=== PATIENT | female | born 1930 | race Caucasian/White ===

== ENCOUNTER 2017-10-21 16:16 | Inpatient (IN) ==
[2017-10-21 18:01] LABS: Basophils # 0.1 K/mcL (0.0-0.2); Basophils % 0.6 %; Eosinophils # 0.5 K/mcL (0.0-0.6); Eosinophils % 4.9 %; Hemoglobin 13.4 g/dL (11.5-15.4); Immature Granulocytes % 0.2 % (0-4); Lymphocytes # 2.2 K/mcL (0.6-4.6); Lymphocytes % 20.8 %; Mean Corpuscular HGB Conc 34.4 g/dL (31.6-35.5); Mean Corpuscular Hemoglobin 28.8 pg (28.0-33.3); Mean Corpuscular Volume 83.7 fL (83.0-100.0); Mean Platelet Volume 9.7 fL (9.4-12.4); Monocytes # 0.8 K/mcL (0.0-1.3); Monocytes % 7.5 %; Neutrophils # 6.8 K/mcL (1.6-8.9); Platelet Count 321 K/mcL (140-400); Red Blood Count 4.66 M/mcL (3.82-4.97); Red Cell Distribution Width 14.6 % (11.5-14.5)
[2017-10-21 18:22] LABS: Alanine Aminotransferase 15 Units/L (7-52); Albumin 4.4 g/dL (3.5-5.7); Albumin/Globulin Ratio 1.5 (1.1-2.2); Alkaline Phosphatase 35 Units/L (34-104); Aspartate Amino Transferase 17 Units/L (13-39); BUN/Creatinine Ratio 16 (6-26); Bilirubin,Total 0.4 mg/dL (0.3-1.0); Blood Urea Nitrogen 15 mg/dL (8-23); Carbon Dioxide 23 mEq/L (23-29); Chloride 102 mEq/L (98-107); Globulin 2.9 g/dL (2.4-3.5); Glucose 115 mg/dL (70-105); Osmolality,Calculated 282 (280-300); Potassium 3.2 mEq/L (3.5-5.1); Sodium 135 mEq/L (136-145); Total Protein 7.3 g/dL (6.4-8.9); Troponin I < 0.03 ng/mL (< 0.04); eGFR For African Americans > 60 (> 60); eGFR For Non-African Americans 58 (> 60)
--- NOTE | 2017-10-21 19:03 | Emergency Department Note ---
Disposition Clinical Impression: New onset a-fib Disposition: Admitted As Inpatient Condition: Fair Referrals: Danette Real CNP [Primary Care Provider] - Forms: ED Satisfaction Letter Weakness HPI - General Chief complaint: ED Weakness Stated complaint: Afib Time Seen by Provider: 10/21/17 17:36 Source: patient Limitations: no limitations Nursing Notes Reviewed: Yes Vital Signs Reviewed: Yes - History of Present Illness HPI Narrative: 87-year-old female presents emergency department with increased weakness and fatigue over the past few days. Patient states she visited her primary care provider who obtained an EKG which showed she had new onset atrial fibrillation. Patient takes Cardizem 120 mg daily. She has not syncopized. She denies chest pain and she denies fever, chills, nausea, vomiting, diarrhea. No history of atrial fibrillation in the past. No recent chest pain. No recent changes in her medications. Pain Scale: 0 - Related Data Home Medications Medication Instructions Recorded Confirmed Calcium Carbonate/Vitamin D3 1 each PO DAILY 01/30/15 07/20/15 [Calcium 600 + D Tablet] Diltiazem CD (24hr) [Cardizem CD] 120 mg PO DAILY 01/30/15 07/20/15 Gabapentin [Neurontin] 600 mg PO HS 01/30/15 07/20/15 Omeprazole [PriLOSEC] 20 mg PO DAILY 01/30/15 07/20/15 Chlorthalidone 25 mg PO DAILY 07/20/15 07/20/15 Cholecalciferol (Vitamin D3) 1,000 unit PO DAILY 07/20/15 07/20/15 [Vitamin D3] Evening [place] Oil [Evening 1 cap PO DAILY 07/20/15 07/20/15 [place]] Levothyroxine [Synthroid] 0 mcg PO DAILY 07/20/15 07/20/15 Losartan [Cozaar] 0 mg PO DAILY 07/20/15 07/20/15 Magnesium Oxide [Magnesium] 300 mg PO DAILY 07/20/15 07/20/15 Multivit-Min/FA/Lycopen/Lutein 1 each PO DAILY 07/20/15 07/20/15 [Centrum Silver Tablet] [place]-3/Dha/Epa/Fish Oil [Fish Oil 1 each PO TID 07/20/15 07/20/15 [place]-3 Softgel] Potassium Chloride [K-Tab ER] 20 meq PO BID 07/20/15 07/20/15 Trihexyphenidyl [Artane] 1 mg PO TID 07/20/15 07/20/15 Allergies Allergy/AdvReac Type Severity Reaction Status Date / Time codeine Allergy unsure Verified 03/14/17 13:17 Sulfa (Sulfonamide Allergy Vomiting Verified 03/14/17 13:17 Antibiotics) All systems ED: reviewed and negative except as stated. Review of Systems: As Per HPI Past Medical History - Past Medical History Attestation: Yes The following information was validated with the patient. Source: patient Medical history: Reports: arthritis, hypertension, thyroid disease, other Surgical history: Reports: cataract (Bilateral), cholecystectomy, hysterectomy ( Total, performed for bleeding associated with .) Psychiatric history: Reports: anxiety - Social History Smoking Status: Never smoker Smokeless Tobacco Status: No Alcohol use: Reports: none Drug use: Reports: none Physical Exam General: Alert and in no acute distress Skin: Warm, dry, intact Head: Normocephalic and atraumatic Neck: Supple, trachea midline and no tenderness Cardiovascular: Irregularly irregular, no murmur, normal perfusion Respiratory: CTAB, no wheezing, cough, or respiratory distress Musculoskeletal: Normal strength, no tenderness, swelling or deformity GI: Soft, nontender, nondistended. Bowel sounds present Neuro: A&O to person, place, time and situation. No focal deficits noted on exam Psychiatric: cooperative and appropriate mood and affect. - General Limitations: no limitations General appearance: alert, in no apparent distress Course Vital Signs Temperature 97.8 F 10/21/17 16:29 Pulse Rate 80 10/21/17 16:29 Respiratory Rate 18 10/21/17 16:29 Blood Pressure 195/90 10/21/17 16:29 O2 Sat by Pulse Oximetry 98 10/21/17 16:29 Temperature 97.8 F 10/21/17 16:29 Pulse Rate 80 10/21/17 18:35 Respiratory Rate 95 10/21/17 18:35 Blood Pressure 164/99 10/21/17 18:35 O2 Sat by Pulse Oximetry 94 10/21/17 18:35 Oxygen Delivery Oxygen Delivery Room Air Weakness - MDM Narrative Medical decision making narrative: Patient is in atrial fibrillation on evaluation in the emergency department. She will be started on heparin for anticoagulation. No history of recent diarrhea or hematochezia or melena. Patient will require admission to the hospital for likely echocardiography of the heart to rule out thrombus as well as cardiology consultation. Vital signs are stable in the emergency Department , she has no chest pain and she is in no distress at this time. Initial troponin negative. - Medical Records Medical records reviewed: Yes I reviewed the patient's medical records. - Lab Data Lab results reviewed: Yes I reviewed the patient's lab results. Result diagrams: 10/21/17 16:34 10/21/17 16:34 Lab Results 10/21/17 10/21/17 Range/Units 16:34 16:34 WBC 10.3 (4.3-11.1) K/mcL RBC 4.66 (3.82-4.97) M/mcL Hgb 13.4 (11.5-15.4) g/dL Hct 39.0 (35.3-44.9) % MCV 83.7 (83.0-100.0) fL MCH 28.8 (28.0-33.3) pg MCHC 34.4 (31.6-35.5) g/dL RDW 14.6 H (11.5-14.5) % Plt Count 321 (140-400) K/mcL MPV 9.7 (9.4-12.4) fL Immature Gran % 0.2 (0-4) % Seg Neutrophils % 66.0 % Lymphocytes % 20.8 % Monocytes % 7.5 % Eosinophils % 4.9 % Basophils % 0.6 % Neutrophils # 6.8 (1.6-8.9) K/mcL Lymphocytes # 2.2 (0.6-4.6) K/mcL Monocytes # 0.8 (0.0-1.3) K/mcL Eosinophils # 0.5 (0.0-0.6) K/mcL Basophils # 0.1 (0.0-0.2) K/mcL Sodium 135 L (136-145) mEq/L Potassium 3.2 L (3.5-5.1) mEq/L Chloride 102 (98-107) mEq/L Carbon Dioxide 23 (23-29) mEq/L BUN 15 (8-23) mg/dL Creatinine 0.91 (0.60-1.20) mg/dL Est GFR ( Amer) > 60 (> 60) Est GFR (Non-Af Amer) 58 L (> 60) BUN/Creatinine Ratio 16 (6-26) Glucose 115 H (70-105) mg/dL Calculated Osmolality 282 (280-300) Calcium 10.0 (8.6-10.3) mg/dL Total Bilirubin 0.4 (0.3-1.0) mg/dL AST 17 (13-39) Units/L ALT 15 (7-52) Units/L Alkaline Phosphatase 35 (34-104) Units/L Troponin I < 0.03 (< 0.04) ng/mL Serum Total Protein 7.3 (6.4-8.9) g/dL Albumin 4.4 (3.5-5.7) g/dL Globulin 2.9 (2.4-3.5) g/dL Albumin/Globulin Ratio 1.5 (1.1-2.2) - Radiology Data Radiology results reviewed: Yes I reviewed the patient's radiology results. - EKG Data EKG attestation: Yes I reviewed and interpreted this EKG. EKG results narrative: Atrial fibrillation with a rate of 75 without evidence of ischemia.
[2017-10-21] MEDS ORDERED: *HR* Heparin 5,000 UNIT/ML VIAL IVP ONE (19:10)
[2017-10-21] MEDS ORDERED: *HR* Heparin 5,000 UNIT/ML VIAL IVP PRN ×2 (19:10)
[2017-10-21 19:49] LABS: INR 1.1
[2017-10-21 19:51] LABS: Bilirubin,Urine Negative (Negative); Blood,Urine Negative (Negative); Clarity,Urine Clear (Clear); Color,Urine Yellow (Yellow); Glucose,Urine (UA) Normal (Normal); Ketones,Urine Negative (Negative); Leukocyte Esterase,Urine Moderate (Negative); Nitrite,Urine Negative (Negative); PH,Urine 6.5 pH Units (5.0-8.0); Protein,Urine Trace mg/dL (Neg-Trace); Specific Gravity,Urine 1.011 (1.010-1.025); Urobilinogen,Urine Normal (Normal)
[2017-10-21 19:52] LABS: Activated Partial Thrombo Time 28.3 Seconds (26.0-36.0)
[2017-10-21 19:57] LABS: Bacteria,Urine None Seen per hpf (None-Few); Hyaline Casts,Urine None Seen per lpf (None-Few); RBC,Urine 0-3 per hpf (0-3); Squamous Epithelial Cell,Urine Moderate per lpf (None-Few)
[2017-10-21 20:18] LABS: Magnesium 1.8 mg/dL (1.6-2.6)
[2017-10-21 20:31] LABS: Thyroid Stimulating Hormone 0.449 mcIU/mL (0.340-5.600)
[2017-10-21] MEDS ORDERED: hydroCHLOROthiazide 25 MG TABLET PO PRN (21:37)
[2017-10-21] MEDS ORDERED: Naloxone 0.4 MG/ML INJ IVP PRN (21:46)
[2017-10-21] MEDS: Heparin 25,000 UNIT/500 ML D5W 25,000 UNIT/500 ML BAG IVC SCH (21:52)
[2017-10-21] MEDS: Gabapentin 300 MG CAPSULE PO SCH (22:16)
[2017-10-21] MEDS: Perphenazine 2 MG TABLET PO SCH (22:17)
[2017-10-21] MEDS: Ibuprofen 800 MG TABLET PO SCH (22:41)
--- NOTE | 2017-10-22 00:18 | Internal Med History&Physical ---
Date of Encounter: 10/21/17 Time of Encounter: 20:00 Internal Medicine - H&P: HPI Chief complaint: Weakness Admitted From: Home Plans for Post Hospital Care: Home History of present illness: Ms. Robbins is a 87 year old female present to ER for weakness and shaking for about 10 days. Past medical history is significant for hypertension, Parkinson disease. Patient said she started to have generalized weakness, hand shaking, feel tired , and exertional short of breath since about 10 days ago. Patient denies chest pain or palpitation. Patient has a mild nausea but no vomiting. Patient went to see her PCP and was found A. fib with normal heart rate. Patient has no history of A. fib previously. Patient came to ER and was admitted for new onset A. fib. I have discussed the CODE STATUS with this patient. Patient clearly told me she does not want CPR but accept intubation. DNR CCA placed. Past Med Surg Social Fam HX - Past Medical History Medical history: arthritis, hypertension, thyroid disease, other Psychiatric history: anxiety - Past Surgical History Surgical History: cataract, cholecystectomy, hysterectomy - Social History Smoking Status: Never smoker Smokeless Tobacco Status: No Alcohol use: none Drug use: none - Family History Mother Hx Family Endocrine Disorder: Yes (DIABETES MELLITUS.) Internal Medicine - H&P: Meds Calcium Carbonate/Vitamin D3 [Calcium 600 + D Tablet] 1 each PO DAILY 01/30/15 [ History] Diltiazem CD (24hr) [Cardizem CD] 240 mg PO QAM 01/30/15 [History] Gabapentin [Neurontin] 600 mg PO HS 01/30/15 [History] Omeprazole [PriLOSEC] 20 mg PO DAILY 01/30/15 [History] Cholecalciferol (Vitamin D3) [Vitamin D3] 1,000 unit PO DAILY 07/20/15 [History] Multivit-Min/FA/Lycopen/Lutein [Centrum Silver Tablet] 1 each PO DAILY 07/20/15 [History] Trihexyphenidyl [Artane] 1 mg PO TID 07/20/15 [History] Amitriptyline [Elavil] 25 mg PO BID 10/21/17 [History] Aspirin [Lo-Dose Aspirin EC] 81 mg PO DAILY 10/21/17 [History] Ibuprofen [Motrin] 800 mg PO DAILY 10/21/17 [History] Lactobacillus Acidophilus [Acidophilus Probiotic] 1 mg PO DAILY 10/21/17 [ History] Levothyroxine Sodium [Levoxyl] 75 mcg PO DAILY 10/21/17 [History] Losartan [Cozaar] 50 mg PO QPM 10/21/17 [History] Perphenazine 4 mg PO BID 10/21/17 [History] Wheat Dextrin [Benefiber] 1 each PO DAILY 10/21/17 [History] hydroCHLOROthiazide [Hydrochlorothiazide] 25 mg PO DAILY PRN 10/21/17 [History] 3 Allergy/AdvReac Type Severity Reaction Status Date / Time codeine Allergy unsure Verified 03/14/17 13:17 Sulfa (Sulfonamide Allergy Vomiting Verified 03/14/17 13:17 Antibiotics) All Systems PM: A 10-system review of systems was performed and is negative for pertinent findings except as documented above in the HPI. - Constitutional Vitals: Temp Pulse Resp BP Pulse Ox 98.7 F 83 16 151/65 95 10/21/17 23:06 10/21/17 23:06 10/21/17 23:06 10/21/17 23:06 10/21/17 23:06 General appearance: Present: A&O X 3, pleasant, no acute distress, answers questions appropriately - Head Head exam: Present: atraumatic, normocephalic - Eye Eye exam: Present: PERRL, conjuntiva pink, sclera anicteric Pupils: Present: PERRL - Neck Neck exam general surgery: Present: supple, trachea midline. Absent: lymphadenopathy - Respiratory Respiratory exam: Present: CTAB. Absent: accessory muscle use, rales, rhonchi, wheezes - Cardiovascular Cardiovascular exam: Present: irregular rhythm, +S1, +S2. Absent: diastolic murmur, gallop, rubs, systolic murmur - GI/Abdominal GI/Abdominal exam: Present: normal bowel sounds, soft, no peritoneal signs. Absent: distended, tenderness - Extremities Exam Extremities exam: Present: warm, radial pulses palpable and symmetrical. Absent : calf tenderness, cyanotic, pedal edema - Neurological Exam Neurological exam: Present: CN II-XII intact, oriented X3, no focal deficits. Absent: pronater drift, facial droop, speech deficit - Skin Skin exam: Present: dry, intact Internal Med - H&P Results - Labs CBC & Chem 7: 10/21/17 16:34 10/21/17 16:34 - EKG Data -: EKG Interpreted by Myself (A. fib) Rate: normal - Assessment and plan (1) Hypertension Current Visit: Yes Status: Acute Assessment and plan: Continue home medications Qualifiers: Hypertension type: essential hypertension Qualified Code(s): I10 - Essential (primary) hypertension (2) New onset a-fib Current Visit: Yes Status: Acute Assessment and plan: Patient has exertional shortness of breath and feel tired. Heart rate is well controlled now. CHADS-VASC score 4. - Continuous cardiac monitoring - Heparin drip was started by ER - Echo, TSH, magnesium. Correct hypokalemia. - Consul cardiology for further management (3) DVT prophylaxis Current Visit: No Status: Acute Assessment and plan: Patient is on heparin drip (4) Parkinsonian features Current Visit: No Status: Acute Assessment and plan: Continue home medications (5) Hypokalemia Current Visit: No Status: Chronic Assessment and plan: Give potassium supplement. Follow-up potassium level (6) UTI (urinary tract infection) Current Visit: Yes Status: Acute Assessment and plan: Urinalysis shows UTI. Place patient on Rocephin. Follow-up urine culture. Qualifiers: Urinary tract infection type: acute cystitis Hematuria presence: without hematuria Qualified Code(s): N30.00 - Acute cystitis without hematuria - Time Spent With Patient Total time spent is greater than 50% in coordination of care (as documented) at patient's floor/unit and/or counseling patient: 40 minutes Greater than 35 minutes
[2017-10-22] MEDS ORDERED: cefTRIAXone 1,000 MG in 0.9 % Sodium Chloride Mini Bag 100 ML IVPB SCH (01:00)
[2017-10-22] MEDS: cefTRIAXone 1,000 MG in Water for inj. (sterile) 20 ML 10 ML IVPB SCH (02:20)
[2017-10-22 05:23] LABS: Basophils # 0.1 K/mcL (0.0-0.2); Basophils % 0.9 %; Eosinophils # 0.7 K/mcL (0.0-0.6); Eosinophils % 9.2 %; Hematocrit 33.4 % (35.3-44.9); Immature Granulocytes % 0.2 % (0-4); Lymphocytes # 2.8 K/mcL (0.6-4.6); Lymphocytes % 35.3 %; Mean Corpuscular HGB Conc 33.2 g/dL (31.6-35.5); Mean Corpuscular Hemoglobin 27.8 pg (28.0-33.3); Mean Corpuscular Volume 83.7 fL (83.0-100.0); Mean Platelet Volume 9.7 fL (9.4-12.4); Monocytes # 0.8 K/mcL (0.0-1.3); Monocytes % 9.5 %; Neutrophils # 3.6 K/mcL (1.6-8.9); Platelet Count 298 K/mcL (140-400); Red Blood Count 3.99 M/mcL (3.82-4.97); Red Cell Distribution Width 14.6 % (11.5-14.5); Segmented Neutrophils % 44.9 %
[2017-10-22 05:31] LABS: Hemoglobin 11.1 g/dL (11.5-15.4)
[2017-10-22 05:42] LABS: BUN/Creatinine Ratio 19 (6-26); Blood Urea Nitrogen 13 mg/dL (8-23); Calcium 9.1 mg/dL (8.6-10.3); Carbon Dioxide 25 mEq/L (23-29); Chloride 108 mEq/L (98-107); Glucose 113 mg/dL (70-105); Osmolality,Calculated 289 (280-300); Potassium 3.2 mEq/L (3.5-5.1); Sodium 139 mEq/L (136-145); eGFR For African Americans > 60 (> 60); eGFR For Non-African Americans > 60 (> 60)
[2017-10-22 05:59] LABS: Triiodothyronine (T3) Free 3.06 pg/mL (2.50-3.90)
[2017-10-22 06:04] LABS: Triiodothyronine (T3) Total 0.63 ng/mL (0.87-1.78)
--- NOTE | 2017-10-22 07:09 | Electrocardiograph Report ---
[place] [id number] Test Date: 2017-10-21 Pat Name: Peyton Robbins Department: 104 Room: 3B32 Gender: F Singing Messenger: : [id number] Requested By: Irene Dobbins Order Number: [id number] Reading MD: Red Paige Measurements Intervals [place] Rate: 75 P: MA: 0 QRS: -13 QRSD: 82 T: 3 QT: 359 QTc: 388 Interpretive Statements ATRIAL FIBRILLATION VOLTAGE CRITERIA FOR [facility] Electronically Signed On 10-22-2017 7:07:43 EDT by Red Paige
[2017-10-22] MEDS: Aspirin Enteric Coated 81 MG Tablet PO SCH (08:10)
[2017-10-22] MEDS: Ibuprofen 800 MG TABLET PO SCH ×2 (08:10→10:15)
[2017-10-22] MEDS: Diltiazem CD (24hr) 120 MG CAPSULE PO SCH (08:10)
[2017-10-22] MEDS: Perphenazine 2 MG TABLET PO SCH ×2 (08:11→20:59)
--- NOTE | 2017-10-22 10:03 | Cardiology Consult Note ---
<Lissy Mendoza - Last Filed: 10/22/17 09:58> Date of Encounter: 10/22/17 Time of Encounter: 09:00 Assessment and Plan (1) A-fib Current Visit: Yes Status: Acute Per cardiology: -Admitted with apparent new onset a.fib. however suspect may be chronci with moderately dilated left atrium per TTE 08/2015. -On cardizem, HR controlled. Average HR previous 12 hours noted to be 75. -TTE pending. -[id number] score 6 (age, gender, HTN, previous DVT). Currently on heparin drip. -Denies bleeding or blood loss. Denies falls. States steady on feet and does not use a cane or walker. -Of note, Hemoglobin on admission 13.4, today 11.1. Management per primary service. -Agree with cardizem. -Pending TTE if no significant valvular dysfunction, will alvarado check eliquis as patient prefers DOAC to coumadin. -With high [id number] score, would recommend oil heaterman anticoagulation, pending hemoglobin stabilizes. Qualifiers: Atrial fibrillation type: unspecified Qualified Code(s): I48.91 - Unspecified atrial fibrillation Discussion w patient/family: The assessment and plan as outlined above was discussed with the patient and/or family members who expressed understanding and agreement. All questions were answered. Thank you for involving us in the care of your patient. Please call with any questions. Discussed and reviewed with . History of Present Illness Consult date: 10/21/17 Requesting physician: Cyndy Em Consult reason: a.fib Chief complaint: weakness, shakiness History of present illness: Ms. Robbins is a 87 year old female with a relevant past medical history of HTN, parkinsons disease, history of DVT, restless leg syndrome, anxiety, GERD, hypothyroidism who presented to [facility] as recommended by PCP for new onset a.fib. Patient reports was feeling weak and shaky at PCPs office. Patient reports has had intermittent palpitations for years. Denies chest pain or increased shortness of breath. Denies current shakiness or weakness. Denies current palpitations. Past Med Surg Social Fam HX - Past Medical History Attestation: Yes The following information was validated with the patient. Source: patient, old records reviewed Medical history: arthritis, DVT, hypertension, thyroid disease, other Psychiatric history: anxiety - Past Surgical History Surgical History: cataract, cholecystectomy, hysterectomy - Social History Smoking Status: Never smoker Smokeless Tobacco Status: No Alcohol use: none Drug use: none - Family History Mother Hx Family Endocrine Disorder: Yes (DIABETES MELLITUS.) Medications and Allergies Calcium Carbonate/Vitamin D3 [Calcium 600 + D Tablet] 1 each PO DAILY 01/30/15 [ History] Diltiazem CD (24hr) [Cardizem CD] 240 mg PO QAM 01/30/15 [History] Gabapentin [Neurontin] 600 mg PO HS 01/30/15 [History] Omeprazole [PriLOSEC] 20 mg PO DAILY 01/30/15 [History] Cholecalciferol (Vitamin D3) [Vitamin D3] 1,000 unit PO DAILY 07/20/15 [History] Multivit-Min/FA/Lycopen/Lutein [Centrum Silver Tablet] 1 each PO DAILY 07/20/15 [History] Trihexyphenidyl [Artane] 1 mg PO TID 07/20/15 [History] Amitriptyline [Elavil] 25 mg PO BID 10/21/17 [History] Aspirin [Lo-Dose Aspirin EC] 81 mg PO DAILY 10/21/17 [History] Ibuprofen [Motrin] 800 mg PO DAILY 10/21/17 [History] Lactobacillus Acidophilus [Acidophilus Probiotic] 1 mg PO DAILY 10/21/17 [ History] Levothyroxine Sodium [Levoxyl] 75 mcg PO DAILY 10/21/17 [History] Losartan [Cozaar] 50 mg PO QPM 10/21/17 [History] Perphenazine 4 mg PO BID 10/21/17 [History] Wheat Dextrin [Benefiber] 1 each PO DAILY 10/21/17 [History] hydroCHLOROthiazide [Hydrochlorothiazide] 25 mg PO DAILY PRN 10/21/17 [History] 3 Allergy/AdvReac Type Severity Reaction Status Date / Time codeine Allergy unsure Verified 03/14/17 13:17 Sulfa (Sulfonamide Allergy Vomiting Verified 03/14/17 13:17 Antibiotics) All Systems Review: The remainder of the systems were reviewed and are negative - Constitutional Constitutional: weakness - Cardiovascular Cardiovascular: as per HPI, palpitations Physical Examination Vital Signs, Last 4 Hours Temp Pulse Resp BP Pulse Ox 10/22/17 06:42 98.6 F 77 14 151/56 95 General: Conversant, No Apparent Distress HEENT: Atraumatic, Normocephaly, Mucus Membranes Moist Neck: No JVD, Normal carotid pulses Cardiac: Normal S1 and S2, No Murmur, Other (Irregularly irregular) Lungs: Normal Breath Sounds, No Wheeze, Rales, Rhonchi Neuro: Alert and responsive, No focal deficits noted Abdomen: Soft, Non-Tender Skin: No rashes noted on visualized skin Musculoskeletal: No Chest Wall Tenderness Extremities: No Clubbing, No Cyanosis, No Edema, Normal Pulses Results 10/22/17 05:09 10/22/17 05:09 Lab Results Impressions Chest X-Ray 10/21/17 16:34 IMPRESSION: Mild interstitial edema with small right and possible tiny left effusions. D/ / Xavi Mesa / Xavi Mesa Interpreting Provider: Xavi Mesa Active Medications Acetaminophen (Tylenol) 650 mg PO Q6HR PRN PRN Reason: Mild Pain/Fever Stop: 04/22/18 21:47 Amitriptyline HCl (Elavil) 25 mg PO BID KIARA Stop: 04/22/18 21:46 Last Admin: 10/22/17 08:10 Dose: 25 mg Aspirin (Aspirin Ec) 81 mg PO DAILY KIARA Stop: 04/23/18 09:01 Last Admin: 10/22/17 08:10 Dose: 81 mg Calcium Carbonate (Tums) 500 mg PO DAILY KIARA Stop: 04/23/18 09:01 Last Admin: 10/22/17 08:09 Dose: 500 mg Diltiazem HCl (Cardizem Cd) 240 mg PO QAM KIARA Stop: 04/23/18 09:01 Last Admin: 10/22/17 08:10 Dose: 240 mg Gabapentin (Neurontin) 600 mg PO HS [facility] Stop: 04/22/18 21:46 Last Admin: 10/21/17 22:16 Dose: 600 mg Heparin Sodium (Porcine) (Heparin) 4,300 unit 70 unit/kg (4300 unit) IVP Q6HR PRN PRN Reason: SEE COMMENTS Stop: 04/22/18 19:11 Heparin Sodium (Porcine) (Heparin) 2,200 unit 35 unit/kg (2200 unit) IVP Q6H PRN PRN Reason: SEE COMMENTS Stop: 04/22/18 19:11 Hydrochlorothiazide (Hydrochlorothiazide) 25 mg PO DAILY PRN; Protocol PRN Reason: SWELLING Stop: 04/22/18 21:38 Heparin Sodium/Dextrose (Heparin 25,000 Unit/500 Ml D5w) 25,000 unit in 500 mls @ 17.273 mls/hr IVC .Q24H KIARA; 14 UNIT/KG/HR PRN Reason: Protocol Stop: 04/22/18 19:16 Last Titration: 10/22/17 06:05 Dose: 14 unit/kg/hr, 17.273 mls/hr Ceftriaxone Sodium 1,000 mg/ (Sterile Water) 10 mls @ 600 mls/hr IVPB Q24H KIARA Stop: 04/23/18 03:01 Last Admin: 10/22/17 02:20 Dose: 600 mls/hr Ibuprofen (Motrin) 800 mg PO DAILY KIARA PRN Reason: Protocol Stop: 04/22/18 22:31 Last Admin: 10/22/17 08:10 Dose: Not Given Losartan Potassium (Cozaar) 50 mg PO QPM KIARA PRN Reason: Protocol Stop: 04/22/18 21:46 Last Admin: 10/21/17 22:16 Dose: 50 mg Naloxone HCl (Narcan) 0.4 mg IVP Q2MIN PRN PRN Reason: SEE COMMENTS Stop: 04/22/18 21:47 Perphenazine (Trilafon) 4 mg PO BID KIARA Stop: 04/22/18 21:46 Last Admin: 10/22/17 08:11 Dose: 4 mg Trihexyphenidyl HCl (Artane) 1 mg PO TID KIARA Stop: 04/22/18 21:46 Last Admin: 10/22/17 08:09 Dose: 1 mg Laboratory Tests 10/21/17 10/21/17 10/22/17 16:34 16:34 05:09 Hgb 13.4 11.1 L D Potassium Creatinine Troponin I < 0.03 TSH 0.449 10/22/17 05:09 Hgb Potassium 3.2 L Creatinine 0.67 Troponin I TSH - Imaging and Cardiology Chest Xray: report reviewed Echo: pending, report reviewed - EKG Interpretation EKG results cardiology: personally reviewed (ECG with a.fib HR 75.), other ( Telemetry reviewed with average HR previous 12 hours noted to be 75, a.fib. 2.1 second puase noted. PVCs noted.) Consult Discharge Plan - Plan Referrals: Danette Real, [facility] [Primary Care Provider] - <CyrusRudolph - Last Filed: 10/22/17 13:23> Date of Encounter: 10/22/17 - Attending Attestation I have personally performed a face to face evaluation on this patient. I have reviewed and agree with the care plan. History and Exam by me shows: 87 YOF with previous preserved EF now with PAF on heparin drip agreed to start Eliquis knowing R/B/A of AC Vs ASA. ECHO also obtained to evaluate for SHD Assessment and Plan Discussion w patient/family: The assessment and plan as outlined above was discussed with the patient and/or family members who expressed understanding and agreement. All questions were answered. Thank you for involving us in the care of your patient. Please call with any questions. History of Present Illness History of present illness: Ms. Robbins is a 87 year old female All Systems Review: The remainder of the systems were reviewed and are negative Physical Examination Vital Signs, Last 4 Hours Temp Pulse Resp BP Pulse Ox 10/22/17 11:46 97.8 F 77 14 147/72 97 Results 10/22/17 05:09 10/22/17 05:09 Lab Results 10/22/17 10/22/17 10/22/17 05:09 05:09 05:09 WBC 8.0 Hgb 11.1 L D Hct 33.4 L Plt Count 298 APTT 93.6 H D Sodium 139 Potassium 3.2 L Chloride 108 H Carbon Dioxide 25 BUN 13 Creatinine 0.67 Glucose 113 H Calcium 9.1 10/22/17 11:37 WBC Hgb Hct Plt Count APTT 74.0 H Sodium Potassium Chloride Carbon Dioxide BUN Creatinine Glucose Calcium
[2017-10-22] MEDS: Acetaminophen 325 MG TABLET PO PRN (13:12)
--- NOTE | 2017-10-22 13:46 | Internal Med Progress Note ---
Date of Encounter: 10/22/17 Time of Encounter: 13:46 - Assessment and plan (1) New onset a-fib Current Visit: Yes Status: Acute Assessment and plan: 2 week history of shortness of breath, palpitations and weakness/fatigue. Found to be in A. fib, no prior official diagnosis of A. fib. Cardiology following-per cardiology'ssuspect that A. fib may be chronic due to moderately dilated left atrium per TTE 08/2015. Chads risk score arrival of 4. TSH obtained and found to be normal, no joint abnormalities with the exception of hypokalemia. Patient has exertional shortness of breath and feel tired. Heart rate is well controlled now. CHADS-VASC score 4. - Continuous cardiac monitoring - Continue heparin drip - Patient needs long-term anticoagulation and is requesting eliquis. Continue to monitor hemoglobin and hematocrit and start eliquis at recommendations of cardiology. - Today's TTE with LVEF 55-60%, indeterminate diastolic function, normal right ventricular structure and function, severely dilated left atrium, moderate mitral regurgitation, mild tricuspid regurgitation, mild pulmonary hypertension. (2) UTI (urinary tract infection) Current Visit: Yes Status: Acute Assessment and plan: History of recent UTI. UA on admission shows moderate leukocyte Estrace suspicious for UTI. Follow-up on urine cultures, continue Rocephin Qualifiers: Urinary tract infection type: acute cystitis Hematuria presence: without hematuria Qualified Code(s): N30.00 - Acute cystitis without hematuria (3) Hypokalemia Current Visit: Yes Status: Chronic Assessment and plan: Give potassium supplement. Follow-up potassium level in the morning, remain on telemetry. (4) Parkinsonian features Current Visit: Yes Status: Acute Assessment and plan: Continue Artane and Trilafon for Parkinsonian symptoms (5) Hypertension Current Visit: Yes Status: Acute Assessment and plan: History of hypertension, initially presented with HTN with SBP in 180s-190s. Blood pressure is stable over the last 24 hours, continue home anti-HTN medications and monitor him and anemic status closely Qualifiers: Hypertension type: essential hypertension Qualified Code(s): I10 - Essential (primary) hypertension (6) DVT prophylaxis Current Visit: Yes Status: Acute Assessment and plan: Continue heparin drip. - Time Spent With Patient Total time spent is greater than 50% in coordination of care (as documented) at patient's floor/unit and/or counseling patient: 25 - 35 minutes - Subjective Interval history: Patient seen and examined at bedside today, does not appear short of breath at rest, reporting continued shortness of breath with exertion. She was admitted with a two-week history of increasing shortness of breath, dizziness and palpitations and found to have a new diagnosis of A. fib. Today, continues to admit palpitations, worsening with exertion. No additional complaints at this time. - Constitutional Vitals: Temp Pulse Resp BP Pulse Ox 97.8 F 77 14 147/72 97 10/22/17 11:46 10/22/17 11:46 10/22/17 11:46 10/22/17 11:46 10/22/17 11:46 General appearance: Present: A&O X 3, pleasant, no acute distress, answers questions appropriately - Head Head exam: Present: atraumatic, normocephalic - Eye Eye exam: Present: PERRL, conjuntiva pink, sclera anicteric Pupils: Present: PERRL - Neck Neck exam general surgery: Present: supple, trachea midline. Absent: lymphadenopathy - Respiratory Respiratory exam: Present: CTAB. Absent: accessory muscle use, rales, rhonchi, wheezes - Cardiovascular Cardiovascular exam: Present: irregular rhythm. Absent: diastolic murmur, gallop, rubs, systolic murmur - GI/Abdominal GI/Abdominal exam: Present: normal bowel sounds, soft, no peritoneal signs. Absent: distended, tenderness - Extremities Exam Extremities exam: Present: warm, radial pulses palpable and symmetrical. Absent : calf tenderness, cyanotic, pedal edema - Neurological Exam Neurological exam: Present: CN II-XII intact, oriented X3, no focal deficits. Absent: pronater drift, facial droop, speech deficit - Skin Skin exam: Present: dry, intact Internal Medicine: Result - Labs CBC & Chem 7: 10/22/17 05:09 10/22/17 05:09 Labs: Short CBC 10/22/17 Range/Units 05:09 WBC 8.0 (4.3-11.1) K/mcL Hgb 11.1 L D (11.5-15.4) g/dL Hct 33.4 L (35.3-44.9) % Plt Count 298 (140-400) K/mcL Neutrophils # 3.6 (1.6-8.9) K/mcL BMP 10/22/17 05:09 Sodium 139 Potassium 3.2 L Chloride 108 H Carbon Dioxide 25 BUN 13 Creatinine 0.67 Glucose 113 H Calcium 9.1 - ABG Interpretation ABG results: PT/INR, D-dimer PT 12.0 Seconds (9.4-12.1) 10/21/17 18:06 - Impressions Impressions Echocardiogram 10/22/17 21:47 Impressions: LVEF 55-60%. Indeterminate diastolic function. Normal right ventricular structure and function. Severely dilated left atrium. Moderate mitral regurgitation. Mild tricuspid regurgitation. Mild pulmonary hypertension. Left Ventricular Wall Motion: Rest Echo Findings All wall segments showed normal motion. Findings: Study Quality * Technically adequate exam. ECG Findings * Atrial fibrillation. Left Ventricle * LVEF 55-60%. * Normal LV chamber size, wall thickness and function. * Indeterminate diastolic function. Right Ventricle * Normal right ventricular structure and function. Left Atrium * Severely dilated left atrium. Right Atrium * Normal right atrial size. Aortic Valve * Trace aortic regurgitation. * Aortic valve not well visualized. * No aortic stenosis. Mitral Valve * Moderate mitral regurgitation. * Normal mitral valve structure. * No mitral stenosis. Tricuspid Valve * Mild tricuspid regurgitation. * Normal tricuspid valve structure. * Estimated RA pressure is 3 mmHg. * Estimated RVSP is 38 mmHg. * Mild pulmonary hypertension. Pulmonic Valve * Pulmonic valve is not well visualized. * No pulmonic stenosis. * No pulmonic regurgitation. Pulmonary Artery * Pulmonary artery not well visualized. Aorta * Normally sized aortic root. Pericardium * There is no pericardial effusion present. Interatrial Septum * No evidence of PFO by color Doppler. IVC * Normal IVC dimensions and inspiratory collapse. Consult Discharge Plan - Plan Referrals: Danette Real, [facility] [Primary Care Provider] -
[2017-10-22] MEDS: Gabapentin 300 MG CAPSULE PO SCH (20:59)
[2017-10-23] MEDS: Heparin 25,000 UNIT/500 ML D5W 25,000 UNIT/500 ML BAG IVC SCH (01:34)
[2017-10-23] MEDS: cefTRIAXone 1,000 MG in Water for inj. (sterile) 20 ML 10 ML IVPB SCH (02:41)
[2017-10-23] MEDS: Diltiazem CD (24hr) 120 MG CAPSULE PO SCH (08:36)
[2017-10-23] MEDS: Perphenazine 2 MG TABLET PO SCH ×2 (08:37→20:21)
[2017-10-23] MEDS: Aspirin Enteric Coated 81 MG Tablet PO SCH (08:38)
[2017-10-23] MEDS: Ibuprofen 800 MG TABLET PO SCH ×2 (08:40→18:37)
[2017-10-23 09:11] LABS: Hematocrit 37.3 % (35.3-44.9); Hemoglobin 12.7 g/dL (11.5-15.4); Mean Corpuscular Hemoglobin 28.7 pg (28.0-33.3); Mean Corpuscular Volume 84.4 fL (83.0-100.0); Mean Platelet Volume 10.2 fL (9.4-12.4); Platelet Count 317 K/mcL (140-400); Red Blood Count 4.42 M/mcL (3.82-4.97); Red Cell Distribution Width 14.7 % (11.5-14.5)
--- NOTE | 2017-10-23 10:03 | Cardiology Progress Note ---
Date of Encounter: 10/23/17 Time of Encounter: 09:30 Assessment and Plan (1) A-fib Current Visit: Yes Status: Acute Per cardiology: -Admitted with apparent new onset a.fib. however suspect may be chronic with moderately dilated left atrium per TTE 08/2015. -On cardizem, HR controlled. Average HR previous 12 hours noted to be 75. -TTE with LVEF 55-60%, severely dilated LA, moderate MR, mild TR, mild PH, no segmental wall motion abnormalities. -[id number] score 6 (age, gender, HTN, previous DVT). Currently on heparin drip. -Denies bleeding or blood loss. Denies falls. States steady on feet and does not use a cane or walker. -Hemoglobin stable today. -Agree with cardizem. -Discussed TTE findings, moderate MR with , states ok for eliquis for patient. Will start eliquis 5mg BID. Will stop heparin drip. -Cardiology will sign off and will follow in outpatient setting. Follow up set. Qualifiers: Atrial fibrillation type: unspecified Qualified Code(s): I48.91 - Unspecified atrial fibrillation Discussion w patient/family: The assessment and plan as outlined above was discussed with the patient who expressed understanding and agreement. All questions were answered. Thank you for involving us in the care of your patient. Please call with any questions. Discussed and reviewed with . Subjective Principal diagnosis: a.fib Interval history: Patient reports is feeling good today. Denies complaints. Objective Vital Signs, Last 4 Hours Temp Pulse Resp BP Pulse Ox 10/23/17 07:38 97.9 F 81 17 138/75 95 General: Conversant, No Apparent Distress HEENT: Atraumatic, Normocephaly, Mucus Membranes Moist Neck: No JVD, Normal carotid pulses Cardiac: Normal S1 and S2, No Murmur, Other (Irregularly irregular) Lungs: Normal Breath Sounds, No Wheeze, Rales, Rhonchi Neuro: Alert and responsive, No focal deficits noted Abdomen: Soft, Non-Tender Skin: No rashes noted on visualized skin Musculoskeletal: No Chest Wall Tenderness Extremities: No Clubbing, No Cyanosis, No Edema, Normal Pulses Results 10/23/17 08:13 10/22/17 05:09 Lab Results Impressions Echocardiogram 10/22/17 21:47 Impressions: LVEF 55-60%. Indeterminate diastolic function. Normal right ventricular structure and function. Severely dilated left atrium. Moderate mitral regurgitation. Mild tricuspid regurgitation. Mild pulmonary hypertension. Left Ventricular Wall Motion: Rest Echo Findings All wall segments showed normal motion. Findings: Study Quality * Technically adequate exam. ECG Findings * Atrial fibrillation. Left Ventricle * LVEF 55-60%. * Normal LV chamber size, wall thickness and function. * Indeterminate diastolic function. Right Ventricle * Normal right ventricular structure and function. Left Atrium * Severely dilated left atrium. Right Atrium * Normal right atrial size. Aortic Valve * Trace aortic regurgitation. * Aortic valve not well visualized. * No aortic stenosis. Mitral Valve * Moderate mitral regurgitation. * Normal mitral valve structure. * No mitral stenosis. Tricuspid Valve * Mild tricuspid regurgitation. * Normal tricuspid valve structure. * Estimated RA pressure is 3 mmHg. * Estimated RVSP is 38 mmHg. * Mild pulmonary hypertension. Pulmonic Valve * Pulmonic valve is not well visualized. * No pulmonic stenosis. * No pulmonic regurgitation. Pulmonary Artery * Pulmonary artery not well visualized. Aorta * Normally sized aortic root. Pericardium * There is no pericardial effusion present. Interatrial Septum * No evidence of PFO by color Doppler. IVC * Normal IVC dimensions and inspiratory collapse. Active Medications Acetaminophen (Tylenol) 650 mg PO Q6HR PRN PRN Reason: Mild Pain/Fever Stop: 04/22/18 21:47 Last Admin: 10/22/17 13:12 Dose: 650 mg Amitriptyline HCl (Elavil) 25 mg PO BID [facility] Stop: 04/22/18 21:46 Last Admin: 10/23/17 08:36 Dose: 25 mg Apixaban (Eliquis) 5 mg PO BID [facility] Stop: 04/24/18 10:01 Aspirin (Aspirin Ec) 81 mg PO DAILY [facility] Stop: 04/23/18 09:01 Last Admin: 10/23/17 08:38 Dose: 81 mg Calcium Carbonate (Tums) 500 mg PO DAILY [facility] Stop: 04/23/18 09:01 Last Admin: 10/23/17 08:37 Dose: 500 mg Diltiazem HCl (Cardizem Cd) 240 mg PO QAM [facility] Stop: 04/23/18 09:01 Last Admin: 10/23/17 08:36 Dose: 240 mg Gabapentin (Neurontin) 600 mg PO HS [facility] Stop: 04/22/18 21:46 Last Admin: 10/22/17 20:59 Dose: 600 mg Hydrochlorothiazide (Hydrochlorothiazide) 25 mg PO DAILY PRN; Protocol PRN Reason: SWELLING Stop: 04/22/18 21:38 Ceftriaxone Sodium 1,000 mg/ (Sterile Water) 10 mls @ 600 mls/hr IVPB Q24H [facility] Stop: 04/23/18 03:01 Last Admin: 10/23/17 02:41 Dose: 600 mls/hr Ibuprofen (Motrin) 800 mg PO DAILY [facility] PRN Reason: Protocol Stop: 04/22/18 22:31 Last Admin: 10/23/17 08:40 Dose: Not Given Losartan Potassium (Cozaar) 50 mg PO QPM [facility] PRN Reason: Protocol Stop: 04/22/18 21:46 Last Admin: 10/22/17 17:23 Dose: 50 mg Naloxone HCl (Narcan) 0.4 mg IVP Q2MIN PRN PRN Reason: SEE COMMENTS Stop: 04/22/18 21:47 Perphenazine (Trilafon) 4 mg PO BID [facility] Stop: 04/22/18 21:46 Last Admin: 10/23/17 08:37 Dose: 4 mg Trihexyphenidyl HCl (Artane) 1 mg PO TID [facility] Stop: 04/22/18 21:46 Last Admin: 10/23/17 08:37 Dose: 1 mg Laboratory Tests 10/23/17 08:13 Hgb 12.7 D - Imaging and Cardiology Chest Xray: report reviewed Echo: report reviewed - EKG Interpretation EKG results cardiology: other (Telemetry reviewed with average HR previous 12 hours noted to be 75, a.fib. PVCS noted. 2.1 second pause noted.) Consult Discharge Plan - Plan Referrals: Danette Real, [facility] [Primary Care Provider] -
[2017-10-23] MEDS: Apixaban 5 MG TABLET PO SCH ×2 (10:59→20:21)
--- NOTE | 2017-10-23 14:42 | Internal Med Progress Note ---
Date of Encounter: 10/23/17 Time of Encounter: 13:30 - Assessment and plan (1) New onset a-fib Current Visit: Yes Status: Acute Assessment and plan: 2-week history of shortness of breath, palpitations and weakness/fatigue Secondary to New Onset of A. fib. However, TTE revealed moderately dilated left atrium, A. fib likely chronic and undiagnosed. No acute events noted overnight, telemetry shows an average heart rate of 70, rhythm continues to be irregular, irregular 3 irregular rhythm per auscultation. Patient has exertional shortness of breath and feels tired most likely secondary to A. fib.. Heart rate is well controlled now. CHADS-VASC score 4. - Continuous cardiac monitoring - Heparin drip discontinued, patient started on eliquis. - 10/22/17 TTE with LVEF 55-60%, indeterminate diastolic function, normal right ventricular structure and function, severely dilated left atrium, moderate mitral regurgitation, mild tricuspid regurgitation, mild pulmonary hypertension. (2) UTI (urinary tract infection) Current Visit: Yes Status: Acute Assessment and plan: History of recent UTI. UA on admission shows moderate leukocyte Estrace suspicious for UTI Follow-up of urine cultures reveals preliminary no growth Patient has been taking ceftriaxone, discontinue this medication now, continue to monitor. Qualifiers: Urinary tract infection type: acute cystitis Hematuria presence: without hematuria Qualified Code(s): N30.00 - Acute cystitis without hematuria (3) Hypokalemia Current Visit: Yes Status: Chronic Assessment and plan: Resolved with today's labs, potassium 3.5 Follow-up potassium level in the morning, remain on telemetry. (4) Parkinsonian features Current Visit: Yes Status: Acute Assessment and plan: Continue Artane and Trilafon and monitor for worsening of Parkinsonian symptoms (5) Hypertension Current Visit: Yes Status: Acute Assessment and plan: History of hypertension, Blood pressure is stable over the last 24 hours. Currently on Cozaar and HCTZ, continue Qualifiers: Hypertension type: essential hypertension Qualified Code(s): I10 - Essential (primary) hypertension (6) DVT prophylaxis Current Visit: Yes Status: Acute Assessment and plan: Heparin drip discontinued, patient started on eliquis, increase activity - Time Spent With Patient Total time spent is greater than 50% in coordination of care (as documented) at patient's floor/unit and/or counseling patient: - Subjective Interval history: Patient seen and examined at bedside today, does not appear short of breath at rest, continuing to report shortness of breath with exertion, reporting that she is having difficulty with ambulation to the bathroom and back to bed without feeling short of breath. His been ongoing over the last 2 weeks with associated symptoms of dizziness and palpitations. She was found to have a new diagnosis of A. fib admission. Today she is continue to have palpitations which worsen with exertion. Has UTI, denies dysuria, urinary urgency/frequency , flank pain. - Constitutional Vitals: Temp Pulse Resp BP Pulse Ox 97.5 F L 76 16 156/84 94 10/23/17 10:45 10/23/17 10:45 10/23/17 10:45 10/23/17 10:45 10/23/17 10:45 General appearance: Present: A&O X 3, pleasant, no acute distress, answers questions appropriately - Head Head exam: Present: atraumatic, normocephalic - Eye Eye exam: Present: PERRL, conjuntiva pink, sclera anicteric Pupils: Present: PERRL - Neck Neck exam general surgery: Present: supple, trachea midline. Absent: lymphadenopathy - Respiratory Respiratory exam: Present: CTAB. Absent: accessory muscle use, rales, rhonchi, wheezes - Cardiovascular Cardiovascular exam: Present: irregular rhythm, +S1, +S2. Absent: diastolic murmur, gallop, rubs, systolic murmur - GI/Abdominal GI/Abdominal exam: Present: normal bowel sounds, soft, no peritoneal signs. Absent: distended, tenderness - Extremities Exam Extremities exam: Present: warm, radial pulses palpable and symmetrical. Absent : calf tenderness, cyanotic, pedal edema - Neurological Exam Neurological exam: Present: CN II-XII intact, oriented X3, no focal deficits. Absent: pronater drift, facial droop, speech deficit - Skin Skin exam: Present: dry, intact Internal Medicine: Result - Labs CBC & Chem 7: 10/23/17 08:13 10/23/17 13:58 Labs: Short CBC 10/23/17 Range/Units 08:13 WBC 8.5 (4.3-11.1) K/mcL Hgb 12.7 D (11.5-15.4) g/dL Hct 37.3 (35.3-44.9) % Plt Count 317 (140-400) K/mcL - ABG Interpretation ABG results: PT/INR, D-dimer PT 12.0 Seconds (9.4-12.1) 10/21/17 18:06 Consult Discharge Plan - Plan Referrals: Danette Real, [facility]IDENT[facility] ASSISTANT [Primary Care Provider] -
[2017-10-23] MEDS: Gabapentin 300 MG CAPSULE PO SCH (20:21)
[2017-10-23] MEDS ORDERED: Ibuprofen 800 MG TABLET PO ONE (20:52)
[2017-10-24] MEDS: Diltiazem CD (24hr) 120 MG CAPSULE PO SCH (07:56)
[2017-10-24] MEDS: Perphenazine 2 MG TABLET PO SCH ×2 (07:57→20:51)
[2017-10-24] MEDS: Aspirin Enteric Coated 81 MG Tablet PO SCH (07:57)
[2017-10-24] MEDS: Ibuprofen 800 MG TABLET PO SCH (07:57)
[2017-10-24] MEDS: Apixaban 5 MG TABLET PO SCH ×2 (07:57→20:51)
[2017-10-24] MEDS: Nitrofurantoin (BID) 100 MG CAPSULE PO SCH ×2 (13:42→17:13)
[2017-10-24] MEDS ORDERED: Ondansetron ODT 4 MG TAB.RAPDIS SL PRN (16:03)
--- NOTE | 2017-10-24 17:01 | Internal Med Progress Note ---
Date of Encounter: 10/24/17 Time of Encounter: 16:31 - Assessment and plan (1) New onset a-fib Current Visit: Yes Status: Acute Assessment and plan: 2-week history of shortness of breath, palpitations and weakness/fatigue Secondary to New Onset of A. fib. However, TTE revealed moderately dilated left atrium, A. fib likely chronic and undiagnosed. Continue to have no acute events overnight. Average pulse rate in the 70s Included a TTE with results as follows - 10/22/17 TTE with LVEF 55-60%, indeterminate diastolic function, normal right ventricular structure and function, severely dilated left atrium, moderate mitral regurgitation, mild tricuspid regurgitation, mild pulmonary hypertension. Continuing to have C/o exertional shortness of breath and feels tired most likely secondary to A. fib. Patient is now on eliquis and Cardizem as well as Cozaar Remain on telemetry, continue to closely monitor hemodynamic status. The patient is medically stable was offered to discharge home today however, she refused stating that she does not feel like she is back to her baseline. Continue to monitor for one more night and consider discharge in the morning (2) UTI (urinary tract infection) Current Visit: Yes Status: Resolved Assessment and plan: History of recent UTI. UA on admission shows moderate leukocyte Estrace suspicious for UTI, however she has no leukocytosis and has remained afebrile. Likely asymptomatic bacteriuria Follow-up of urine cultures reveals preliminary no growth Qualifiers: Urinary tract infection type: acute cystitis Hematuria presence: without hematuria Qualified Code(s): N30.00 - Acute cystitis without hematuria (3) Hypokalemia Current Visit: Yes Status: Chronic Assessment and plan: Resolved. (4) Parkinsonian features Current Visit: Yes Status: Acute Assessment and plan: Continue Parkinson medication (5) Hypertension Current Visit: Yes Status: Acute Assessment and plan: History of HTN, BP has remained stable, Currently on Cozaar and HCTZ, continue Qualifiers: Hypertension type: essential hypertension Qualified Code(s): I10 - Essential (primary) hypertension (6) DVT prophylaxis Current Visit: Yes Status: Acute Assessment and plan: Patient on eliquis, encouraged to increase activity - Time Spent With Patient Total time spent is greater than 50% in coordination of care (as documented) at patient's floor/unit and/or counseling patient: 25 - 35 minutes - Subjective Interval history: Patient seen and examined at bedside today, presented with palpitations, exertional dyspnea and weakness. Patient reports she is continuing to feel weak but denies any palpitations today. Additionally, she is reporting that she is mildly short of breath with activity. She does not appear to be short of breath during my assessment this morning. Also of note her dizziness has subsided. She is positive for UTI but denies any urinary symptoms and/or flank pain. - Constitutional Vitals: Temp Pulse Resp BP Pulse Ox 98.1 F 87 18 155/91 96 10/24/17 14:42 10/24/17 14:42 10/24/17 14:42 10/24/17 15:16 10/24/17 14:42 General appearance: Present: A&O X 3, pleasant, no acute distress, answers questions appropriately - Head Head exam: Present: atraumatic, normocephalic - Eye Eye exam: Present: PERRL, conjuntiva pink, sclera anicteric Pupils: Present: PERRL - Neck Neck exam general surgery: Present: supple, trachea midline. Absent: lymphadenopathy - Respiratory Respiratory exam: Present: CTAB. Absent: accessory muscle use, rales, rhonchi, wheezes - Cardiovascular Cardiovascular exam: Present: RRR, +S1, +S2. Absent: diastolic murmur, gallop, rubs, systolic murmur - GI/Abdominal GI/Abdominal exam: Present: normal bowel sounds, soft, no peritoneal signs. Absent: distended, tenderness - Extremities Exam Extremities exam: Present: warm, radial pulses palpable and symmetrical. Absent : calf tenderness, cyanotic, pedal edema - Back Exam Back exam: Absent: CVA tenderness (L), CVA tenderness (R) - Neurological Exam Neurological exam: Present: CN II-XII intact, oriented X3, no focal deficits. Absent: pronater drift, facial droop, speech deficit - Skin Skin exam: Present: dry, intact Internal Medicine: Result - Labs CBC & Chem 7: 10/23/17 08:13 10/24/17 04:54 Labs: BMP 10/24/17 04:54 Potassium 3.6 - ABG Interpretation ABG results: PT/INR, D-dimer PT 12.0 Seconds (9.4-12.1) 10/21/17 18:06 Consult Discharge Plan - Plan Referrals: Danette Real, VALERIANO [Primary Care Provider] -
[2017-10-24] MEDS: Gabapentin 300 MG CAPSULE PO SCH (20:51)
[2017-10-24] MEDS ORDERED: Ondansetron 4 MG/2 ML VIAL IVP PRN (21:28)
[2017-10-24] MEDS: Acetaminophen 325 MG TABLET PO PRN (22:29)
[2017-10-25 06:34] LABS: Hematocrit 38.9 % (35.3-44.9); Hemoglobin 13.1 g/dL (11.5-15.4); Mean Corpuscular HGB Conc 33.7 g/dL (31.6-35.5); Mean Corpuscular Hemoglobin 28.6 pg (28.0-33.3); Mean Corpuscular Volume 84.9 fL (83.0-100.0); Mean Platelet Volume 9.7 fL (9.4-12.4); Platelet Count 302 K/mcL (140-400); Red Blood Count 4.58 M/mcL (3.82-4.97); Red Cell Distribution Width 14.6 % (11.5-14.5)
[2017-10-25 06:52] LABS: Calcium 9.7 mg/dL (8.6-10.3); Potassium 4.1 mEq/L (3.5-5.1)
[2017-10-25] MEDS ORDERED: *HR* Metoprolol 5 MG/5 ML VIAL IVP ONE (07:13)
--- NOTE | 2017-10-25 07:34 | Event Note ---
Date of Encounter: 10/25/17 Time of Encounter: 06:58 Upon arrival to the unit today I was notified that the patient was having respiratory distress with hypoxia as well as tachycardia. Per my assessment the patient's heart rate was irregularly irregular and tachycardic with heart rate of 160. The patient appeared to be in respiratory distress and was tachypneic and having accessory muscle usage. Per auscultation her lungs revealed clear/diminished breath sounds, no wheezing or stridor noted. The patient was placed on oxygen mask at 6 L and vital signs were obtained and she was found to be hemodynamically stable, hypoxia improved with 6 L oxygen mask. EKG was ordered, EKG reveals atrial flutter with tachycardic rate of 160. Vitals were again checked, patient remained stable hemodynamically and was given 5 mg IV push Lopressor. After 2 minute Lopressor IV push patient's heart rate improved to rate of 90s, respiratory distress improved however she does continue continue to have some accessory muscle usage but appears to be improving from initial presentation. Continue to monitor closely, every 15 minute vitals, consider transfer to higher acuity floor if no short-term improvement. CXR ordered for further evaluation. Xopenex breathing treatments ordered every 6 hours. Throughout this time the patient has had no neurological deficits. It should be noted that the patient is here for new onset atrial fibrillation. She is currently on Coreg twice a day, Cardizem and eliquis.
[2017-10-25] MEDS ORDERED: cefTRIAXone 2,000 MG in 0.9 % Sodium Chloride Mini Bag 100 ML IVPB ONE (07:41)
[2017-10-25] MEDS ORDERED: 0.9 % Sodium Chloride 1,000 ML IVC SCH ×2 (07:45→13:15)
--- NOTE | 2017-10-25 07:46 | Internal Med Progress Note ---
<Rafael Lane - Last Filed: 10/25/17 17:22> Date of Encounter: 10/25/17 Time of Encounter: 07:46 - Assessment and plan (1) Sepsis Current Visit: Yes Status: Acute Assessment and plan: Patient originally admitted for UTI and new diagnosis of A. fib. Has been stable throughout the stay until this morning. Patient began to have respiratory distress, hypoxia, tachycardia. Chest x-ray shows pulmonary congestion concerning for ARDS and PNA. Meeting sepsis criteria with tachycardia, leukocytosis, hypoxia, elevated lactate. 1 L fluid bolus was given , broad-spectrum antibiotics given, lactate drawn, repeat lactate order in. Patient was on room air overnight but is now requiring high flow oxygen for respiratory support. Continues to have dyspnea and accessory muscle usage, placing patient on the BiPAP for noninvasive ventilation. Chest x-ray on admission did not show pneumonia and she was not being treated for this. Repeat lactate Continuous telemetry Continuous O2 support with BiPAP, goal to titrate to nasal cannula as tolerated 18 SPO2 greater than 92% Xopenex every 6 hours scheduled Patient has received 1 dose of vancomycin, continue Levaquin and Zosyn Obtain sputum cultures, strep pneumococcal antigen and Legionella antigen- follow results Tylenol for fevers Continue DVT prophylaxis therapy Patient is being transferred to stepdown unit for closer monitoring Family notified and on their way 40 mg IVP Lasix 1 and 20 mg IV push twice a day Continue to monitor hemodynamic status closely Continue treating sepsis 1.Acute hypoxic resp failure 3. b/l HCAP - mostly bacterial 4. Septic shock patient in ICU, critial care time 45 minutes Qualifiers: Qualified Code(s): A41.9 - Sepsis, unspecified organism (2) ARDS (adult respiratory distress syndrome) Current Visit: Yes Status: Acute Assessment and plan: See plan above (3) New onset a-fib Current Visit: Yes Status: Acute Assessment and plan: 2-week history of shortness of breath, palpitations and weakness/fatigue Secondary to New Onset of A. fib. However, A. fib likely chronic with TTE revealing moderately dilated left atrium Continue to have no acute events overnight. Average pulse rate in the 70s - 10/22/17 TTE with LVEF 55-60%, indeterminate diastolic function, normal right ventricular structure and function, severely dilated left atrium, moderate mitral regurgitation, mild tricuspid regurgitation, mild pulmonary hypertension. Patient dyspneic this morning, now on oxygen mask. Found to be in A. fib/ flutter this morning her ECG with respiratory distress. Was given IV metoprolol 5 mg heart rate improved, Restoril status improving continues to be on oxygen mask. Patient is on eliquis and Cardizem as well as Cozaar; cardiology consult for possible medication dosage adjustment. Remain on telemetry, continue to closely monitor hemodynamic status. I expected the patient discharged yesterday however, she refused stating that she does not feel like she is back to her baseline. at that time she was not having any tachycardia, fevers or urinary symptoms. She was also reporting mild shortness of breath with ambulation. Continuous telemetry (4) UTI (urinary tract infection) Current Visit: Yes Status: Resolved Assessment and plan: History of recent UTI. UA on admission shows moderate leukocyte Estrace suspicious for UTI. The patient is expected discharge yesterday with no leukocytosis and the fact that she remained afebrile. It appears that UTI had resolved. However, this morning the patient's white count is now 23.9, and she is tachycardic. This could be because the UTI did not resolve with the patient has developed pneumonia since admission. Unclear at this time. Continue to monitor. Levaquin IVpb 750 mg now then daily lactic acid now IVF Tylenol for fevers antiemetics PRN for nausea Closely monitor for s/sx of sepsis resend urine for culture UA now consider transfer to level of higher acuity Qualifiers: Urinary tract infection type: acute cystitis Hematuria presence: without hematuria Qualified Code(s): N30.00 - Acute cystitis without hematuria (5) Hypokalemia Current Visit: Yes Status: Chronic Assessment and plan: Hypokalemia has resolved, continue to monitor (6) Parkinsonian features Current Visit: Yes Status: Acute Assessment and plan: Continue Parkinson medication, adjust medications as necessary (7) Hypertension Current Visit: Yes Status: Acute Assessment and plan: History of HTN, BP continues to remain stable, Currently on Cozaar and HCTZ, continue these medications and adjust as necessary Qualifiers: Hypertension type: essential hypertension Qualified Code(s): I10 - Essential (primary) hypertension (8) Septic shock Current Visit: Yes Status: Acute (9) Acute hypoxemic respiratory failure Current Visit: Yes Status: Acute (10) DVT prophylaxis Current Visit: Yes Status: Acute Assessment and plan: Continue eliquis, encouraged to increase activity (11) HCAP (healthcare-associated pneumonia) Current Visit: Yes Status: Acute - Time Spent With Patient Total time spent is greater than 50% in coordination of care (as documented) at patient's floor/unit and/or counseling patient: 25 - 35 minutes - Subjective Interval history: Patient initially presented for palpitations, exertional dyspnea and weakness. Found to have new atrial fibrillation and UTI. Received IV antibiotics and appeared to be improving. ABX were stopped with improvement and no leukocytosis. Seen and examined at bedside today. Nurses were concerned d/t respiratory distress, and tachycardia. Patient reporting that she feels short of breath, weak and fatigued. Accessory muscle usage upon assessment, as well as hypoxia. ECG obtained and found her to be in afib/flutter with RVR. Patient improved with O2 support and IV metoprolol. Continues to have dysnea but improving with o2 mask. HR now in the 90's a-fib, No dizziness, reported just dyspnea and weakness. This is a change in condition as the patient appeared to be clinically stable and I was expecting discharge. - Constitutional Vitals: Temp Pulse Resp BP Pulse Ox 98.2 F 128 18 119/83 94 10/25/17 07:16 10/25/17 07:16 10/25/17 07:16 10/25/17 07:16 10/25/17 07:16 General appearance: Present: A&O X 3, pleasant, no acute distress, answers questions appropriately - Head Head exam: Present: atraumatic, normocephalic - Eye Eye exam: Present: PERRL, conjuntiva pink, sclera anicteric Pupils: Present: PERRL - Neck Neck exam general surgery: Present: supple, trachea midline. Absent: lymphadenopathy - Respiratory Respiratory exam: Present: accessory muscle use, CTAB, respiratory distress, tachypnea. Absent: chest wall tenderness, decreased breath sounds, prolonged expiratory phase, rales, rhonchi, stridor, wheezes - Cardiovascular Cardiovascular exam: Present: irregular rhythm, tachycardia (on initial assessment). Absent: diastolic murmur, gallop, rubs, systolic murmur - GI/Abdominal GI/Abdominal exam: Present: normal bowel sounds, soft, no peritoneal signs. Absent: distended, tenderness - Extremities Exam Extremities exam: Present: warm, radial pulses palpable and symmetrical. Absent : calf tenderness, cyanotic, pedal edema - Neurological Exam Neurological exam: Present: CN II-XII intact, oriented X3, no focal deficits. Absent: pronater drift, facial droop, speech deficit - Skin Skin exam: Present: dry, intact Internal Medicine: Result - Labs CBC & Chem 7: 10/25/17 06:20 10/25/17 06:20 Labs: Short CBC 10/25/17 Range/Units 06:20 WBC 23.9 H D (4.3-11.1) K/mcL Hgb 13.1 (11.5-15.4) g/dL Hct 38.9 (35.3-44.9) % Plt Count 302 (140-400) K/mcL BMP 10/25/17 10/25/17 06:20 06:20 Sodium 138 Potassium 4.1 4.1 Chloride 103 Carbon Dioxide 25 BUN 21 Creatinine 1.17 Glucose 120 H Calcium 9.7 Cardiac Enzymes 10/24/17 Range/Units 21:50 Troponin I < 0.03 (< 0.04) ng/mL - ABG Interpretation ABG results: PT/INR, D-dimer PT 12.0 Seconds (9.4-12.1) 10/21/17 18:06 Consult Discharge Plan - Plan Referrals: Elbert Cody INSTRUCTIONAL DESIGN TECHNOLOGIST [Advanced Practice Nurse] - (office will call patient with follow up appointment at home) Danette Real CNP [Primary Care Provider] - (Patient will have to call and make their own appointment per [facility] office) <Roshni Jackson - Last Filed: 10/27/17 07:50> Date of Encounter: 10/25/17 - Assessment and plan (1) Hypokalemia Current Visit: Yes Status: Chronic (2) DVT prophylaxis Current Visit: Yes Status: Acute (3) Parkinsonian features Current Visit: Yes Status: Acute (4) New onset a-fib Current Visit: Yes Status: Acute (5) Hypertension Current Visit: Yes Status: Acute Qualifiers: Hypertension type: essential hypertension Qualified Code(s): I10 - Essential (primary) hypertension (6) UTI (urinary tract infection) Current Visit: Yes Status: Resolved Qualifiers: Urinary tract infection type: acute cystitis Hematuria presence: without hematuria Qualified Code(s): N30.00 - Acute cystitis without hematuria (7) ARDS (adult respiratory distress syndrome) Current Visit: Yes Status: Acute (8) Sepsis Current Visit: Yes Status: Acute Qualifiers: Qualified Code(s): A41.9 - Sepsis, unspecified organism (9) Acute hypoxemic respiratory failure Current Visit: Yes Status: Acute (10) Septic shock Current Visit: Yes Status: Acute (11) HCAP (healthcare-associated pneumonia) Current Visit: Yes Status: Acute - Time Spent With Patient Total time spent is greater than 50% in coordination of care (as documented) at patient's floor/unit and/or counseling patient: - Constitutional Vitals: Temp Pulse Resp BP Pulse Ox 98.0 F 101 18 113/60 95 10/27/17 07:08 10/27/17 07:08 10/27/17 07:08 10/27/17 07:08 10/27/17 07:08 Internal Medicine: Result - Labs CBC & Chem 7: 10/27/17 04:00 10/27/17 04:00 Labs: Short CBC 10/27/17 Range/Units 04:00 WBC 11.5 H (4.3-11.1) K/mcL Hgb 9.7 L (11.5-15.4) g/dL Hct 28.4 L (35.3-44.9) % Plt Count 247 (140-400) K/mcL BMP 10/27/17 04:00 Sodium 136 Potassium 3.2 L Chloride 105 Carbon Dioxide 26 BUN 23 Creatinine 0.85 Glucose 112 H Calcium 9.0 - ABG Interpretation ABG results: ABG ABG pH 7.39 pH Units (7.32-7.45) 10/25/17 12:42 ABG pCO2 39 mmHg (35-45) 10/25/17 12:42 ABG pO2 65 mmHg (85-104) L 10/25/17 12:42 ABG O2 Saturation 92 % (95-98) L 10/25/17 12:42 PT/INR, D-dimer PT 12.0 Seconds (9.4-12.1) 10/21/17 18:06 - Attending Attestation I have personally performed a face to face evaluation on this patient. I have reviewed and agree with the care plan provided by SKYLAR Lane. History and Exam by me shows:
[2017-10-25] MEDS ORDERED: 0.9 % Sodium Chloride 1,000 ML IVC ONE (08:09)
[2017-10-25] MEDS ORDERED: Levofloxacin 750 MG/150 ML 750 MG/150 ML BAG IVPB SCH (09:00)
[2017-10-25] MEDS ORDERED: Furosemide 40 MG/4 ML VIAL IVP ONE (09:10)
[2017-10-25] MEDS: Diltiazem CD (24hr) 120 MG CAPSULE PO SCH (09:52)
[2017-10-25] MEDS: Aspirin Enteric Coated 81 MG Tablet PO SCH (09:53)
[2017-10-25] MEDS: Perphenazine 2 MG TABLET PO SCH ×2 (09:53→22:04)
[2017-10-25] MEDS: Apixaban 5 MG TABLET PO SCH ×2 (09:53→22:04)
[2017-10-25] MEDS: Ibuprofen 800 MG TABLET PO SCH (09:56)
[2017-10-25] MEDS ORDERED: 0.9 % Sodium Chloride 500 ML IVC ONE (11:19)
[2017-10-25] MEDS: Levalbuterol Neb 1.25 MG/3 ML IH SCH ×4 (11:36→21:29)
[2017-10-25] MEDS: Piperacillin/Tazobactam 3.375 GM in 0.9 % Sodium Chloride Mini Bag 100 ML IVPB SCH ×3 (11:43→23:23)
[2017-10-25 12:48] LABS: ABG Base Excess -2 mEq/L (-2 to 3); ABG HCO3 23 mEq/L (21-27); ABG Oxygen Saturation 92 % (95-98); ABG PCO2 39 mmHg (35-45); ABG PH 7.39 pH Units (7.32-7.45); ABG PO2 65 mmHg (85-104); ABG TCO2 25 mEq/L (20-26); Blood Gas Modality BiLevel; Blood Gas PEEP 6 cm H2O; Blood Gas Pressure Support 12 cm H2O
--- NOTE | 2017-10-25 13:09 | Event Note ---
Date of Encounter: 10/25/17 Time of Encounter: 12:58 Ms. Robbins is a 87 year old female present to ER for weakness and shaking for about 10 days. Past medical history is significant for hypertension, Parkinson disease. Pt was admitted here for UTI and new onset Afib. Pt was treated with empirical abx. Since y/d pt has been c/o SOB and this morning she became more dyspneic and went into acute hypoxic resp failure. Her CXR showed b/l infiltrates and inc vascular congestion. She did develop fever with T max - 101.5. Pt was under my BREAKER HAND Rafael Glez's care till now. Pt was placed on BiPAP. and transferred to for further close monitoring and critical care. Gen:A,A, O xto self.. slightly confused Chest: Diminished BS b/l, rales + ronchi +, mild wheezing + Heart: S1S2+ Irregular rate and rythm Abd: Soft, NT, BS+ Ext: No edema..Pulses + a/p 1. Severe sepsis 2. Acute hypoxic resp failure 3. b/l HCAP - mostly bacterial 4. Septic shock Gave her IV NS bolus 500cc x 2 so far BP is now in 80's with MAP @ 55 Pt is resting comfortably on BiPAP will get blood cx, and repeat LA now will obtain ABG sarted on broad spec abx Zosyn, Levaquin and Vancomycin Due to her heart condition unable to give her excessive fluids, so spoke to snowblower mechanic for possible ICU transfer to initiate vasopressors. Talked to pt's family at bed side and explained to them about current care Pt and family requested for DNR/DNI, however they would like to try vasopressors if she needs So will transfer the pt to ICU for further critical care I spent 45 minutes critical care time on this pt.
[2017-10-25] MEDS: Phenylephrine 10 MG in D5% in Water 250 ML IVC SCH ×2 (14:10→18:30)
--- NOTE | 2017-10-25 14:15 | Pulmonology Consult Note ---
<Lito Gray W - Last Filed: 10/25/17 14:15> Date of Encounter: 10/25/17 Medications and Allergies Calcium Carbonate/Vitamin D3 [Calcium 600 + D Tablet] 1 each PO DAILY 01/30/15 [ History] Diltiazem CD (24hr) [Cardizem CD] 240 mg PO QAM 01/30/15 [History] Gabapentin [Neurontin] 600 mg PO HS 01/30/15 [History] Omeprazole [PriLOSEC] 20 mg PO DAILY 01/30/15 [History] Cholecalciferol (Vitamin D3) [Vitamin D3] 1,000 unit PO DAILY 07/20/15 [History] Multivit-Min/FA/Lycopen/Lutein [Centrum Silver Tablet] 1 each PO DAILY 07/20/15 [History] Trihexyphenidyl [Artane] 1 mg PO TID 07/20/15 [History] Amitriptyline [Elavil] 25 mg PO BID 10/21/17 [History] Aspirin [Lo-Dose Aspirin EC] 81 mg PO DAILY 10/21/17 [History] Ibuprofen [Motrin] 800 mg PO DAILY 10/21/17 [History] Lactobacillus Acidophilus [Acidophilus Probiotic] 1 mg PO DAILY 10/21/17 [ History] Levothyroxine Sodium [Levoxyl] 75 mcg PO DAILY 10/21/17 [History] Losartan [Cozaar] 50 mg PO QPM 10/21/17 [History] Perphenazine 4 mg PO BID 10/21/17 [History] Wheat Dextrin [Benefiber] 1 each PO DAILY 10/21/17 [History] hydroCHLOROthiazide [Hydrochlorothiazide] 25 mg PO DAILY PRN 10/21/17 [History] 3 Allergy/AdvReac Type Severity Reaction Status Date / Time codeine Allergy unsure Verified 03/14/17 13:17 Sulfa (Sulfonamide Allergy Vomiting Verified 03/14/17 13:17 Antibiotics) All Systems: The remainder of the systems were reviewed and are negative Physical Examination Vital Signs: Vital Signs, Last 4 Hours Temp Pulse Resp BP Pulse Ox 10/25/17 13:06 83 88/51 10/25/17 12:45 97 80/52 10/25/17 12:43 83 77/46 10/25/17 12:30 87 72/45 10/25/17 12:27 86 76/42 10/25/17 12:15 86 62/42 10/25/17 12:05 101.5 F H 89 30 71/43 90 10/25/17 12:04 91 71/43 10/25/17 12:00 97 65/52 10/25/17 11:58 97 67/43 10/25/17 11:48 105 68/45 10/25/17 11:45 100 72/43 10/25/17 11:41 107 74/44 10/25/17 11:36 28 94 10/25/17 11:15 141 18 72/38 93 Results - Laboratory Findings CBC and BMP: 10/25/17 06:20 10/25/17 06:20 ABG ABG pH 7.39 pH Units (7.32-7.45) 10/25/17 12:42 ABG pCO2 39 mmHg (35-45) 10/25/17 12:42 ABG pO2 65 mmHg (85-104) L 10/25/17 12:42 ABG O2 Saturation 92 % (95-98) L 10/25/17 12:42 PT/INR, D-dimer PT 12.0 Seconds (9.4-12.1) 10/21/17 18:06 Abnormal lab findings: Abnormal lab results WBC 23.9 K/mcL (4.3-11.1) H D 10/25/17 06:20 RDW 14.6 % (11.5-14.5) H 10/25/17 06:20 Eosinophils # 0.7 K/mcL (0.0-0.6) H 10/22/17 05:09 APTT 64.5 Seconds (26.0-36.0) H 10/23/17 10:49 ABG pO2 65 mmHg (85-104) L 10/25/17 12:42 ABG O2 Saturation 92 % (95-98) L 10/25/17 12:42 Est GFR ( Amer) 53 (> 60) L 10/25/17 06:20 Est GFR (Non-Af Amer) 44 (> 60) L 10/25/17 06:20 Glucose 120 mg/dL (70-105) H 10/25/17 06:20 Lactic Acid 2.4 mmol/L (0.5-2.2) H 10/25/17 13:27 Total T3 0.63 ng/mL (0.87-1.78) L 10/22/17 05:09 Ur Leukocyte Esterase Moderate (Negative) H 10/21/17 15:17 Urine Microscopic WBC 5-15 per hpf (0-3) H 10/21/17 15:17 Ur Squamous Epith Cells Moderate per lpf (None-Few) H 10/21/17 15:17 Ur Culture Indicated? YES (NO) A 10/21/17 15:17 - Microbiology Findings Microbiology Findings: Microbiology, Last 48 Hours 10/25/17 10:50 Legionella Antigen - Final Urine,Catheterized Streptococcus pneumoniae Antigen (M - Final - Clinical Findings Intake & Output: Intake & Output 10/24/17 10/25/17 10/25/17 23:59 07:59 15:59 Intake Total 400 / 400 750 / 750 Output Total 350 / 350 Balance 400 / 400 400 / 400 Weight 64.3 kg 65.6 kg Consult Discharge Plan - Plan Referrals: Elbert Cody CNP [Advanced Practice Nurse] - (office will call patient with follow up appointment at home) Danette Real CNP [Primary Care Provider] - (Patient will have to call and make their own appointment per [facility] Medical office) - Attending Attestation I examined this patient and my medical decision-making was reviewed with the Resident Physician. I agree with the documented findings, disposition and treatment plan as described except to the extent set forth below. We independently had [id number] contact with the patient I spent 32min of Critical Care time with this patient. It involved decision making of high complexity to assess, manipulate, and support vital organ system failure and/or to prevent further life threatening deterioration of the patient' s condition. The time involved in the performance of separately reportable procedures was not counted toward critical care time. Patient seen and examined at bedside Labs, radiology, chart personally reviewed. SENIOR SALES OPERATIONS ANALYST: The patient is awake and alert there is no focal neurological deficits. She is lethargic at times however easily arousable. High risk for delirium we will continue to monitor closely and avoid SENIOR SALES OPERATIONS ANALYST depressant medications and sensory deprivation Pulm: Acute hypoxic respiratory failure secondary to hydrostatic pulmonary edema possible component of pneumonia on noninvasive ventilation clinically tenuous high risk for decompensation further to endotracheal intubation. In the acutely septic picture would hold off on aggressive diuresis but I suspect that as were able to diurese that would benefit her respiratory status greatly. Check x-ray is notable for CHF Cards: Patient presenting with cardiogenic shock complicated by acute sepsis with atrial fibrillation with rapid ventricular response will need to transfer to ICU for vasopressor administration. I reviewed her echocardiogram which is notable for heart failure preserved ejection fraction with moderate mitral regurgitation and severely dilated left atrium. There is clear evidence of volume overload on examination. We will use phenylephrine to support mean arterial blood pressure to around map of 60-65 and will begin diuresing was hemodynamically more stable. Lactate elevated at 2.8 and we will trend this FEN-GI: Nothing by mouth for now Renal: Urine output monitored her urine output has been sluggish and has been a slight increase in her creatinine although does not make criteria for acute kidney injury we will have to monitor this closely along with monitoring of her electrolytes daily ID: Severe sepsis likely secondary to pneumonia possible UTI with resistant organism patient was admitted with concern for a urinary tract infection and been treated with a cephalosporin now with new white counts and in clinical context she is at high risk for hospital-acquired pneumonia we will cover for both MRSA and pseudomonal infections blood cultures have been obtained along with urine cultures sputum culture as were able to collect Heme/Onc: The patient is on Eliquis for stroke prevention with atrial fibrillation. This will be held acutely for critical illness and we will start DVT prophylaxis with heparin tomorrow. No overt evidence of hemorrhage Endo: Glucose Monitored Integ/MSK: Skin Care per routine ICU Nursing Protocol to prevent ulcers. Lines: All lines examined without evidence of infection : Dispo: Remain in ICU for critical illness CODE: DNAR I had a obdulia conversation with the patient and her family at bedside in the stepdown unit and explained that she has become critically ill and has a high risk of progression to eating endotracheal intubation. Patient is agreeable for intubation on a short-term basis but does not want CPR in the event of cardiac arrest. <Shantell Lara - Last Filed: 10/25/17 16:20> Date of Encounter: 10/25/17 Time of Encounter: 14:15 Assessment and Plan (1) Sepsis Current Visit: Yes Status: Acute Severe Sepsis likely secondary to pneumonia SIRS 3: tachycardia 105, temperature 101.5, WBC 23.9 lactic acid 2.4 (2.8) BP 62/42 10/25/2017 CXR personally examined and demonstrates bilateral pleural effusions and possible pneumonia -the patient has hypoxic respiratory failure with bilateral pleural effusions so the standard 30ml/kg IVF is not going to be administered since it will worsen the patient's respiratory failure -right femoral central line placed 10/25/2017 Plan -continue Zosyn -continue vancomycin -stop Levaquin -blood culture pending -urine culture pending -requiring pressor support with phenylephrine -albumin ordered Qualifiers: Qualified Code(s): A41.9 - Sepsis, unspecified organism (2) Acute hypoxemic respiratory failure Current Visit: Yes Status: Acute The patient developed Acute hypoxemic respiratory failure likely secondary to pneumonia and pulmonary edema chest x-ray demonstrated CHF Currently on BiPAP saturating well -Continue BiPAP but, may later require intubation should she desaturate again -repeat chest x-ray and a.m. -will be conservative with IV fluids (3) New onset a-fib Current Visit: Yes Status: Acute New onset atrial fibrillation, seen and examined by cardiology who have started Eliquis and Cardizem. -Continue eliquis -hold Cardizem due to hypotension (4) Pneumonia Current Visit: Yes Status: Acute Concerned for hospital acquired pneumonia due to new onset acute hypoxic respiratory failure and severe sepsis chest x-ray demonstrating CHF -management as above Qualifiers: Pneumonia type: due to unspecified organism Laterality: unspecified laterality Lung location: unspecified part of lung Qualified Code(s): J18.9 - Pneumonia, unspecified organism (5) UTI (urinary tract infection) Current Visit: Yes Status: Resolved Patient being treated for a UTI. U/A suspicious with leukoctyes esterase. -repeat urine culture sent -abx as above Qualifiers: Urinary tract infection type: acute cystitis Hematuria presence: without hematuria Qualified Code(s): N30.00 - Acute cystitis without hematuria (6) Parkinsonian features Current Visit: Yes Status: Acute Family reports history of Parkinson's (7) DVT prophylaxis Current Visit: Yes Status: Acute on eliquis History of Present Illness Consult date: 10/25/17 Requesting physician: Roshni Jackson Reason for consult: other (Septic shock) Chief complaint: Weakness History of present illness: 87-year-old female with past medical history of Parkinson's, hypertension, hypothyroidism who presented to [facility] from her PCP's office with new onset A.fib. For the past 10 days she had increased weakness. EKG in ED confirmed atrial fibrillation and urinalysis demonstrated urinary tract infection. She was admitted for new onset atrial fibrillation and UTI. Cardiology evaluated her and start her on eliquis and Cardizem. During her admission she continued to improve however, today she developed acute respiratory hypoxic respiratory failure requiring BiPAP. She was also noted to be in septic shock with tachycardia, fever of 101.5, WBC 23.9. Past Med Surg Social Fam HX - Past Medical History Medical history: arthritis, DVT, hypertension, thyroid disease, other Psychiatric history: anxiety - Past Surgical History Surgical History: cataract, cholecystectomy, hysterectomy - Social History Smoking Status: Never smoker Smokeless Tobacco Status: No Alcohol use: none Drug use: none - Family History Mother Hx Family Endocrine Disorder: Yes (DIABETES MELLITUS.) All Systems: The remainder of the systems were reviewed and are negative Physical Examination Vital Signs: Vital Signs, Last 4 Hours Temp Pulse Resp BP Pulse Ox 10/25/17 13:06 83 88/51 10/25/17 12:45 97 80/52 10/25/17 12:43 83 77/46 10/25/17 12:30 87 72/45 10/25/17 12:27 86 76/42 10/25/17 12:15 86 62/42 10/25/17 12:05 101.5 F H 89 30 71/43 90 10/25/17 12:04 91 71/43 10/25/17 12:00 97 65/52 10/25/17 11:58 97 67/43 10/25/17 11:48 105 68/45 10/25/17 11:45 100 72/43 10/25/17 11:41 107 74/44 10/25/17 11:36 28 94 10/25/17 11:15 141 18 72/38 93 Results - Laboratory Findings CBC and BMP: 10/25/17 06:20 10/25/17 06:20 ABG ABG pH 7.39 pH Units (7.32-7.45) 10/25/17 12:42 ABG pCO2 39 mmHg (35-45) 10/25/17 12:42 ABG pO2 65 mmHg (85-104) L 10/25/17 12:42 ABG O2 Saturation 92 % (95-98) L 10/25/17 12:42 PT/INR, D-dimer PT 12.0 Seconds (9.4-12.1) 10/21/17 18:06 Abnormal lab findings: Abnormal lab results WBC 23.9 K/mcL (4.3-11.1) H D 10/25/17 06:20 RDW 14.6 % (11.5-14.5) H 10/25/17 06:20 Eosinophils # 0.7 K/mcL (0.0-0.6) H 10/22/17 05:09 APTT 64.5 Seconds (26.0-36.0) H 10/23/17 10:49 ABG pO2 65 mmHg (85-104) L 10/25/17 12:42 ABG O2 Saturation 92 % (95-98) L 10/25/17 12:42 Est GFR ( Amer) 53 (> 60) L 10/25/17 06:20 Est GFR (Non-Af Amer) 44 (> 60) L 10/25/17 06:20 Glucose 120 mg/dL (70-105) H 10/25/17 06:20 Lactic Acid 2.4 mmol/L (0.5-2.2) H 10/25/17 13:27 Total T3 0.63 ng/mL (0.87-1.78) L 10/22/17 05:09 Ur Leukocyte Esterase Moderate (Negative) H 10/21/17 15:17 Urine Microscopic WBC 5-15 per hpf (0-3) H 10/21/17 15:17 Ur Squamous Epith Cells Moderate per lpf (None-Few) H 10/21/17 15:17 Ur Culture Indicated? YES (NO) A 10/21/17 15:17 - Microbiology Findings Microbiology Findings: Microbiology, Last 48 Hours 10/25/17 10:50 Legionella Antigen - Final Urine,Catheterized Streptococcus pneumoniae Antigen (M - Final - Clinical Findings Intake & Output: Intake & Output 10/24/17 10/25/17 10/25/17 23:59 07:59 15:59 Intake Total 400 / 400 750 / 750 Output Total 350 / 350 Balance 400 / 400 400 / 400 Weight 64.3 kg 65.6 kg
[2017-10-25] MEDS ORDERED: Furosemide 20 MG/2 ML VIAL IVP SCH (17:00)
--- NOTE | 2017-10-25 23:30 | Electrocardiograph Report ---
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
[2017-10-25 23:40] LABS: Hematocrit 30.5 % (35.3-44.9); Mean Corpuscular HGB Conc 33.8 g/dL (31.6-35.5); Mean Corpuscular Hemoglobin 29.1 pg (28.0-33.3); Mean Corpuscular Volume 86.2 fL (83.0-100.0); Mean Platelet Volume 9.8 fL (9.4-12.4); Platelet Count 264 K/mcL (140-400); Red Blood Count 3.54 M/mcL (3.82-4.97)
[2017-10-25 23:41] LABS: Hemoglobin 10.3 g/dL (11.5-15.4)
[2017-10-25 23:59] LABS: Calcium 8.3 mg/dL (8.6-10.3); Eosinophils # 0.5 K/mcL (0.0-0.6); Lymphocytes # 1.9 K/mcL (0.6-4.6); Monocytes # 1.4 K/mcL (0.0-1.3); Neutrophils # 19.9 K/mcL (1.6-8.9); Platelet Estimate Normal (Normal); Potassium 3.7 mEq/L (3.5-5.1)
[2017-10-26] MEDS: Levalbuterol Neb 1.25 MG/3 ML IH SCH ×4 (03:34→22:54)
[2017-10-26 04:11] LABS: Hematocrit 29.8 % (35.3-44.9); Hemoglobin 9.9 g/dL (11.5-15.4); Mean Corpuscular HGB Conc 33.2 g/dL (31.6-35.5); Mean Corpuscular Hemoglobin 28.8 pg (28.0-33.3); Mean Corpuscular Volume 86.6 fL (83.0-100.0); Mean Platelet Volume 9.8 fL (9.4-12.4); Platelet Count 247 K/mcL (140-400); Red Blood Count 3.44 M/mcL (3.82-4.97); Red Cell Distribution Width 15.3 % (11.5-14.5)
[2017-10-26 04:31] LABS: Calcium 8.1 mg/dL (8.6-10.3); Potassium 3.7 mEq/L (3.5-5.1)
[2017-10-26] MEDS: Perphenazine 2 MG TABLET PO SCH ×2 (07:29→21:16)
[2017-10-26] MEDS: Apixaban 5 MG TABLET PO SCH (07:30)
[2017-10-26] MEDS: Aspirin Enteric Coated 81 MG Tablet PO SCH (07:30)
[2017-10-26] MEDS: Ibuprofen 800 MG TABLET PO SCH ×2 (07:30→10:08)
[2017-10-26] MEDS ORDERED: cefTRIAXone 1,000 MG in 0.9 % Sodium Chloride Mini Bag 100 ML IVPB SCH (08:00)
--- NOTE | 2017-10-26 08:13 | Pulmonology Progress Note ---
<Shantell Lara - Last Filed: 10/26/17 09:32> Date of Encounter: 10/26/17 Time of Encounter: 08:13 Assessment and Plan (1) Sepsis Current Visit: Yes Status: Acute Severe Sepsis likely secondary to pneumonia SIRS 3: tachycardia 105, temperature 101.5, WBC 23.9 lactic acid 2.4 (2.8) BP 110/56 10/25/2017 CXR personally examined and demonstrates bilateral pleural effusions and possible pneumonia -the patient has hypoxic respiratory failure with bilateral pleural effusions so the standard 30ml/kg IVF is not going to be administered since it will worsen the patient's respiratory failure -right femoral central line placed 10/25/2017 Plan -continue Zosyn day 2 -continue vancomycin day 2 -no longer requiring pressor support with phenylephrine -blood culture pending -urine culture pending -sputum culture pending -plan to transfer to Qualifiers: Qualified Code(s): A41.9 - Sepsis, unspecified organism (2) Acute hypoxemic respiratory failure Current Visit: Yes Status: Acute The patient developed Acute hypoxemic respiratory failure likely secondary to pneumonia and pulmonary edema -chest x-ray demonstrated CHF -Currently on nasal cannula saturating well -RALES and wheezing bilaterally on examination -Plan to start gentle diuresis, 20 mg Lasix ordered -Continue nasal cannula but, consider BiPAP at night if needed -antibiotics as above (3) New onset a-fib Current Visit: Yes Status: Acute New onset atrial fibrillation, seen and examined by cardiology who have started Eliquis and Cardizem. -Continue eliquis -hold Cardizem due to hypotension, restart when able (4) Pneumonia Current Visit: Yes Status: Acute Concerned for hospital acquired pneumonia due to new onset acute hypoxic respiratory failure and severe sepsis chest x-ray demonstrating CHF -management as above Qualifiers: Pneumonia type: due to unspecified organism Laterality: unspecified laterality Lung location: unspecified part of lung Qualified Code(s): J18.9 - Pneumonia, unspecified organism (5) UTI (urinary tract infection) Current Visit: Yes Status: Resolved Patient being treated for a UTI. U/A suspicious with leukoctyes esterase. Patient denies hematuria and dysuria -repeat urine culture pending -abx as above Qualifiers: Urinary tract infection type: acute cystitis Hematuria presence: without hematuria Qualified Code(s): N30.00 - Acute cystitis without hematuria (6) Parkinsonian features Current Visit: Yes Status: Acute Family reports history of Parkinson's (7) DVT prophylaxis Current Visit: Yes Status: Acute on eliquis Subjective Principal diagnosis: a.fib Interval history: Patient seen and examined at bedside, she is alert and oriented times 3. Her daughter is that bedside. She denies fever, chills, shortness of breath, chest pain. She has no complaints. Objective PUL Vital signs: Last Vital Signs Temp 99.0 F 10/26/17 07:10 Pulse 84 10/26/17 07:00 Resp 16 10/26/17 05:59 BP 94/55 10/26/17 05:59 Pulse Ox 96 10/26/17 05:59 General appearance: no acute distress Eyes: nonicteric ENT: oropharynx moist Neck: supple Effort: normal Auscultation: bilateral: wheezes, rales Cardiovascular: irregular rhythm Gastrointestinal: normoactive bowel sounds, soft, non-tender, non-distended Integumentary: normal Extremities: no cyanosis, no edema Musculoskeletal: no deformities normal mental status, non-focal exam mood appropriate, affect normal Results - Laboratory Findings CBC and BMP: 10/26/17 04:00 10/26/17 04:00 ABG ABG pH 7.39 pH Units (7.32-7.45) 10/25/17 12:42 ABG pCO2 39 mmHg (35-45) 10/25/17 12:42 ABG pO2 65 mmHg (85-104) L 10/25/17 12:42 ABG O2 Saturation 92 % (95-98) L 10/25/17 12:42 PT/INR, D-dimer PT 12.0 Seconds (9.4-12.1) 10/21/17 18:06 Abnormal lab findings: Abnormal lab results WBC 20.6 K/mcL (4.3-11.1) H 10/26/17 04:00 RBC 3.44 M/mcL (3.82-4.97) L 10/26/17 04:00 Hgb 9.9 g/dL (11.5-15.4) L 10/26/17 04:00 Hct 29.8 % (35.3-44.9) L 10/26/17 04:00 RDW 15.3 % (11.5-14.5) H 10/26/17 04:00 Band Neutrophils % 42.0 % (0-4) H 10/25/17 23:15 Neutrophils # 19.9 K/mcL (1.6-8.9) H 10/25/17 23:15 Monocytes # 1.4 K/mcL (0.0-1.3) H 10/25/17 23:15 APTT 64.5 Seconds (26.0-36.0) H 10/23/17 10:49 ABG pO2 65 mmHg (85-104) L 10/25/17 12:42 ABG O2 Saturation 92 % (95-98) L 10/25/17 12:42 Sodium 134 mEq/L (136-145) L 10/26/17 04:00 Carbon Dioxide 20 mEq/L (23-29) L 10/26/17 04:00 BUN 34 mg/dL (8-23) H 10/26/17 04:00 Creatinine 1.61 mg/dL (0.60-1.20) H 10/26/17 04:00 Est GFR ( Amer) 37 (> 60) L 10/26/17 04:00 Est GFR (Non-Af Amer) 30 (> 60) L 10/26/17 04:00 POC Glucose 112 mg/dL (70-99) H 10/26/17 00:02 Lactic Acid 2.4 mmol/L (0.5-2.2) H 10/25/17 13:27 Calcium 8.1 mg/dL (8.6-10.3) L 10/26/17 04:00 Magnesium 1.2 mg/dL (1.6-2.6) L 10/25/17 14:30 Total T3 0.63 ng/mL (0.87-1.78) L 10/22/17 05:09 Ur Leukocyte Esterase Moderate (Negative) H 10/21/17 15:17 Urine Microscopic WBC 5-15 per hpf (0-3) H 10/21/17 15:17 Ur Squamous Epith Cells Moderate per lpf (None-Few) H 10/21/17 15:17 Ur Culture Indicated? YES (NO) A 10/21/17 15:17 - Microbiology Findings Microbiology Findings: Microbiology, Last 48 Hours 10/25/17 10:50 Legionella Antigen - Final Urine,Catheterized Streptococcus pneumoniae Antigen (M - Final - Clinical Findings Intake & Output: Intake & Output 10/25/17 10/26/17 10/26/17 23:59 07:59 15:59 Intake Total 551 / 551 100 / 100 Output Total 200 / 200 470 / 470 Balance 351 / 351 -370 / -370 Weight 69 kg Consult Discharge Plan - Plan Referrals: Elbert Cody, ADOLESCENT COUNSELOR [Advanced Practice Nurse] - (office will call patient with follow up appointment at home) Danette Real ADOLESCENT COUNSELOR [Primary Care Provider] - (Patient will have to call and make their own appointment per [facility] Medical office) <Lito Gray W - Last Filed: 10/26/17 10:57> Date of Encounter: 10/26/17 Objective PUL Vital signs: Last Vital Signs Temp 99.0 F 10/26/17 07:10 Pulse 84 10/26/17 07:00 Resp 16 10/26/17 05:59 BP 94/55 10/26/17 05:59 Pulse Ox 96 10/26/17 05:59 Results - Laboratory Findings CBC and BMP: 10/26/17 04:00 10/26/17 04:00 ABG ABG pH 7.39 pH Units (7.32-7.45) 10/25/17 12:42 ABG pCO2 39 mmHg (35-45) 10/25/17 12:42 ABG pO2 65 mmHg (85-104) L 10/25/17 12:42 ABG O2 Saturation 92 % (95-98) L 10/25/17 12:42 PT/INR, D-dimer PT 12.0 Seconds (9.4-12.1) 10/21/17 18:06 Abnormal lab findings: Abnormal lab results WBC 20.6 K/mcL (4.3-11.1) H 10/26/17 04:00 RBC 3.44 M/mcL (3.82-4.97) L 10/26/17 04:00 Hgb 9.9 g/dL (11.5-15.4) L 10/26/17 04:00 Hct 29.8 % (35.3-44.9) L 10/26/17 04:00 RDW 15.3 % (11.5-14.5) H 10/26/17 04:00 Band Neutrophils % 42.0 % (0-4) H 10/25/17 23:15 Neutrophils # 19.9 K/mcL (1.6-8.9) H 10/25/17 23:15 Monocytes # 1.4 K/mcL (0.0-1.3) H 10/25/17 23:15 APTT 64.5 Seconds (26.0-36.0) H 10/23/17 10:49 ABG pO2 65 mmHg (85-104) L 10/25/17 12:42 ABG O2 Saturation 92 % (95-98) L 10/25/17 12:42 Sodium 134 mEq/L (136-145) L 10/26/17 04:00 Carbon Dioxide 20 mEq/L (23-29) L 10/26/17 04:00 BUN 34 mg/dL (8-23) H 10/26/17 04:00 Creatinine 1.61 mg/dL (0.60-1.20) H 10/26/17 04:00 Est GFR ( Amer) 37 (> 60) L 10/26/17 04:00 Est GFR (Non-Af Amer) 30 (> 60) L 10/26/17 04:00 POC Glucose 112 mg/dL (70-99) H 10/26/17 00:02 Lactic Acid 2.4 mmol/L (0.5-2.2) H 10/25/17 13:27 Calcium 8.1 mg/dL (8.6-10.3) L 10/26/17 04:00 Magnesium 1.2 mg/dL (1.6-2.6) L 10/25/17 14:30 Total T3 0.63 ng/mL (0.87-1.78) L 10/22/17 05:09 Ur Leukocyte Esterase Moderate (Negative) H 10/21/17 15:17 Urine Microscopic WBC 5-15 per hpf (0-3) H 10/21/17 15:17 Ur Squamous Epith Cells Moderate per lpf (None-Few) H 10/21/17 15:17 Ur Culture Indicated? YES (NO) A 10/21/17 15:17 - Microbiology Findings Microbiology Findings: Microbiology, Last 48 Hours 10/25/17 10:50 Legionella Antigen - Final Urine,Catheterized Streptococcus pneumoniae Antigen (M - Final - Clinical Findings Intake & Output: Intake & Output 10/25/17 10/26/17 10/26/17 23:59 07:59 15:59 Intake Total 551 / 551 100 / 100 Output Total 200 / 200 470 / 470 Balance 351 / 351 -370 / -370 Weight 69 kg - Attending Attestation I examined this patient and my medical decision-making was reviewed with the Resident Physician. I agree with the documented findings, disposition and treatment plan as described except to the extent set forth below. We independently had [id number] contact with the patient Patient seen and examined at bedside Labs, radiology, chart personally reviewed. Management was reviewed during multidisciplinary critical care rounds. WIRE PHOTO OPERATOR: Much more awake and alert today follows all commands no neurological deficits continue to screen for delirium Pulm: Acute hypoxic respiratory failure secondary to pneumonia and cardiogenic pulmonary edema she has been weaned off BiPAP and on the nasal cannula O2 Cards: Atrial fibrillation with rapid ventricular response now rate controlled. Shock likely secondary to cardiac etiology and she has been weaned off vasopressor start diuresis now. We will slowly reintroduce her eli blocking agent for rate control FEN-GI: Advance diet as tolerated Renal: Urine output monitored continue to measure serum creatinine which has increased slightly over the last couple of days but urine output has been acceptable which is stable and electrolytes ID: Continue antibiotics for hospital associated pneumonia with planned to de- escalate based upon culture results over the next 24-48 hours Heme/Onc: DVT prophylaxis given she can be transitioned back to her novel anticoagulant for primary stroke prevention with A. fib Endo: Glucose Monitored Integ/MSK: Skin Care per routine ICU Nursing Protocol to prevent ulcers. Lines: All lines examined without evidence of infection : [facility] CODE: DNAR are patient family updated at bedside all QUESTIONS were answered
[2017-10-26] MEDS ORDERED: Furosemide 20 MG/2 ML VIAL IVP ONE (09:30)
[2017-10-26 09:46] LABS: Magnesium 1.3 mg/dL (1.6-2.6)
[2017-10-26] MEDS ORDERED: Naloxone 0.4 MG/ML INJ IVP PRN (11:46)
[2017-10-26] MEDS ORDERED: Ondansetron 4 MG/2 ML VIAL IVP PRN (11:46)
[2017-10-26] MEDS ORDERED: Acetaminophen 325 MG TABLET PO PRN (11:46)
[2017-10-26] MEDS ORDERED: Ondansetron ODT 4 MG TAB.RAPDIS SL PRN (11:46)
[2017-10-26] MEDS ORDERED: Piperacillin/Tazobactam 3.375 GM in 0.9 % Sodium Chloride Mini Bag 100 ML IVPB SCH (12:00)
[2017-10-26] MEDS: Piperacillin/Tazobactam 3.375 GM in 0.9 % Sodium Chloride Mini Bag 100 ML IVPB SCH (13:06)
[2017-10-26] MEDS: Apixaban 2.5 MG TABLET PO SCH (21:16)
[2017-10-26] MEDS ORDERED: GuaiFENesin Liq 200 MG/10 ML UDC PO PRN (23:18)
[2017-10-27] MEDS: Piperacillin/Tazobactam 3.375 GM in 0.9 % Sodium Chloride Mini Bag 100 ML IVPB SCH ×3 (00:39→16:15)
[2017-10-27] MEDS: Levalbuterol Neb 1.25 MG/3 ML IH SCH ×4 (03:20→22:48)
[2017-10-27 06:08] LABS: Hematocrit 28.4 % (35.3-44.9); Hemoglobin 9.7 g/dL (11.5-15.4); Mean Corpuscular HGB Conc 34.2 g/dL (31.6-35.5); Mean Corpuscular Volume 84.8 fL (83.0-100.0); Mean Platelet Volume 9.7 fL (9.4-12.4); Platelet Count 247 K/mcL (140-400); Red Blood Count 3.35 M/mcL (3.82-4.97); Red Cell Distribution Width 15.1 % (11.5-14.5)
[2017-10-27 06:26] LABS: BUN/Creatinine Ratio 27 (6-26); Blood Urea Nitrogen 23 mg/dL (8-23); Carbon Dioxide 26 mEq/L (23-29); Chloride 105 mEq/L (98-107); Glucose 112 mg/dL (70-105); Osmolality,Calculated 286 (280-300); Potassium 3.2 mEq/L (3.5-5.1); Sodium 136 mEq/L (136-145); Vancomycin,Random 8 mcg/mL; eGFR For African Americans > 60 (> 60); eGFR For Non-African Americans > 60 (> 60)
[2017-10-27] MEDS ORDERED: Aminoglycoside Consult 1 EACH MC ONE (07:27)
[2017-10-27] MEDS: Perphenazine 2 MG TABLET PO SCH ×2 (08:33→21:50)
[2017-10-27] MEDS: Aspirin Enteric Coated 81 MG Tablet PO SCH (08:34)
[2017-10-27] MEDS: Apixaban 2.5 MG TABLET PO SCH ×2 (08:34→21:50)
[2017-10-27] MEDS ORDERED: Ibuprofen 800 MG TABLET PO SCH (09:00)
[2017-10-27] MEDS ORDERED: Furosemide 20 MG/2 ML VIAL IVP ONE ×3 (09:31→18:15)
--- NOTE | 2017-10-27 09:40 | Internal Med Progress Note ---
Date of Encounter: 10/27/17 Time of Encounter: 09:15 - Assessment and plan (1) Sepsis Current Visit: Yes Status: Acute Assessment and plan: Due to HCAP Pt was in shock 3 days ago due to PNA Shock resolved Sepsis improving slowly blood cx , urine cx - no growth so far Sputum viral panel - negative Strep and Legionella - Negative d/c Vanco cont Zosyn for now Qualifiers: Qualified Code(s): A41.9 - Sepsis, unspecified organism (2) Septic shock Current Visit: Yes Status: Acute Assessment and plan: resolved (3) HCAP (healthcare-associated pneumonia) Current Visit: Yes Status: Acute Assessment and plan: mostly bacterial cont broad spec abx Zosyn d/c Vanc (4) Acute hypoxemic respiratory failure Current Visit: Yes Status: Acute Assessment and plan: improving currently on 2 lit O2 try to wean her off the O2 as she tolerates Cont neb treatments (5) UTI (urinary tract infection) Current Visit: Yes Status: Resolved Assessment and plan: ?? UTI finished abx course Qualifiers: Urinary tract infection type: acute cystitis Hematuria presence: without hematuria Qualified Code(s): N30.00 - Acute cystitis without hematuria (6) New onset a-fib Current Visit: Yes Status: Acute Assessment and plan: Rate fairly controlled started on low dose Metoprolol 12.5mg BID on eliquis for anti coag (7) Parkinsonian features Current Visit: Yes Status: Acute Assessment and plan: Continue Parkinson medication (8) Hypokalemia Current Visit: Yes Status: Chronic Assessment and plan: cont replacing (9) DVT prophylaxis Current Visit: Yes Status: Acute Assessment and plan: Continue eliquis, encouraged to increase activity (10) Hypertension Current Visit: Yes Status: Acute Assessment and plan: BP improved now Not in shock any more cont monitoring for now Qualifiers: Hypertension type: essential hypertension Qualified Code(s): I10 - Essential (primary) hypertension (11) ARDS (adult respiratory distress syndrome) Current Visit: Yes Status: Acute Assessment and plan: See plan above - Time Spent With Patient Total time spent is greater than 50% in coordination of care (as documented) at patient's floor/unit and/or counseling patient: - Subjective Interval history: Ms. Robbins is a 87 year old female present to ER for weakness and shaking for about 10 days. Past medical history is significant for hypertension, Parkinson disease. Pt was admitted here for UTI and new onset Afib. Pt was treated with empirical abx. Pt had been c/o SOB and later she became more dyspneic and went into acute hypoxic resp failure. Her CXR showed b/l infiltrates and inc vascular congestion. She did develop fever with T max - 101.5. Pt went into spetic shock on 10/25/17 acute hypoxic resp failure with HCAP. Pt was transferred to ICU on 10/25, started on vasopressors and continued empirical abx Zosyn and Vancomycin. She was off the vaso pressors on same day. Since last 36 hrs pt has been doing well with no vasopressors. Pt was transferred to the [facility] for further care. Today she is alert, awake and o x 3. Denied an CP / SOB. Currently on 2 lit. She did c/o Left arm pain where she had EPV line placed in 3 days ago - Constitutional Vitals: Temp Pulse Resp BP Pulse Ox 98.0 F 101 18 113/60 95 10/27/17 07:08 10/27/17 07:08 10/27/17 07:08 10/27/17 07:08 10/27/17 07:08 General appearance: Present: A&O X 3, pleasant, no acute distress, answers questions appropriately - Head Head exam: Present: atraumatic, normal inspection - Neck Neck exam general surgery: Present: supple - Respiratory Respiratory exam: Present: decreased breath sounds, rales (mild), wheezes (mild) . Absent: respiratory distress, rhonchi - Cardiovascular Cardiovascular exam: Present: irregular rhythm, +S1, +S2. Absent: systolic murmur, tachycardia - GI/Abdominal GI/Abdominal exam: Present: normal bowel sounds, soft. Absent: rebound, rigid, tenderness - Extremities Exam Extremities exam: Present: pedal edema (trace), tenderness (Left arm). Absent: calf tenderness - Back Exam Back exam: Absent: CVA tenderness (L), CVA tenderness (R) - Neurological Exam Neurological exam: Present: alert, oriented X3 - Psychiatric Psychiatric exam: Present: normal affect, normal mood Internal Medicine: Result - Labs CBC & Chem 7: 10/27/17 04:00 10/27/17 04:00 Labs: Short CBC 10/27/17 Range/Units 04:00 WBC 11.5 H (4.3-11.1) K/mcL Hgb 9.7 L (11.5-15.4) g/dL Hct 28.4 L (35.3-44.9) % Plt Count 247 (140-400) K/mcL BMP 10/27/17 04:00 Sodium 136 Potassium 3.2 L Chloride 105 Carbon Dioxide 26 BUN 23 Creatinine 0.85 Glucose 112 H Calcium 9.0 - ABG Interpretation ABG results: ABG ABG pH 7.39 pH Units (7.32-7.45) 10/25/17 12:42 ABG pCO2 39 mmHg (35-45) 10/25/17 12:42 ABG pO2 65 mmHg (85-104) L 10/25/17 12:42 ABG O2 Saturation 92 % (95-98) L 10/25/17 12:42 PT/INR, D-dimer PT 12.0 Seconds (9.4-12.1) 10/21/17 18:06 Consult Discharge Plan - Plan Referrals: Elbert Cody BLACKJACK DEALER [Advanced Practice Nurse] - (office will call patient with follow up appointment at home) Danette Real CNP [Primary Care Provider] - (Patient will have to call and make their own appointment per [facility] Medical office)
[2017-10-27] MEDS ORDERED: MethylPREDNISolone 40 MG/ML VIAL ONE (18:15)
[2017-10-27] MEDS: Ipratropium/Albuterol Neb 3 ML IH SCH ×3 (18:16→23:27)
[2017-10-27] MEDS: MethylPREDNISolone 40 MG/ML VIAL IVP SCH (18:20)
[2017-10-27] MEDS ORDERED: Ipratropium/Albuterol Neb 3 ML IH SCH (20:00)
[2017-10-28] MEDS ORDERED: MethylPREDNISolone 40 MG/ML VIAL IVP SCH
[2017-10-28] MEDS: MethylPREDNISolone 40 MG/ML VIAL IVP SCH ×4 (00:54→15:28)
[2017-10-28] MEDS: Piperacillin/Tazobactam 3.375 GM in 0.9 % Sodium Chloride Mini Bag 100 ML IVPB SCH ×3 (00:54→15:29)
[2017-10-28] MEDS: Levalbuterol Neb 1.25 MG/3 ML IH SCH (04:21)
[2017-10-28] MEDS: Ipratropium/Albuterol Neb 3 ML IH SCH ×6 (04:22→23:07)
[2017-10-28 06:48] LABS: BUN/Creatinine Ratio 29 (6-26); Blood Urea Nitrogen 20 mg/dL (8-23); Calcium 9.6 mg/dL (8.6-10.3); Carbon Dioxide 30 mEq/L (23-29); Chloride 99 mEq/L (98-107); Glucose 158 mg/dL (70-105); Magnesium 1.4 mg/dL (1.6-2.6); Osmolality,Calculated 288 (280-300); Potassium 3.5 mEq/L (3.5-5.1); Sodium 136 mEq/L (136-145); eGFR For African Americans > 60 (> 60); eGFR For Non-African Americans > 60 (> 60)
[2017-10-28 06:51] LABS: Basophils % 0.1 %; Eosinophils % 0.1 %; Hematocrit 31.9 % (35.3-44.9); Hemoglobin 10.5 g/dL (11.5-15.4); Immature Granulocytes % 0.4 % (0-4); Lymphocytes # 1.1 K/mcL (0.6-4.6); Lymphocytes % 15.2 %; Mean Corpuscular HGB Conc 32.9 g/dL (31.6-35.5); Mean Corpuscular Hemoglobin 27.6 pg (28.0-33.3); Mean Corpuscular Volume 83.9 fL (83.0-100.0); Mean Platelet Volume 10.2 fL (9.4-12.4); Monocytes # 0.1 K/mcL (0.0-1.3); Monocytes % 1.4 %; Neutrophils # 5.7 K/mcL (1.6-8.9); Platelet Count 291 K/mcL (140-400); Red Cell Distribution Width 14.7 % (11.5-14.5); Segmented Neutrophils % 82.8 %
[2017-10-28] MEDS ORDERED: Albuterol 2.5 MG/3 ML NEBULIZER IH PRN (07:27)
[2017-10-28] MEDS: Apixaban 2.5 MG TABLET PO SCH ×2 (09:15→21:06)
[2017-10-28] MEDS: Perphenazine 2 MG TABLET PO SCH ×2 (09:15→21:07)
[2017-10-28] MEDS: Aspirin Enteric Coated 81 MG Tablet PO SCH (09:16)
[2017-10-28] MEDS: Psyllium 1 PACKET POWD.PACK PO SCH (12:56)
--- NOTE | 2017-10-28 14:47 | Electrocardiograph Report ---
[address] [address] Test Date: 2017-10-25 Pat Name: Peyton Robbins Department: 110 Room: 2A14 Gender: F Cherry Pitter: : [id number] Requested By: [id number] Order Number: [id number] Reading MD: Ralf Harper Measurements Intervals [place] Rate: 103 P: ND: 0 QRS: 3 QRSD: 86 T: 11 QT: 330 QTc: 389 Interpretive Statements ATRIAL FIBRILLATION WITH RAPID VENTRICULAR RESPONSE ABNORMAL RHYTHM ECG Electronically Signed On 10-28-2017 14:45:27 EDT by Ralf Harper
--- NOTE | 2017-10-28 15:38 | Internal Med Progress Note ---
Date of Encounter: 10/28/17 Time of Encounter: 11:15 - Assessment and plan (1) Sepsis Current Visit: Yes Status: Acute Assessment and plan: Due to HCAP Pt was in shock 3 days ago due to PNA Shock resolved Sepsis improving slowly blood cx , urine cx - no growth so far Sputum viral panel - negative Strep and Legionella - Negative cont Zosyn for now # 4/7 Qualifiers: Qualified Code(s): A41.9 - Sepsis, unspecified organism (2) Septic shock Current Visit: Yes Status: Acute Assessment and plan: resolved (3) HCAP (healthcare-associated pneumonia) Current Visit: Yes Status: Acute Assessment and plan: mostly bacterial cont broad spec abx Zosyn # 4/7 d/c Vanc (4) Acute hypoxemic respiratory failure Current Visit: Yes Status: Acute Assessment and plan: improving currently on 2 lit O2 try to wean her off the O2 as she tolerates Cont neb treatments (5) ARDS (adult respiratory distress syndrome) Current Visit: Yes Status: Acute Assessment and plan: Due to PNA will give Lasix as needed Had 2200 out put y/d (6) UTI (urinary tract infection) Current Visit: Yes Status: Resolved Assessment and plan: ?? UTI finished abx course Qualifiers: Urinary tract infection type: acute cystitis Hematuria presence: without hematuria Qualified Code(s): N30.00 - Acute cystitis without hematuria (7) New onset a-fib Current Visit: Yes Status: Acute Assessment and plan: Rate fairly controlled Inc Metoprolol to 25mg BID on eliquis for anti coag (8) Parkinsonian features Current Visit: Yes Status: Acute Assessment and plan: Continue Parkinson medication (9) Hypokalemia Current Visit: Yes Status: Chronic Assessment and plan: cont replacing (10) Hypertension Current Visit: Yes Status: Acute Assessment and plan: BP improved now Not in shock any more cont monitoring for now Qualifiers: Hypertension type: essential hypertension Qualified Code(s): I10 - Essential (primary) hypertension (11) DVT prophylaxis Current Visit: Yes Status: Acute Assessment and plan: Continue eliquis, encouraged to increase activity - Time Spent With Patient Total time spent is greater than 50% in coordination of care (as documented) at patient's floor/unit and/or counseling patient: - Subjective Interval history: Ms. Robbins is a 87 year old female present to ER for weakness and shaking for about 10 days. Past medical history is significant for hypertension, Parkinson disease. Pt was admitted here for UTI and new onset Afib. Pt was treated with empirical abx. Pt had been c/o SOB and later she became more dyspneic and went into acute hypoxic resp failure. Her CXR showed b/l infiltrates and inc vascular congestion. She did develop fever with T max - 101.5. Pt went into spetic shock on 10/25/17 acute hypoxic resp failure with HCAP. Pt was transferred to ICU on 10/25, started on vasopressors and continued empirical abx Zosyn and Vancomycin. She was off the vaso pressors on same day. Since last 36 hrs pt has been doing well with no vasopressors. Pt was transferred to [facility] for further care. Today she is alert, awake and o x 3. Currently on 2 lit. Pt had another episode of severe SOB last night, she was given Lasix and IV steroids. Her Left arm pain is better now. No CP. She still has moderate SOB and TURNER. - Constitutional Vitals: Temp Pulse Resp BP Pulse Ox 98.1 F 95 16 155/88 98 10/28/17 11:18 10/28/17 11:18 10/28/17 11:26 10/28/17 11:18 10/28/17 11:26 General appearance: Present: A&O X 3, pleasant, no acute distress, answers questions appropriately - Head Head exam: Present: atraumatic, normal inspection - Neck Neck exam general surgery: Present: supple - Respiratory Respiratory exam: Present: decreased breath sounds, wheezes (moderate). Absent : rales, respiratory distress, rhonchi - Cardiovascular Cardiovascular exam: Present: RRR, +S1, +S2. Absent: tachycardia - GI/Abdominal GI/Abdominal exam: Present: normal bowel sounds, soft. Absent: rebound, rigid, tenderness - Extremities Exam Extremities exam: Present: pedal edema (trace). Absent: calf tenderness, tenderness - Back Exam Back exam: Absent: CVA tenderness (L), CVA tenderness (R) - Neurological Exam Neurological exam: Present: alert, oriented X3 - Psychiatric Psychiatric exam: Present: normal affect, normal mood Internal Medicine: Result - Labs CBC & Chem 7: 10/28/17 06:14 10/28/17 06:14 Labs: Short CBC 10/28/17 Range/Units 06:14 WBC 6.9 (4.3-11.1) K/mcL Hgb 10.5 L (11.5-15.4) g/dL Hct 31.9 L (35.3-44.9) % Plt Count 291 (140-400) K/mcL Neutrophils # 5.7 (1.6-8.9) K/mcL BMP 10/28/17 06:14 Sodium 136 Potassium 3.5 Chloride 99 Carbon Dioxide 30 H BUN 20 Creatinine 0.68 Glucose 158 H Calcium 9.6 - ABG Interpretation ABG results: ABG ABG pH 7.39 pH Units (7.32-7.45) 10/25/17 12:42 ABG pCO2 39 mmHg (35-45) 10/25/17 12:42 ABG pO2 65 mmHg (85-104) L 10/25/17 12:42 ABG O2 Saturation 92 % (95-98) L 10/25/17 12:42 PT/INR, D-dimer PT 12.0 Seconds (9.4-12.1) 10/21/17 18:06 Consult Discharge Plan - Plan Referrals: Elbert Cody ENGAGEMENT MGR [Advanced Practice Nurse] - (office will call patient with follow up appointment at home) Danette Real CNP [Primary Care Provider] - (Patient will have to call and make their own appointment per [facility] Medical office)
[2017-10-29] MEDS: MethylPREDNISolone 40 MG/ML VIAL IVP SCH ×3 (00:32→17:07)
[2017-10-29] MEDS: Piperacillin/Tazobactam 3.375 GM in 0.9 % Sodium Chloride Mini Bag 100 ML IVPB SCH ×3 (00:33→15:41)
[2017-10-29] MEDS: Ipratropium/Albuterol Neb 3 ML IH SCH ×6 (03:21→23:47)
[2017-10-29 05:20] LABS: Basophils % 0.1 %; Hematocrit 30.6 % (35.3-44.9); Hemoglobin 10.4 g/dL (11.5-15.4); Immature Granulocytes % 1.3 % (0-4); Lymphocytes # 1.4 K/mcL (0.6-4.6); Lymphocytes % 13.2 %; Mean Corpuscular Hemoglobin 28.5 pg (28.0-33.3); Mean Corpuscular Volume 83.8 fL (83.0-100.0); Mean Platelet Volume 10.1 fL (9.4-12.4); Monocytes # 0.5 K/mcL (0.0-1.3); Monocytes % 4.5 %; Neutrophils # 8.4 K/mcL (1.6-8.9); Platelet Count 295 K/mcL (140-400); Red Blood Count 3.65 M/mcL (3.82-4.97); Red Cell Distribution Width 14.5 % (11.5-14.5); Segmented Neutrophils % 80.9 %
[2017-10-29 05:44] LABS: BUN/Creatinine Ratio 34 (6-26); Blood Urea Nitrogen 23 mg/dL (8-23); Calcium 9.6 mg/dL (8.6-10.3); Carbon Dioxide 28 mEq/L (23-29); Chloride 98 mEq/L (98-107); Glucose 167 mg/dL (70-105); Magnesium 1.9 mg/dL (1.6-2.6); Osmolality,Calculated 287 (280-300); Potassium 3.3 mEq/L (3.5-5.1); Sodium 135 mEq/L (136-145); eGFR For African Americans > 60 (> 60); eGFR For Non-African Americans > 60 (> 60)
[2017-10-29] MEDS: Aspirin Enteric Coated 81 MG Tablet PO SCH (08:18)
[2017-10-29] MEDS: Apixaban 2.5 MG TABLET PO SCH ×2 (08:18→20:19)
[2017-10-29] MEDS: Psyllium 1 PACKET POWD.PACK PO SCH (08:19)
[2017-10-29] MEDS: Perphenazine 2 MG TABLET PO SCH ×2 (08:21→20:19)
--- NOTE | 2017-10-29 15:52 | Internal Med Progress Note ---
Date of Encounter: 10/29/17 Time of Encounter: 15:41 - Assessment and plan (1) Sepsis Current Visit: Yes Status: Acute Assessment and plan: Due to HCAP Pt was in shock 3 days ago due to PNA Shock resolved Sepsis improving slowly blood cx , urine cx - no growth so far Sputum viral panel - negative Strep and Legionella - Negative Switched to PO Augmentin # 5/10 Qualifiers: Qualified Code(s): A41.9 - Sepsis, unspecified organism (2) Septic shock Current Visit: Yes Status: Acute Assessment and plan: resolved (3) HCAP (healthcare-associated pneumonia) Current Visit: Yes Status: Acute Assessment and plan: mostly bacterial Switched to PO Augmentin (4) Acute hypoxemic respiratory failure Current Visit: Yes Status: Acute Assessment and plan: improving currently on 2 lit O2 try to wean her off the O2 as she tolerates Cont neb treatments (5) ARDS (adult respiratory distress syndrome) Current Visit: Yes Status: Acute Assessment and plan: Due to PNA will give Lasix as needed Improving (6) UTI (urinary tract infection) Current Visit: Yes Status: Resolved Assessment and plan: ?? UTI finished abx course Qualifiers: Urinary tract infection type: acute cystitis Hematuria presence: without hematuria Qualified Code(s): N30.00 - Acute cystitis without hematuria (7) New onset a-fib Current Visit: Yes Status: Acute Assessment and plan: Rate fairly controlled Inc Metoprolol to 25mg BID on eliquis for anti coag (8) Parkinsonian features Current Visit: Yes Status: Acute Assessment and plan: Continue Parkinson medication (9) Hypokalemia Current Visit: Yes Status: Chronic Assessment and plan: cont replacing (10) Hypertension Current Visit: Yes Status: Acute Assessment and plan: Resumed home meds Qualifiers: Hypertension type: essential hypertension Qualified Code(s): I10 - Essential (primary) hypertension (11) DVT prophylaxis Current Visit: Yes Status: Acute Assessment and plan: Continue eliquis, encouraged to increase activity - Time Spent With Patient Total time spent is greater than 50% in coordination of care (as documented) at patient's floor/unit and/or counseling patient: - Subjective Interval history: Ms. Robbins is a 87 year old female present to ER for weakness and shaking for about 10 days. Past medical history is significant for hypertension, Parkinson disease. Pt was admitted here for UTI and new onset Afib. Pt was treated with empirical abx. Pt had been c/o SOB and later she became more dyspneic and went into acute hypoxic resp failure. Her CXR showed b/l infiltrates and inc vascular congestion. She did develop fever with T max - 101.5. Pt went into spetic shock on 10/25/17 acute hypoxic resp failure with HCAP. Pt was transferred to ICU on 10/25, started on vasopressors and continued empirical abx Zosyn and Vancomycin. She was off the vaso pressors on same day. Pt was transferred to [facility] for further care. Today she is alert, awake and o x 3. Currently on 2 lit. Her Left arm pain is better now. No CP. She still has mild SOB and TURNER. - Constitutional Vitals: Temp Pulse Resp BP Pulse Ox 97.5 F L 101 18 156/78 92 10/29/17 15:19 10/29/17 15:19 10/29/17 15:19 10/29/17 15:19 10/29/17 15:19 General appearance: Present: A&O X 3, pleasant, no acute distress, answers questions appropriately - Head Head exam: Present: atraumatic, normal inspection - Neck Neck exam general surgery: Present: supple - Respiratory Respiratory exam: Present: decreased breath sounds. Absent: rales, respiratory distress, rhonchi, wheezes - Cardiovascular Cardiovascular exam: Present: +S1, +S2. Absent: tachycardia - GI/Abdominal GI/Abdominal exam: Present: normal bowel sounds, soft. Absent: rebound, rigid, tenderness - Extremities Exam Extremities exam: Absent: calf tenderness, pedal edema, tenderness - Back Exam Back exam: Absent: CVA tenderness (L), CVA tenderness (R) - Neurological Exam Neurological exam: Present: alert, oriented X3 - Psychiatric Psychiatric exam: Present: normal affect, normal mood Internal Medicine: Result - Labs CBC & Chem 7: 10/29/17 04:00 10/29/17 04:00 Labs: Short CBC 10/29/17 Range/Units 04:00 WBC 10.3 (4.3-11.1) K/mcL Hgb 10.4 L (11.5-15.4) g/dL Hct 30.6 L (35.3-44.9) % Plt Count 295 (140-400) K/mcL Neutrophils # 8.4 (1.6-8.9) K/mcL BMP 10/29/17 04:00 Sodium 135 L Potassium 3.3 L Chloride 98 Carbon Dioxide 28 BUN 23 Creatinine 0.67 Glucose 167 H Calcium 9.6 - ABG Interpretation ABG results: ABG ABG pH 7.39 pH Units (7.32-7.45) 10/25/17 12:42 ABG pCO2 39 mmHg (35-45) 10/25/17 12:42 ABG pO2 65 mmHg (85-104) L 10/25/17 12:42 ABG O2 Saturation 92 % (95-98) L 10/25/17 12:42 PT/INR, D-dimer PT 12.0 Seconds (9.4-12.1) 10/21/17 18:06 - VTE Documentation of Mechanical Device: Graduated compression elastic hosiery Consult Discharge Plan - Plan Referrals: Elbert Cody, OPERATIONS SECTION MANAGER [Advanced Practice Nurse] - (office will call patient with follow up appointment at home) Danette Real OPERATIONS SECTION MANAGER [Primary Care Provider] - (Patient will have to call and make their own appointment per [facility] Medical office)
[2017-10-30] MEDS: MethylPREDNISolone 40 MG/ML VIAL IVP SCH ×2 (00:43→09:12)
[2017-10-30] MEDS: Ipratropium/Albuterol Neb 3 ML IH SCH ×4 (03:18→16:28)
[2017-10-30] MEDS: Aspirin Enteric Coated 81 MG Tablet PO SCH (09:11)
[2017-10-30] MEDS: Psyllium 1 PACKET POWD.PACK PO SCH ×2 (09:11→09:17)
[2017-10-30] MEDS: Apixaban 2.5 MG TABLET PO SCH (09:11)
[2017-10-30] MEDS: Perphenazine 2 MG TABLET PO SCH (09:20)
[2017-10-30] MEDS ORDERED: Diltiazem CD (24hr) 240 MG CAPSULE PO SCH (14:00)
--- NOTE | 2017-10-30 14:20 | Discharge Summary ---
- NOTES TO OUTPATIENT PROVIDER Notes to Outpatient Provider: f/u with PCP in one week. cont tapering steroids Date of Encounter: 10/30/17 Time of Encounter: 14:00 - Discharge Diagnosis (1) Sepsis Priority: Primary Status: Acute Qualifiers: Qualified Code(s): A41.9 - Sepsis, unspecified organism (2) HCAP (healthcare-associated pneumonia) Priority: Primary Status: Acute (3) Septic shock Priority: Secondary Status: Acute (4) Acute hypoxemic respiratory failure Priority: Primary Status: Acute (5) ARDS (adult respiratory distress syndrome) Priority: Secondary Status: Acute (6) UTI (urinary tract infection) Priority: Secondary Status: Resolved Qualifiers: Urinary tract infection type: acute cystitis Hematuria presence: without hematuria Qualified Code(s): N30.00 - Acute cystitis without hematuria (7) New onset a-fib Priority: Secondary Status: Acute (8) Parkinsonian features Priority: Secondary Status: Acute (9) Hypokalemia Priority: Secondary Status: Chronic (10) Hypertension Priority: Secondary Status: Acute Qualifiers: Hypertension type: essential hypertension Qualified Code(s): I10 - Essential (primary) hypertension (11) DVT prophylaxis Priority: Secondary Status: Acute Hospital course: Ms. Robbins is a 87 year old female present to ER for weakness and shaking for about 10 days. Past medical history is significant for hypertension, Parkinson disease. Pt was admitted here for UTI and new onset Afib. Pt was treated with empirical abx. Pt had been c/o SOB and later she became more dyspneic and went into acute hypoxic resp failure. Her CXR showed b/l infiltrates and inc vascular congestion. She did develop fever with T max - 101.5. Pt went into spetic shock on 10/25/17 acute hypoxic resp failure with HCAP. Pt was transferred to ICU on 10/25, started on vasopressors and continued empirical abx Zosyn and Vancomycin. She was off the vaso pressors on same day. Pt was transferred to [facility] for further care. Pt was placed on high dose IV steroids and continue abx. Also pt was give Lasix IV PRN. Her symptoms started improving slowly. Pt was evaluated by PT / OT, who recommend ECF transfer for short term PT / OT. Her HR fairly controlled , so continued Metoprolol 25mg BID and resumed home med Cardizem CD 240mg. [facility] d[facility]. - Time Spent with Patient Total time spent providing and/or coordinating discharge services: - Discharge Medications Prescriptions: Furosemide [Lasix] 20 mg PO DAILY #30 tablet Home Medications: Calcium Carbonate/Vitamin D3 [Calcium 600 + D Tablet] 1 each PO DAILY 01/30/15 [ History] Diltiazem CD (24hr) [Cardizem CD] 240 mg PO QAM 01/30/15 [History] Gabapentin [Neurontin] 600 mg PO HS 01/30/15 [History] Omeprazole [PriLOSEC] 20 mg PO DAILY 01/30/15 [History] Cholecalciferol (Vitamin D3) [Vitamin D3] 1,000 unit PO DAILY 07/20/15 [History] Multivit-Min/FA/Lycopen/Lutein [Centrum Silver Tablet] 1 each PO DAILY 07/20/15 [History] Trihexyphenidyl [Artane] 1 mg PO TID 07/20/15 [History] Amitriptyline [Elavil] 25 mg PO BID 10/21/17 [History] Aspirin [Lo-Dose Aspirin EC] 81 mg PO DAILY 10/21/17 [History] Lactobacillus Acidophilus [Acidophilus Probiotic] 1 mg PO DAILY 10/21/17 [ History] Levothyroxine Sodium [Levoxyl] 75 mcg PO DAILY 10/21/17 [History] Losartan [Cozaar] 50 mg PO QPM 10/21/17 [History] Perphenazine 4 mg PO BID 10/21/17 [History] Wheat Dextrin [Benefiber] 1 each PO DAILY 10/21/17 [History] Amoxicillin/Clavulanate [Augmentin] 875 mg PO BIDWM #8 tablet 10/30/17 [Rx] Apixaban [Eliquis] 5 mg PO BID tablet 10/30/17 [Rx] Furosemide [Lasix] 20 mg PO DAILY #30 tablet 10/30/17 [Rx] Metoprolol [Lopressor] 25 mg PO BID tablet 10/30/17 [Rx] predniSONE [PredniSONE] 40 mg PO DAILY #10 tablet 10/30/17 [Rx] Allergies/Adverse Reactions: 3 Allergy/AdvReac Type Severity Reaction Status Date / Time codeine Allergy unsure Verified 03/14/17 13:17 Sulfa (Sulfonamide Allergy Vomiting Verified 03/14/17 13:17 Antibiotics) Date of admission: 10/26/17 14:59 Primary care physician: Danette Real CNP Consults: 10/27/17 09:50 Consult to Physical Therapy [CONS] Routine Comment: Evaluate, develop and implement POC Reason for Consult: Deconditioning Does patient have active BEDREST order?: No Is patient medically & hemodynamically stable?: Yes Patient assessed for mobility or mobilized this visit?: Yes OT [Consult to Occupational Therapy] [CONS] Routine Comment: Evaluate, develop and implement POC Reason for Consult: Deconditioning Does patient have active BEDREST order?: No Is patient medically & hemodynamically stable?: Yes Patient assessed for mobility or mobilized this visit?: Yes 10/29/17 07:31 Consult to Agile Business Analyst [CONS] Routine Reason for SW Consult: pt needs swing bed - Constitutional Vitals: Temp Pulse Resp BP Pulse Ox 98.4 F 120 16 168/98 96 10/30/17 11:03 10/30/17 11:03 10/30/17 11:40 10/30/17 11:03 10/30/17 11:40 General appearance: Present: A&O X 3, pleasant, no acute distress, answers questions appropriately - Head Head exam: Present: atraumatic, normal inspection - Neck Neck exam general surgery: Present: supple - Respiratory Respiratory exam: Present: decreased breath sounds, wheezes (mild). Absent: rales, respiratory distress, rhonchi - Cardiovascular Cardiovascular exam: Present: RRR, +S1, +S2. Absent: tachycardia - Extremities Exam Extremities exam: Absent: calf tenderness, pedal edema, tenderness - Back Exam Back exam: Absent: CVA tenderness (L), CVA tenderness (R) - Neurological Exam Neurological exam: Present: alert, oriented X3 - Psychiatric Psychiatric exam: Present: normal affect, normal mood - Patient Status Disposition: Transfer SNF Condition: Good Overall status at discharge: patient is back to baseline - Discharge Instructions Follow Up With: Elbert Cody CNP [Advanced Practice Nurse] - (office will call patient with follow up appointment at home) Danette Real CNP [Primary Care Provider] - (Patient will have to call and make their own appointment per [facility] Medical office) - Diet and Activity Activity: increase activity as tolerated, wear oxygen at all times (2) Diet: low salt diet - VTE Documentation of Mechanical Device: Graduated compression elastic hosiery
--- NOTE | 2017-10-30 14:26 | Physician Discharge Referral ---
ExtendedCare Referral Info Transfer To: ECF Provider in Charge after Transfer: PCP Institutional Level of Care: Skilled - Diagnosis (1) Sepsis Status: Acute (2) HCAP (healthcare-associated pneumonia) Status: Acute (3) Septic shock Status: Acute (4) Acute hypoxemic respiratory failure Status: Acute (5) ARDS (adult respiratory distress syndrome) Status: Acute (6) UTI (urinary tract infection) Status: Resolved (7) New onset a-fib Status: Acute (8) Parkinsonian features Status: Acute (9) Hypokalemia Status: Chronic (10) Hypertension Status: Acute (11) DVT prophylaxis Status: Acute - Transfer Medications Prescriptions: Albuterol Neb [AccuNeb] 0.63 mg IH Q6H PRN #100 inhsol PRN Reason: Shortness Of Breath Furosemide [Lasix] 20 mg PO DAILY #30 tablet predniSONE [PredniSONE] 40 mg PO DAILY #10 tablet Home Medications: Calcium Carbonate/Vitamin D3 [Calcium 600 + D Tablet] 1 each PO DAILY 01/30/15 [ History] Diltiazem CD (24hr) [Cardizem CD] 240 mg PO QAM 01/30/15 [History] Gabapentin [Neurontin] 600 mg PO HS 01/30/15 [History] Omeprazole [PriLOSEC] 20 mg PO DAILY 01/30/15 [History] Cholecalciferol (Vitamin D3) [Vitamin D3] 1,000 unit PO DAILY 07/20/15 [History] Multivit-Min/FA/Lycopen/Lutein [Centrum Silver Tablet] 1 each PO DAILY 07/20/15 [History] Trihexyphenidyl [Artane] 1 mg PO TID 07/20/15 [History] Amitriptyline [Elavil] 25 mg PO BID 10/21/17 [History] Aspirin [Lo-Dose Aspirin EC] 81 mg PO DAILY 10/21/17 [History] Lactobacillus Acidophilus [Acidophilus Probiotic] 1 mg PO DAILY 10/21/17 [ History] Levothyroxine Sodium [Levoxyl] 75 mcg PO DAILY 10/21/17 [History] Losartan [Cozaar] 50 mg PO QPM 10/21/17 [History] Perphenazine 4 mg PO BID 10/21/17 [History] Wheat Dextrin [Benefiber] 1 each PO DAILY 10/21/17 [History] Albuterol Neb [AccuNeb] 0.63 mg IH Q6H PRN #100 inhsol 10/30/17 [Rx] Amoxicillin/Clavulanate [Augmentin] 875 mg PO BIDWM #8 tablet 10/30/17 [Rx] Apixaban [Eliquis] 5 mg PO BID tablet 10/30/17 [Rx] Furosemide [Lasix] 20 mg PO DAILY #30 tablet 10/30/17 [Rx] Metoprolol [Lopressor] 25 mg PO BID tablet 10/30/17 [Rx] predniSONE [PredniSONE] 40 mg PO DAILY #10 tablet 10/30/17 [Rx] Allergies/Adverse Reactions: 3 Allergy/AdvReac Type Severity Reaction Status Date / Time codeine Allergy unsure Verified 03/14/17 13:17 Sulfa (Sulfonamide Allergy Vomiting Verified 03/14/17 13:17 Antibiotics) - Respiratory Orders Smoking Cessation: Smoking cessation has been advised. For more information, call the [place] Tobacco Quit Line at 0-719-SKBV-NOW. CERTIFICATION: I certify that the transfer of the above named patient to an Extended Care Facility is necessary for the continuing treatment of the diagnosis listed. The above information is true and accurate reflection of patient's current condition. Confidential - Redisclosure prohibited without a patient's written consent.
[2017-10-30 15:33] VITALS: BP 156/82
[2017-10-30] MEDS ORDERED: predniSONE 20 MG TABLET PO SCH (16:00)
== END 2017-10-30 19:10 | DRG 871 ==
LOC: EMEROO 16:16 → 3BNU 16:16 → 2NNU 10-25 11:17 → ICNU 10-25 13:41 → 2ANU 10-26 16:24
PROVIDERS: ADMIT Nurse Practitioner Family; ATTEND Nurse Practitioner Family

== ENCOUNTER 2017-11-13 06:10 | Inpatient (IN) ==
[2017-11-13] MEDS ORDERED: Vancomycin 1,000 MG VIAL IVPB ONE (06:18)
[2017-11-13] MEDS ORDERED: 0.9 % Sodium Chloride 1,000 ML IVC ONE (06:18)
[2017-11-13] MEDS ORDERED: Isovue-370 500 ML INFUS..BTL IV ONE (06:18)
[2017-11-13] MEDS ORDERED: Piperacillin/Tazobactam 3.375 GM in 0.9 % Sodium Chloride Mini Bag 100 ML IVPB ONE (06:18)
[2017-11-13] MEDS ORDERED: Phenylephrine Nasal 0.5% 15 ML BOTTLE NS ONE (06:20)
[2017-11-13] MEDS ORDERED: 0.9 % Sodium Chloride 1,000 ML ONE (06:30)
[2017-11-13] MEDS ORDERED: Propofol 500 MG/50 ML INFUS..BTL IVC SCH (06:30)
--- NOTE | 2017-11-13 06:40 | Emergency Department Note ---
Disposition Referrals: Danette Real, [employer] [Primary Care Provider] - General Adult HPI - General Chief complaint: ED Shortness of Breath/Dyspnea Stated complaint: nose bleed Time Seen by Provider: 11/13/17 06:18 Source: patient, EMS Limitations: no limitations - History of Present Illness Pain Scale: 0 - Related Data Home Medications Medication Instructions Recorded Confirmed Calcium Carbonate/Vitamin D3 1 each PO DAILY 01/30/15 10/21/17 [Calcium 600 + D Tablet] Diltiazem CD (24hr) [Cardizem CD] 240 mg PO QAM 01/30/15 10/21/17 Gabapentin [Neurontin] 600 mg PO HS 01/30/15 10/21/17 Omeprazole [PriLOSEC] 20 mg PO DAILY 01/30/15 10/21/17 Cholecalciferol (Vitamin D3) 1,000 unit PO DAILY 07/20/15 10/21/17 [Vitamin D3] Multivit-Min/FA/Lycopen/Lutein 1 each PO DAILY 07/20/15 10/21/17 [Centrum Silver Tablet] Trihexyphenidyl [Artane] 1 mg PO TID 07/20/15 10/21/17 Amitriptyline [Elavil] 25 mg PO BID 10/21/17 10/21/17 Aspirin [Lo-Dose Aspirin EC] 81 mg PO DAILY 10/21/17 10/21/17 Lactobacillus Acidophilus 1 mg PO DAILY 10/21/17 10/21/17 [Acidophilus Probiotic] Levothyroxine Sodium [Levoxyl] 75 mcg PO DAILY 10/21/17 10/21/17 Losartan [Cozaar] 50 mg PO QPM 10/21/17 10/21/17 Perphenazine 4 mg PO BID 10/21/17 10/21/17 Wheat Dextrin [Benefiber] 1 each PO DAILY 10/21/17 10/21/17 Previous Rx's Medication Instructions Recorded Albuterol Neb [AccuNeb] 0.63 mg IH Q6H PRN #100 inhsol 10/30/17 Amoxicillin/Clavulanate [Augmentin] 875 mg PO BIDWM #8 tablet 10/30/17 Apixaban [Eliquis] 5 mg PO BID tablet 10/30/17 Furosemide [Lasix] 20 mg PO DAILY #30 tablet 10/30/17 Metoprolol [Lopressor] 25 mg PO BID tablet 10/30/17 predniSONE [PredniSONE] 40 mg PO DAILY #10 tablet 10/30/17 Allergies Allergy/AdvReac Type Severity Reaction Status Date / Time codeine Allergy unsure Verified 03/14/17 13:17 Sulfa (Sulfonamide Allergy Vomiting Verified 03/14/17 13:17 Antibiotics) Past Medical History - Past Medical History Medical history: Reports: arthritis, atrial fibrillation, DVT, hypertension, thyroid disease, other Surgical history: Reports: cataract, cholecystectomy, hysterectomy Psychiatric history: Reports: anxiety - Social History Smoking Status: Never smoker Smokeless Tobacco Status: No Alcohol use: Reports: none Drug use: Reports: none Physical Exam - General Limitations: no limitations General appearance: alert Course Vital Signs Temperature 97.5 F L 11/13/17 06:13 Pulse Rate 109 11/13/17 06:13 Respiratory Rate 24 11/13/17 06:13 Blood Pressure 186/104 11/13/17 06:13 O2 Sat by Pulse Oximetry 78 11/13/17 06:13 Temperature 97.5 F L 11/13/17 06:13 Pulse Rate 109 11/13/17 06:13 Respiratory Rate 24 11/13/17 06:13 Blood Pressure 186/104 11/13/17 06:13 O2 Sat by Pulse Oximetry 78 11/13/17 06:13 Oxygen Delivery Oxygen Delivery Room Air Attestation Statement - Attestation Attestation: I examined this patient and my medical decision-making was reviewed with the Resident Physician. I agree with the documented findings, disposition and treatment plan as described except to the extent set forth below. Patient has respiratory failure with massive hemoptysis and possible posterior epistaxis. Patient was emergently intubated after discussion with the patient about possible reversible causes of bleeding. She will be receiving 4 factor reversal agent as well as nasal packing bilaterally with transiting [place] soaked nasal packing. Her nose and throat as well as pulmonary OB consulted for bronchoscopy and evaluation of posterior epistaxes.
--- NOTE | 2017-11-13 06:42 | Emergency Department Note ---
Disposition Clinical Impression: Hemoptysis, Epistaxis Respiratory failure Qualifiers: Chronicity: acute Respiratory failure complication: hypoxia Qualified Code(s): J96.01 - Acute respiratory failure with hypoxia Disposition: Still a Patient Condition: Fair Referrals: Danette Real CNP [Primary Care Provider] - Forms: ED Satisfaction Letter Time of Disposition: 07:31 General Adult HPI - General Chief complaint: ED Shortness of Breath/Dyspnea Stated complaint: nose bleed Time Seen by Provider: 11/13/17 06:18 Source: patient, EMS Limitations: no limitations Nursing Notes Reviewed: Yes Vital Signs Reviewed: Yes - History of Present Illness HPI Narrative: Female patient reports left sided sharp chest pain earlier this morning. And then started having massive hemoptysis. Having hard time maintaining an airway. Also having rhinorrhea at this time. Is on Elequis. Pain Scale: 0 - Related Data Home Medications Medication Instructions Recorded Confirmed Calcium Carbonate/Vitamin D3 1 each PO DAILY 01/30/15 10/21/17 [Calcium 600 + D Tablet] Diltiazem CD (24hr) [Cardizem CD] 240 mg PO QAM 01/30/15 10/21/17 Gabapentin [Neurontin] 600 mg PO HS 01/30/15 10/21/17 Omeprazole [PriLOSEC] 20 mg PO DAILY 01/30/15 10/21/17 Cholecalciferol (Vitamin D3) 1,000 unit PO DAILY 07/20/15 10/21/17 [Vitamin D3] Multivit-Min/FA/Lycopen/Lutein 1 each PO DAILY 07/20/15 10/21/17 [Centrum Silver Tablet] Trihexyphenidyl [Artane] 1 mg PO TID 07/20/15 10/21/17 Amitriptyline [Elavil] 25 mg PO BID 10/21/17 10/21/17 Aspirin [Lo-Dose Aspirin EC] 81 mg PO DAILY 10/21/17 10/21/17 Lactobacillus Acidophilus 1 mg PO DAILY 10/21/17 10/21/17 [Acidophilus Probiotic] Levothyroxine Sodium [Levoxyl] 75 mcg PO DAILY 10/21/17 10/21/17 Losartan [Cozaar] 50 mg PO QPM 10/21/17 10/21/17 Perphenazine 4 mg PO BID 10/21/17 10/21/17 Wheat Dextrin [Benefiber] 1 each PO DAILY 10/21/17 10/21/17 Previous Rx's Medication Instructions Recorded Albuterol Neb [AccuNeb] 0.63 mg IH Q6H PRN #100 inhsol 10/30/17 Amoxicillin/Clavulanate [Augmentin] 875 mg PO BIDWM #8 tablet 10/30/17 Apixaban [Eliquis] 5 mg PO BID tablet 10/30/17 Furosemide [Lasix] 20 mg PO DAILY #30 tablet 10/30/17 Metoprolol [Lopressor] 25 mg PO BID tablet 10/30/17 predniSONE [PredniSONE] 40 mg PO DAILY #10 tablet 10/30/17 Allergies Allergy/AdvReac Type Severity Reaction Status Date / Time codeine Allergy unsure Verified 03/14/17 13:17 Sulfa (Sulfonamide Allergy Vomiting Verified 03/14/17 13:17 Antibiotics) All systems ED: reviewed and negative except as stated. Constitutional: Denies: fever Cardiovascular: Reports: chest pain. Denies: syncope Respiratory: Reports: cough, dyspnea, hemoptysis Gastrointestinal: Reports: nausea. Denies: abdominal pain, vomiting, diarrhea, hematemesis Past Medical History - Past Medical History Attestation: Yes The following information was validated with the patient. Source: patient Medical history: Reports: arthritis, atrial fibrillation, DVT, hypertension, thyroid disease, other Surgical history: Reports: cataract, cholecystectomy, hysterectomy Psychiatric history: Reports: anxiety - Social History Smoking Status: Never smoker Smokeless Tobacco Status: No Alcohol use: Reports: none Drug use: Reports: none Physical Exam - General Limitations: no limitations General appearance: alert, in distress (Respiratory.) - Head Head exam: atraumatic, normocephalic, normal inspection - Eye Eye exam: Present: normal appearance, PERRL, EOMI. Absent: scleral icterus - ENT ENT exam: other (Soft tissue mass on her soft palate. Posterior oropharynx. Epistaxis both nares.) - Neck Neck exam: Present: normal inspection, trachea midline - Chest Chest inspection: Present: normal inspection - Respiratory Respiratory exam: Present: other (Wet lung sounds throughout) - Cardiovascular Cardiovascular exam: Present: tachycardia, normal heart sounds - Abdominal Exam Abdominal exam: Present: soft, Non-Tender. Absent: tenderness, distention, guarding, rigidity, organomegaly - Extremities Exam Extremities exam: Present: normal inspection, full ROM, normal capillary refill. Absent: tenderness, pedal edema - Back Exam Back exam: Present: normal inspection, full ROM. Absent: tenderness - Neurological Exam Neurological exam: Present: alert, oriented X3 - Psychiatric Psychiatric exam: Present: normal affect, normal mood - Skin Skin exam: Present: warm, dry, intact, normal color Course Course Narrative: Female patient brought in by EMS. She started having chest pain earlier this morning and then started with massive hemoptysis. She does have a history of nosebleeds with the last one on Saturday. She was diagnosed with pneumonia yesterday. She is residing at a snf at this time. Patient was in severe respiratory distress and had wet lung sounds throughout. She was not able to maintain her airway. We did discuss this with the patient that she had a possible reversible cause of her hemoptysis and she was agreeable to intubation at this time. We intubated her with rocuronium and etomidate. We have ordered basic lab workup as well as a CT PE he. We did order factor for however this is not In a adequate amount time as well as CX a 2 [address] on the Rhino Rocket. This also did not come in time to place a Rhino Rocket. Patient was intubated with no difficulty. She did have a large amount of blood in her posterior oropharynx as well as a soft tissue mass to her soft palate. Patient good color change on the color metric device. 2 posterior Rhino Rocket were placed, as well as an OG. Chest x-ray showed good positioning for these as well as pulmonary edema. We will sign out this patient to Dr. Banks and Dr. Anaya. With suggestions of ICU admission. Vital Signs Temperature 97.5 F L 11/13/17 06:13 Pulse Rate 109 11/13/17 06:13 Respiratory Rate 24 11/13/17 06:13 Blood Pressure 186/104 11/13/17 06:13 O2 Sat by Pulse Oximetry 78 11/13/17 06:13 Temperature 97.5 F L 11/13/17 06:13 Pulse Rate 89 11/13/17 07:05 Respiratory Rate 14 11/13/17 06:41 Blood Pressure 117/84 11/13/17 07:05 O2 Sat by Pulse Oximetry 100 11/13/17 07:05 Oxygen Delivery Oxygen Delivery Ventilator Procedures - Intubation Time out performed: No sedative: Etomidate paralytic: Rocuronium Laryngoscope: Rouse ET Tube Size: Oral ET Tube Uncuffed: No Tube Secured Depth (cm): 23 Tube Secured Location: lips Tube Placement Confirmation: visualized tube passing through cords, equal breath sounds bilaterally, no breath sounds over epigastrium, confirmation by capnometry Patient Tolerated Procedure: no complications Intubation Complications: difficult intubation (Large amount of blood in posterior oropharynx.) Medical Decision Making - Medical Records Medical records reviewed: Yes I reviewed the patient's medical records. - Lab Data Lab results reviewed: Yes I reviewed the patient's lab results. Result diagrams: 11/13/17 06:28 11/13/17 06:28 Lab Results 11/13/17 11/13/17 11/13/17 Range/Units 06:28 06:28 06:28 WBC 16.1 H (4.3-11.1) K/mcL RBC 3.69 L (3.82-4.97) M/mcL Hgb 10.5 L (11.5-15.4) g/dL Hct 32.1 L (35.3-44.9) % MCV 87.0 (83.0-100.0) fL MCH 28.5 (28.0-33.3) pg MCHC 32.7 (31.6-35.5) g/dL RDW 15.8 H (11.5-14.5) % Plt Count 344 (140-400) K/mcL MPV 10.1 (9.4-12.4) fL Immature Gran % 0.5 (0-4) % Seg Neutrophils % 68.3 % Lymphocytes % 23.5 % Monocytes % 7.5 % Eosinophils % 0.1 % Basophils % 0.1 % Neutrophils # 11.0 H (1.6-8.9) K/mcL Lymphocytes # 3.8 (0.6-4.6) K/mcL Monocytes # 1.2 (0.0-1.3) K/mcL Eosinophils # 0.0 (0.0-0.6) K/mcL Basophils # 0.0 (0.0-0.2) K/mcL PT 14.7 H (9.4-12.1) Seconds INR 1.4 APTT 27.1 (26.0-36.0) Seconds D-Dimer 244 (0-500) ng/mLFEU Sodium 136 (136-145) mEq/L Potassium 3.6 (3.5-5.1) mEq/L Chloride 100 (98-107) mEq/L Carbon Dioxide 30 H (23-29) mEq/L BUN 22 (8-23) mg/dL Creatinine 0.75 (0.60-1.20) mg/dL Est GFR ( Amer) > 60 (> 60) Est GFR (Non-Af Amer) > 60 (> 60) BUN/Creatinine Ratio 29 H (6-26) Glucose 139 H (70-105) mg/dL Calculated Osmolality 288 (280-300) Lactic Acid (0.5-2.2) mmol/L Calcium 9.1 (8.6-10.3) mg/dL Total Bilirubin 0.5 (0.3-1.0) mg/dL Direct Bilirubin 0.0 (0.0-0.2) mg/dL Indirect Bilirubin 0.5 (0.0-1.2) mg/dL AST 22 (13-39) Units/L ALT 32 (7-52) Units/L Alkaline Phosphatase 41 (34-104) Units/L Creatine Kinase 18 L (30-223) Units/L Troponin I < 0.03 (< 0.04) ng/mL B-Natriuretic Peptide (Less than 100) pg/mL Serum Total Protein 6.0 L (6.4-8.9) g/dL Albumin 3.7 (3.5-5.7) g/dL Globulin 2.3 L (2.4-3.5) g/dL Albumin/Globulin Ratio 1.6 (1.1-2.2) 11/13/1718 Range/Units 06:28 06:28 WBC (4.3-11.1) K/mcL RBC (3.82-4.97) M/mcL Hgb (11.5-15.4) g/dL Hct (35.3-44.9) % MCV (83.0-100.0) fL MCH (28.0-33.3) pg MCHC (31.6-35.5) g/dL RDW (11.5-14.5) % Plt Count (140-400) K/mcL MPV (9.4-12.4) fL Immature Gran % (0-4) % Seg Neutrophils % % Lymphocytes % % Monocytes % % Eosinophils % % Basophils % % Neutrophils # (1.6-8.9) K/mcL Lymphocytes # (0.6-4.6) K/mcL Monocytes # (0.0-1.3) K/mcL Eosinophils # (0.0-0.6) K/mcL Basophils # (0.0-0.2) K/mcL PT (9.4-12.1) Seconds INR APTT (26.0-36.0) Seconds D-Dimer (0-500) ng/mLFEU Sodium (136-145) mEq/L Potassium (3.5-5.1) mEq/L Chloride (98-107) mEq/L Carbon Dioxide (23-29) mEq/L BUN (8-23) mg/dL Creatinine (0.60-1.20) mg/dL Est GFR ( Amer) (> 60) Est GFR (Non-Af Amer) (> 60) BUN/Creatinine Ratio (6-26) Glucose (70-105) mg/dL Calculated Osmolality (280-300) Lactic Acid 1.3 (0.5-2.2) mmol/L Calcium (8.6-10.3) mg/dL Total Bilirubin (0.3-1.0) mg/dL Direct Bilirubin (0.0-0.2) mg/dL Indirect Bilirubin (0.0-1.2) mg/dL AST (13-39) Units/L ALT (7-52) Units/L Alkaline Phosphatase (34-104) Units/L Creatine Kinase (30-223) Units/L Troponin I (< 0.04) ng/mL B-Natriuretic Peptide 439 H (Less than 100) pg/mL Serum Total Protein (6.4-8.9) g/dL Albumin (3.5-5.7) g/dL Globulin (2.4-3.5) g/dL Albumin/Globulin Ratio (1.1-2.2) - Radiology Data Radiology results reviewed: Yes I reviewed the patient's radiology results. Chest X-Ray 11/13/17 06:19 IMPRESSION: Interval intubation. Recommend withdrawal of the endotracheal tube 2-3 cm for optimum positioning. CHF and mild vascular congestion, improved from prior imaging. D/ / Yadiel Welsh MD / Yadiel Welsh MD Interpreting Provider: Yadiel Welsh MD Biju - Biju Situation: Demographics (Chest pain and hemoptysis started this morning at the snf. Epistaxis.) Assessment: Vital Signs (Tachycardic stable blood pressure), Course and respsone to treatment (Intubated, bilateral Rhino Rocket, OG.), Exam Concerns ( Possible soft tissue mass in posterior oropharynx to the soft palate), Pertinant Lab Results, Outstanding Labs (CBCs and CMP PT/INR) Recommendation: Recommendation based on pending studies, treatments, or consults (CTPA pending. And see coming in to see the patient. Recommendation ICU placement.) Biju Report Given to: shaunna banks Repor Time: 07:33
[2017-11-13 06:43] LABS: Basophils % 0.1 %; Eosinophils % 0.1 %; Hematocrit 32.1 % (35.3-44.9); Hemoglobin 10.5 g/dL (11.5-15.4); Immature Granulocytes % 0.5 % (0-4); Lymphocytes # 3.8 K/mcL (0.6-4.6); Lymphocytes % 23.5 %; Mean Corpuscular HGB Conc 32.7 g/dL (31.6-35.5); Mean Corpuscular Hemoglobin 28.5 pg (28.0-33.3); Mean Platelet Volume 10.1 fL (9.4-12.4); Monocytes # 1.2 K/mcL (0.0-1.3); Monocytes % 7.5 %; Platelet Count 344 K/mcL (140-400); Red Blood Count 3.69 M/mcL (3.82-4.97); Red Cell Distribution Width 15.8 % (11.5-14.5); Segmented Neutrophils % 68.3 %
[2017-11-13] MEDS ORDERED: 0.9 % Sodium Chloride 250 ML ONE (06:45)
[2017-11-13 06:49] LABS: INR 1.4; Prothrombin Time 14.7 Seconds (9.4-12.1)
[2017-11-13] MEDS ORDERED: FEIBA (wt based) 1 EACH VIAL IV ONE (06:49)
[2017-11-13 06:51] LABS: Activated Partial Thrombo Time 27.1 Seconds (26.0-36.0)
[2017-11-13] MEDS ORDERED: WATER FOR INJ IV ONE (07:00)
[2017-11-13] MEDS ORDERED: ANTI INHIBITOR COAGULANT COMP IV ONE (07:00)
[2017-11-13 07:06] LABS: Troponin I < 0.03 ng/mL (< 0.04)
[2017-11-13 07:07] LABS: Alanine Aminotransferase 32 Units/L (7-52); Albumin 3.7 g/dL (3.5-5.7); Albumin/Globulin Ratio 1.6 (1.1-2.2); Alkaline Phosphatase 41 Units/L (34-104); Aspartate Amino Transferase 22 Units/L (13-39); BUN/Creatinine Ratio 29 (6-26); Bilirubin,Indirect 0.5 mg/dL (0.0-1.2); Bilirubin,Total 0.5 mg/dL (0.3-1.0); Blood Urea Nitrogen 22 mg/dL (8-23); Calcium 9.1 mg/dL (8.6-10.3); Carbon Dioxide 30 mEq/L (23-29); Chloride 100 mEq/L (98-107); Creatine Kinase 18 Units/L (30-223); Globulin 2.3 g/dL (2.4-3.5); Glucose 139 mg/dL (70-105); Osmolality,Calculated 288 (280-300); Potassium 3.6 mEq/L (3.5-5.1); Sodium 136 mEq/L (136-145); eGFR For African Americans > 60 (> 60); eGFR For Non-African Americans > 60 (> 60)
--- NOTE | 2017-11-13 08:05 | Pulmonology History & Physical ---
<Jailene Menjivarnt - Last Filed: 11/13/17 10:24> Date of Encounter: 11/13/17 Time of Encounter: 08:04 Assessment and Plan (1) Hemoptysis Current visit: Yes Status: Acute Unclear source at this time. Patient was recently started on Eliquis and the fluoroscopy quinolone for pneumonia, which could have contributed to her increased bleeding. Suspecting this is coming from a nosebleed, but pulmonary source cannot be ruled out. Patient was intubated for airway protection and bronchoscopy and BAL is planned within the next hour. We will recheck hemoglobin and BMP at noon to see if her hemoglobin is dropped and to check her electrolytes and renal function. (2) Respiratory failure Current visit: Yes Status: Acute Secondary to massive epistaxis and hemoptysis. Intubated for airway protection and is on ventilator support. Patient will be bronch'd soon and further management will be determined after this. Qualifiers: Chronicity: acute Respiratory failure complication: hypoxia Qualified Code(s): J96.01 - Acute respiratory failure with hypoxia (3) Epistaxis Current visit: Yes Status: Acute ENT was consult that and agreed that the likely source of her hemoptysis was a right-sided epistaxis. She was intubated for airway protection. Bronchoscopy as planned to evaluate for pulmonary source. Bleeding has slowed and the patient's vital signs have remained normal. Further disposition and management will be based on results of the bronchoscopy. ENT did recommend leaving the packing and for the next 4-5 days. Once extubated, they would remove the left- sided nasal packing and reevaluate the right side. History of Present Illness Chief complaint: hemoptysis HPI: Ms. Robbins is a 87 year old female who presented to the emergency department for hemoptysis and epistaxis. Patient was recently started on Eliquis due to A. fib during her recent hospital stay for pneumonia. She was also continued on Levaquin as an outpatient for her pneumonia. She developed a nosebleed this morning that was mainly right-sided, but caused significant bleeding and concern over airway stability. She did report coughing up a lot of blood, but is unclear if this was coming from her nose or from a lung source. She was intubated emergently in the emergency department for concern over airway protection. Bilateral nasal packing was placed with slowing down of her bleeding. ENT was consulted and scope the patient at bedside due to a reported history of a possible mass that was noted during the intubation. ENT states that there is no mass and that this likely was a blood clot. Suspecting the source of her bleeding, most likely is a right-sided nosebleed but it could be coming from the lungs. Patient is intubated and sedated upon examination. She was responsive to pain and did follow some commands and ROS according to family was otherwise negative. Also of note, the patient is a DNR CCA, however, was in her correct frame of mind and after discussing with the family was okay with intubation , since this was likely a temporary problem. Past Med Surg Social Fam HX - Past Medical History Medical history: arthritis, atrial fibrillation, DVT, hypertension, thyroid disease, other Psychiatric history: anxiety - Past Surgical History Surgical History: cataract, cholecystectomy, hysterectomy Additional surgical history: cholecystectomy - Social History Smoking Status: Never smoker Smokeless Tobacco Status: No Alcohol use: none Drug use: none - Family History Mother Hx Family Endocrine Disorder: Yes (DIABETES MELLITUS.) Medications and Allergies Cholecalciferol (Vitamin D3) [Vitamin D3] 1,000 unit PO DAILY 07/20/15 [History] Multivit-Min/FA/Lycopen/Lutein [Centrum Silver Tablet] 1 each PO DAILY 07/20/15 [History] Trihexyphenidyl [Artane] 1 mg PO TID 07/20/15 [History] Amitriptyline [Elavil] 25 mg PO BID 10/21/17 [History] Aspirin [Lo-Dose Aspirin EC] 81 mg PO DAILY 10/21/17 [History] Lactobacillus Acidophilus [Acidophilus Probiotic] 1 mg PO DAILY 10/21/17 [ History] Levothyroxine Sodium [Levoxyl] 75 mcg PO DAILY 10/21/17 [History] Losartan [Cozaar] 50 mg PO QPM 10/21/17 [History] Perphenazine 4 mg PO BID 10/21/17 [History] Wheat Dextrin [Benefiber] 1 each PO DAILY 10/21/17 [History] Albuterol Neb [AccuNeb] 0.63 mg IH Q6H PRN #100 inhsol 10/30/17 [Rx] Apixaban [Eliquis] 5 mg PO BID tablet 10/30/17 [Rx] Furosemide [Lasix] 20 mg PO DAILY #30 tablet 10/30/17 [Rx] Metoprolol [Lopressor] 25 mg PO BID tablet 10/30/17 [Rx] Calcium Carbonate/Vitamin D3 [Calcium 600 + Vit D Tablet] 1 tab PO DAILY [History] Diltiazem HCl [Diltiazem 24Hr Cd] 240 mg PO QAM 11/13/17 [History] Gabapentin [Neurontin] 600 mg PO HS 11/13/17 [History] Levofloxacin [Levaquin] 500 mg PO DAILY 11/13/17 [History] Omeprazole [PriLOSEC] 20 mg PO DAILY 11/13/17 [History] Potassium Chloride [Klor-Con 10] 10 meq PO DAILY 11/13/17 [History] 3 Allergy/AdvReac Type Severity Reaction Status Date / Time codeine Allergy unsure Verified 03/14/17 13:17 Sulfa (Sulfonamide Allergy Vomiting Verified 03/14/17 13:17 Antibiotics) ROS unobtainable: due to endotracheal tube All Systems: The remainder of the systems were reviewed and are negative Review of Systems: As reviewed in the HPI. All other systems reviewed are negative or normal. Physical Examination Vital Signs: Vital Signs, Last 4 Hours Temp Pulse Resp BP Pulse Ox 11/13/17 07:05 89 117/84 100 11/13/17 06:41 14 161/121 100 11/13/17 06:13 97.5 F L 109 24 186/104 78 General appearance: appears uncomfortable, other (Intubated) Eyes: nonicteric ENT: oropharynx moist, epistaxis (Bilateral nasal packing, soaking through on the right, ET tube with trace bloody secretions) Neck: supple, no lymphadenopathy, no JVD Effort: other (Ventilator initiated) Auscultation: bilateral: rales Cardiovascular: regular rate and rhythm Gastrointestinal: normoactive bowel sounds, soft, non-distended Integumentary: normal Extremities: no cyanosis, no clubbing Musculoskeletal: no deformities, ROM normal pupils equal and round, unable to assess due to mental status Results - Laboratory Findings CBC and BMP: 11/13/17 06:28 11/13/17 06:28 PT/INR, D-dimer PT 14.7 Seconds (9.4-12.1) H 11/13/17 06:28 D-Dimer 244 ng/mLFEU (0-500) 11/13/17 06:28 Abnormal lab findings: Abnormal lab results WBC 16.1 K/mcL (4.3-11.1) H 11/13/17 06:28 RBC 3.69 M/mcL (3.82-4.97) L 11/13/17 06:28 Hgb 10.5 g/dL (11.5-15.4) L 11/13/17 06:28 Hct 32.1 % (35.3-44.9) L 11/13/17 06:28 RDW 15.8 % (11.5-14.5) H 11/13/17 06:28 Neutrophils # 11.0 K/mcL (1.6-8.9) H 11/13/17 06:28 PT 14.7 Seconds (9.4-12.1) H 11/13/17 06:28 Carbon Dioxide 30 mEq/L (23-29) H 11/13/17 06:28 BUN/Creatinine Ratio 29 (6-26) H 11/13/17 06:28 Glucose 139 mg/dL (70-105) H 11/13/17 06:28 Creatine Kinase 18 Units/L (30-223) L 11/13/17 06:28 B-Natriuretic Peptide 439 pg/mL (Less than 100) H 11/13/17 06:28 Serum Total Protein 6.0 g/dL (6.4-8.9) L 11/13/17 06:28 Globulin 2.3 g/dL (2.4-3.5) L 11/13/17 06:28 <Grace Bianchi M - Last Filed: 11/13/17 14:55> Date of Encounter: 11/13/17 History of Present Illness HPI: Ms. Robbins is a 87 year old female All Systems: The remainder of the systems were reviewed and are negative Physical Examination Vital Signs: Vital Signs, Last 4 Hours Temp Pulse Resp BP Pulse Ox 11/13/17 14:00 98.9 F 85 14 148/103 100 11/13/17 13:30 98.9 F 92 14 154/94 100 Results - Laboratory Findings CBC and BMP: 11/13/17 12:03 11/13/17 12:03 ABG ABG pH 7.50 pH Units (7.32-7.45) H 11/13/17 10:14 ABG pCO2 38 mmHg (35-45) 11/13/17 10:14 ABG pO2 341 mmHg (85-104) H 11/13/17 10:14 ABG O2 Saturation 100 % (95-98) H 11/13/17 10:14 PT/INR, D-dimer PT 14.7 Seconds (9.4-12.1) H 11/13/17 06:28 D-Dimer 244 ng/mLFEU (0-500) 11/13/17 06:28 Abnormal lab findings: Abnormal lab results WBC 24.6 K/mcL (4.3-11.1) H D 11/13/17 12:03 RBC 3.31 M/mcL (3.82-4.97) L 11/13/17 12:03 Hgb 9.5 g/dL (11.5-15.4) L 11/13/17 12:03 Hct 28.9 % (35.3-44.9) L 11/13/17 12:03 RDW 15.9 % (11.5-14.5) H 11/13/17 12:03 Neutrophils # 17.7 K/mcL (1.6-8.9) H 11/13/17 12:03 Lymphocytes # 4.7 K/mcL (0.6-4.6) H 11/13/17 12:03 Monocytes # 1.9 K/mcL (0.0-1.3) H 11/13/17 12:03 PT 14.7 Seconds (9.4-12.1) H 11/13/17 06:28 ABG pH 7.50 pH Units (7.32-7.45) H 11/13/17 10:14 ABG pO2 341 mmHg (85-104) H 11/13/17 10:14 ABG HCO3 30 mEq/L (21-27) H 11/13/17 10:14 ABG Total CO2 31 mEq/L (20-26) H 11/13/17 10:14 ABG O2 Saturation 100 % (95-98) H 11/13/17 10:14 ABG Base Excess 6 mEq/L (-2 to 3) H 11/13/17 10:14 BUN 26 mg/dL (8-23) H 11/13/17 12:03 BUN/Creatinine Ratio 35 (6-26) H 11/13/17 12:03 Creatine Kinase 18 Units/L (30-223) L 11/13/17 06:28 B-Natriuretic Peptide 439 pg/mL (Less than 100) H 11/13/17 06:28 Serum Total Protein 6.0 g/dL (6.4-8.9) L 11/13/17 06:28 Globulin 2.3 g/dL (2.4-3.5) L 11/13/17 06:28 - Attending Attestation I examined this patient and my medical decision-making was reviewed with the Resident Physician. I agree with the documented findings, disposition and treatment plan as described except to the extent set forth below. Patient seen and examined. I was called by the emergency room physician to evaluate this patient secondary to major hemoptysis. Discussed with the family at the bedside since patient was already intubated mainly for airway protection and cannot give any history. Labs, radiology, chart personally reviewed. Agree with resident's history and physical, assessment, plan with following comments: DEPARTMENT MANAGER: Patient does not follows commands, sedation started in ICU with propofol for the vent synchrony. Pulmonary: Acceptable oxygenation and ventilation. ABG ordered and reviewed which is acceptable and continue invasive mechanical ventilation for now mainly for airway protection and discussed with the family about bronchoscopy to rule out any pulmonary hemorrhage which could be found in patient on anticoagulation. However I suspect this is mainly upper airway source and ENT has been consulted. Cardiovascular: Relatively stable GI: Nutrition per dietary and GI prophylaxis per routine Heme: DVT prophylaxis per routine. Monitoring H&H and blood transfusion as needed. ID: Empiric coverage May needed. Renal; urine out put and renal funtion reviewed Endorcine: blood glucose is monitored Lines: all lines checked and no evidence of infections Skin: skin care to prevent pressure ulcers per nursing routine care I spent 35 min of Critical Care time with this patient. It involved decision making of high complexity to assess, manipulate, and support vital organ system failure and/or to prevent further life threatening deterioration of the patient' s condition. The time involved in the performance of separately reportable procedures was not counted toward critical care time.
--- NOTE | 2017-11-13 08:24 | Emergency Department Note ---
Disposition Clinical Impression: Hemoptysis, Epistaxis Respiratory failure Qualifiers: Chronicity: acute Respiratory failure complication: hypoxia Qualified Code(s): J96.01 - Acute respiratory failure with hypoxia Disposition: Admitted As Inpatient Condition: Fair Referrals: Danette Real CNP [Primary Care Provider] - Forms: ED Satisfaction Letter General Adult HPI - General Chief complaint: ED Shortness of Breath/Dyspnea Stated complaint: nose bleed Time Seen by Provider: 11/13/17 06:18 Source: patient, EMS Limitations: no limitations - History of Present Illness Pain Scale: 0 - Related Data Home Medications Medication Instructions Recorded Confirmed Cholecalciferol (Vitamin D3) 1,000 unit PO DAILY 07/20/15 11/13/17 [Vitamin D3] Multivit-Min/FA/Lycopen/Lutein 1 each PO DAILY 07/20/15 11/13/17 [Centrum Silver Tablet] Trihexyphenidyl [Artane] 1 mg PO TID 07/20/15 11/13/17 Amitriptyline [Elavil] 25 mg PO BID 10/21/17 11/13/17 Aspirin [Lo-Dose Aspirin EC] 81 mg PO DAILY 10/21/17 11/13/17 Lactobacillus Acidophilus 1 mg PO DAILY 10/21/17 11/13/17 [Acidophilus Probiotic] Levothyroxine Sodium [Levoxyl] 75 mcg PO DAILY 10/21/17 11/13/17 Losartan [Cozaar] 50 mg PO QPM 10/21/17 11/13/17 Perphenazine 4 mg PO BID 10/21/17 11/13/17 Wheat Dextrin [Benefiber] 1 each PO DAILY 10/21/17 11/13/17 Calcium Carbonate/Vitamin D3 1 tab PO DAILY 11/13/17 11/13/17 [Calcium 600 + Vit D Tablet] Diltiazem HCl [Diltiazem 24Hr Cd] 240 mg PO QAM 11/13/17 11/13/17 Gabapentin [Neurontin] 600 mg PO HS 11/13/17 11/13/17 Levofloxacin [Levaquin] 500 mg PO DAILY 11/13/17 11/13/17 Omeprazole [PriLOSEC] 20 mg PO DAILY 11/13/17 11/13/17 Potassium Chloride [Klor-Con 10] 10 meq PO DAILY 11/13/17 11/13/17 Previous Rx's Medication Instructions Recorded Albuterol Neb [AccuNeb] 0.63 mg IH Q6H PRN #100 inhsol 10/30/17 Apixaban [Eliquis] 5 mg PO BID tablet 10/30/17 Furosemide [Lasix] 20 mg PO DAILY #30 tablet 10/30/17 Metoprolol [Lopressor] 25 mg PO BID tablet 10/30/17 Allergies Allergy/AdvReac Type Severity Reaction Status Date / Time codeine Allergy unsure Verified 03/14/17 13:17 Sulfa (Sulfonamide Allergy Vomiting Verified 03/14/17 13:17 Antibiotics) Constitutional: Denies: fever Cardiovascular: Reports: chest pain. Denies: syncope Respiratory: Reports: cough, dyspnea, hemoptysis Gastrointestinal: Reports: nausea. Denies: abdominal pain, vomiting, diarrhea, hematemesis Past Medical History - Past Medical History Medical history: Reports: arthritis, atrial fibrillation, DVT, hypertension, thyroid disease, other Surgical history: Reports: cataract, cholecystectomy, hysterectomy Psychiatric history: Reports: anxiety - Social History Smoking Status: Never smoker Smokeless Tobacco Status: No Alcohol use: Reports: none Drug use: Reports: none Physical Exam - General Limitations: no limitations General appearance: alert, in distress (Respiratory.) Course Vital Signs Temperature 97.5 F L 11/13/17 06:13 Pulse Rate 109 11/13/17 06:13 Respiratory Rate 24 11/13/17 06:13 Blood Pressure 186/104 11/13/17 06:13 O2 Sat by Pulse Oximetry 78 11/13/17 06:13 Temperature 97.5 F L 11/13/17 06:13 Pulse Rate 73 11/13/17 11:11 Respiratory Rate 14 11/13/17 11:11 Blood Pressure 151/99 11/13/17 11:11 O2 Sat by Pulse Oximetry 100 11/13/17 11:11 Oxygen Delivery Oxygen Delivery Ventilator Medical Decision Making - Lab Data Result diagrams: 11/13/17 06:28 11/13/17 06:28 Lab Results 11/13/17 11/13/17 11/13/17 Range/Units 06:28 06:28 06:28 WBC 16.1 H (4.3-11.1) K/mcL RBC 3.69 L (3.82-4.97) M/mcL Hgb 10.5 L (11.5-15.4) g/dL Hct 32.1 L (35.3-44.9) % MCV 87.0 (83.0-100.0) fL MCH 28.5 (28.0-33.3) pg MCHC 32.7 (31.6-35.5) g/dL RDW 15.8 H (11.5-14.5) % Plt Count 344 (140-400) K/mcL MPV 10.1 (9.4-12.4) fL Immature Gran % 0.5 (0-4) % Seg Neutrophils % 68.3 % Lymphocytes % 23.5 % Monocytes % 7.5 % Eosinophils % 0.1 % Basophils % 0.1 % Neutrophils # 11.0 H (1.6-8.9) K/mcL Lymphocytes # 3.8 (0.6-4.6) K/mcL Monocytes # 1.2 (0.0-1.3) K/mcL Eosinophils # 0.0 (0.0-0.6) K/mcL Basophils # 0.0 (0.0-0.2) K/mcL PT 14.7 H (9.4-12.1) Seconds INR 1.4 APTT 27.1 (26.0-36.0) Seconds D-Dimer 244 (0-500) ng/mLFEU ABG pH (7.32-7.45) pH Units ABG pCO2 (35-45) mmHg ABG pO2 (85-104) mmHg ABG HCO3 (21-27) mEq/L ABG Total CO2 (20-26) mEq/L ABG O2 Saturation (95-98) % ABG Base Excess (-2 to 3) mEq/L Eleuterio Test Respiration Rate O2 Delivery Device Blood Gas Modality Inspired O2 (1-15=lpm [id number]=%) Tidal Volume cc PEEP cm H2O Sodium 136 (136-145) mEq/L Potassium 3.6 (3.5-5.1) mEq/L Chloride 100 (98-107) mEq/L Carbon Dioxide 30 H (23-29) mEq/L BUN 22 (8-23) mg/dL Creatinine 0.75 (0.60-1.20) mg/dL Est GFR ( Amer) > 60 (> 60) Est GFR (Non-Af Amer) > 60 (> 60) BUN/Creatinine Ratio 29 H (6-26) Glucose 139 H (70-105) mg/dL Calculated Osmolality 288 (280-300) Lactic Acid (0.5-2.2) mmol/L Calcium 9.1 (8.6-10.3) mg/dL Total Bilirubin 0.5 (0.3-1.0) mg/dL Direct Bilirubin 0.0 (0.0-0.2) mg/dL Indirect Bilirubin 0.5 (0.0-1.2) mg/dL AST 22 (13-39) Units/L ALT 32 (7-52) Units/L Alkaline Phosphatase 41 (34-104) Units/L Creatine Kinase 18 L (30-223) Units/L Troponin I < 0.03 (< 0.04) ng/mL B-Natriuretic Peptide (Less than 100) pg/mL Serum Total Protein 6.0 L (6.4-8.9) g/dL Albumin 3.7 (3.5-5.7) g/dL Globulin 2.3 L (2.4-3.5) g/dL Albumin/Globulin Ratio 1.6 (1.1-2.2) Blood Type Antibody Screen 11/13/1718 11/13/17 Range/Units 06:28 06:28 07:06 WBC (4.3-11.1) K/mcL RBC (3.82-4.97) M/mcL Hgb (11.5-15.4) g/dL Hct (35.3-44.9) % MCV (83.0-100.0) fL MCH (28.0-33.3) pg MCHC (31.6-35.5) g/dL RDW (11.5-14.5) % Plt Count (140-400) K/mcL MPV (9.4-12.4) fL Immature Gran % (0-4) % Seg Neutrophils % % Lymphocytes % % Monocytes % % Eosinophils % % Basophils % % Neutrophils # (1.6-8.9) K/mcL Lymphocytes # (0.6-4.6) K/mcL Monocytes # (0.0-1.3) K/mcL Eosinophils # (0.0-0.6) K/mcL Basophils # (0.0-0.2) K/mcL PT (9.4-12.1) Seconds INR APTT (26.0-36.0) Seconds D-Dimer (0-500) ng/mLFEU ABG pH (7.32-7.45) pH Units ABG pCO2 (35-45) mmHg ABG pO2 (85-104) mmHg ABG HCO3 (21-27) mEq/L ABG Total CO2 (20-26) mEq/L ABG O2 Saturation (95-98) % ABG Base Excess (-2 to 3) mEq/L Eleuterio Test Respiration Rate O2 Delivery Device Blood Gas Modality Inspired O2 (1-15=lpm [id number]=%) Tidal Volume cc PEEP cm H2O Sodium (136-145) mEq/L Potassium (3.5-5.1) mEq/L Chloride (98-107) mEq/L Carbon Dioxide (23-29) mEq/L BUN (8-23) mg/dL Creatinine (0.60-1.20) mg/dL Est GFR ( Amer) (> 60) Est GFR (Non-Af Amer) (> 60) BUN/Creatinine Ratio (6-26) Glucose (70-105) mg/dL Calculated Osmolality (280-300) Lactic Acid 1.3 (0.5-2.2) mmol/L Calcium (8.6-10.3) mg/dL Total Bilirubin (0.3-1.0) mg/dL Direct Bilirubin (0.0-0.2) mg/dL Indirect Bilirubin (0.0-1.2) mg/dL AST (13-39) Units/L ALT (7-52) Units/L Alkaline Phosphatase (34-104) Units/L Creatine Kinase (30-223) Units/L Troponin I (< 0.04) ng/mL B-Natriuretic Peptide 439 H (Less than 100) pg/mL Serum Total Protein (6.4-8.9) g/dL Albumin (3.5-5.7) g/dL Globulin (2.4-3.5) g/dL Albumin/Globulin Ratio (1.1-2.2) Blood Type O POSITIVE Antibody Screen NEGATIVE 11/13/17 Range/Units 10:14 WBC (4.3-11.1) K/mcL RBC (3.82-4.97) M/mcL Hgb (11.5-15.4) g/dL Hct (35.3-44.9) % MCV (83.0-100.0) fL MCH (28.0-33.3) pg MCHC (31.6-35.5) g/dL RDW (11.5-14.5) % Plt Count (140-400) K/mcL MPV (9.4-12.4) fL Immature Gran % (0-4) % Seg Neutrophils % % Lymphocytes % % Monocytes % % Eosinophils % % Basophils % % Neutrophils # (1.6-8.9) K/mcL Lymphocytes # (0.6-4.6) K/mcL Monocytes # (0.0-1.3) K/mcL Eosinophils # (0.0-0.6) K/mcL Basophils # (0.0-0.2) K/mcL PT (9.4-12.1) Seconds INR APTT (26.0-36.0) Seconds D-Dimer (0-500) ng/mLFEU ABG pH 7.50 H (7.32-7.45) pH Units ABG pCO2 38 (35-45) mmHg ABG pO2 341 H (85-104) mmHg ABG HCO3 30 H (21-27) mEq/L ABG Total CO2 31 H (20-26) mEq/L ABG O2 Saturation 100 H (95-98) % ABG Base Excess 6 H (-2 to 3) mEq/L Eleuterio Test N/A Respiration Rate 14 O2 Delivery Device Adult Vent Blood Gas Modality ASSIST CONTROL Inspired O2 70.0 (1-15=lpm [id number]=%) Tidal Volume 450 cc PEEP 5 cm H2O Sodium (136-145) mEq/L Potassium (3.5-5.1) mEq/L Chloride (98-107) mEq/L Carbon Dioxide (23-29) mEq/L BUN (8-23) mg/dL Creatinine (0.60-1.20) mg/dL Est GFR ( Amer) (> 60) Est GFR (Non-Af Amer) (> 60) BUN/Creatinine Ratio (6-26) Glucose (70-105) mg/dL Calculated Osmolality (280-300) Lactic Acid (0.5-2.2) mmol/L Calcium (8.6-10.3) mg/dL Total Bilirubin (0.3-1.0) mg/dL Direct Bilirubin (0.0-0.2) mg/dL Indirect Bilirubin (0.0-1.2) mg/dL AST (13-39) Units/L ALT (7-52) Units/L Alkaline Phosphatase (34-104) Units/L Creatine Kinase (30-223) Units/L Troponin I (< 0.04) ng/mL B-Natriuretic Peptide (Less than 100) pg/mL Serum Total Protein (6.4-8.9) g/dL Albumin (3.5-5.7) g/dL Globulin (2.4-3.5) g/dL Albumin/Globulin Ratio (1.1-2.2) Blood Type Antibody Screen Critical Care Time Critical Care Time: Yes Total Critical Care Time: 35 Attestation: Critical care performed: Time is exclusive of separately billable procedures. Time includes: direct patient care, patient reassessment, coordination of patient care, interpretation of data (laboratory data, radiology data, and respiratory data), review of patient's medical records, medical consultation and documentation of patient care. Procedures included in critical care time: Procedures excluded from critical care time: Attestation Statement - Attestation Attestation: I examined this patient and my medical decision-making was reviewed with the Resident Physician. I agree with the documented findings, disposition and treatment plan as described except to the extent set forth below. Patient signed out test pending pulmonology consult and admission. Patient arrived during the night distress with copious amount of bleeding. When a rock with replace an ENT as in consult. She has been given TXA and PCC. Intensive care physicians at bedside. Admitted to ICU. ET tube pulled back by respiratory therapy following CT scan. Chest CTA 11/13/17 06:19 IMPRESSION: 1. No evidence of pulmonary embolism or acute pulmonary abnormality. 2. Right main bronchus intubation retraction approximately 3.5-4 cm is suggested for more optimal positioning. 3. Multifocal consolidations and ground-glass and tree-in-bud densities throughout the lungs, as above, is concerning for multifocal pneumonitis, possibly aspiration type given the mucus plugs in the bilateral lower lobes. 4. Small right and trace left pleural effusions. 5. Critical results were called by Dr. Nils Cruz to Donald Whatley on 11/13/2017 at 08:08. D/ / Nils Cruz / Nils Cruz Interpreting Provider: Nils Cruz Chest X-Ray 11/13/17 07:54 IMPRESSION: 1. The endotracheal tube is within the proximal right mainstem bronchus. Retraction by approximately 2 cm and reimaging is recommended. 2. Small left pleural effusion with overlying atelectasis versus pneumonia. Results of this examination were verbally communicated to the patient's nurse, Gabrielle Sen, at 8:28 a.m. on 11/13/2017. D/ / Nils García MD / Nils García MD Interpreting Provider: Nils García MD
[2017-11-13] MEDS ORDERED: *HR* Vecuronium 10 MG VIAL IVP ONE (09:05)
[2017-11-13] MEDS ORDERED: *HR* Midazolam HCl 2 MG/2 ML VIAL IVP ONE ×2 (09:05→10:40)
--- NOTE | 2017-11-13 09:18 | ENT - Consult Note ---
Date of Encounter: 11/13/17 Time of Encounter: 09:16 Assessment and Plan (1) Epistaxis Current Visit: Yes Status: Acute Likely source of bleeding based on right rhinorocket soaked in blood and lack of other source identified on my exam. Good oral exam and flexible oral scope exam did not show any source of bleeding from oral cavity to supraglottic larynx. -Would agree with BAL to eval lungs as source of hemoptysis and remove aspirated clot, blood, mucus. -Assuming nasal source for bleeding. Would recommend to leave nasal packs in place for 4-5 days. Will remove left pack first once extubated. -May need to consider risk benefit of Eliquis with A fib in the future. (2) Hemoptysis Current Visit: Yes Status: Acute (3) Respiratory failure Current Visit: Yes Status: Acute Intubated in ICU for airway protection -Agree with BAL then wean and extubate as able per ICU team. Qualifiers: Chronicity: acute Respiratory failure complication: hypoxia Qualified Code(s): J96.01 - Acute respiratory failure with hypoxia (4) A-fib Current Visit: No Status: Acute Qualifiers: Atrial fibrillation type: unspecified Qualified Code(s): I48.91 - Unspecified atrial fibrillation History of Present Illness Reason for ENT Consult: epistaxis History of present illness: Pt is a 87 yo female with A fib and Eliquis use presenting to the ED with hemoptysis, likely epistaxis, and concern for aspiration. She was intubated in the ED for airway protection and had bilateral nasal balloon packs placed with control of most of her bleeding. ENT is consulted to come eval source of bleed. Family was present at bedside and stated she has had one recent nose bleed while on Eliquis that was not severe but did last for days. Denies other recent nasal trauma or hx of nasal surgery. Past Med Surg Social Fam HX - Past Medical History Medical history: arthritis, atrial fibrillation, DVT, hypertension, thyroid disease, other Psychiatric history: anxiety - Past Surgical History Surgical History: cataract, cholecystectomy, hysterectomy Additional surgical history: cholecystectomy - Social History Smoking Status: Never smoker Smokeless Tobacco Status: No Alcohol use: none Drug use: none - Family History Mother Hx Family Endocrine Disorder: Yes (DIABETES MELLITUS.) Medications and Allergies Calcium Carbonate/Vitamin D3 [Calcium 600 + D Tablet] 1 each PO DAILY 01/30/15 [ History] Diltiazem CD (24hr) [Cardizem CD] 240 mg PO QAM 01/30/15 [History] Gabapentin [Neurontin] 600 mg PO HS 01/30/15 [History] Omeprazole [PriLOSEC] 20 mg PO DAILY 01/30/15 [History] Cholecalciferol (Vitamin D3) [Vitamin D3] 1,000 unit PO DAILY 07/20/15 [History] Multivit-Min/FA/Lycopen/Lutein [Centrum Silver Tablet] 1 each PO DAILY 07/20/15 [History] Trihexyphenidyl [Artane] 1 mg PO TID 07/20/15 [History] Amitriptyline [Elavil] 25 mg PO BID 10/21/17 [History] Aspirin [Lo-Dose Aspirin EC] 81 mg PO DAILY 10/21/17 [History] Lactobacillus Acidophilus [Acidophilus Probiotic] 1 mg PO DAILY 10/21/17 [ History] Levothyroxine Sodium [Levoxyl] 75 mcg PO DAILY 10/21/17 [History] Losartan [Cozaar] 50 mg PO QPM 10/21/17 [History] Perphenazine 4 mg PO BID 10/21/17 [History] Wheat Dextrin [Benefiber] 1 each PO DAILY 10/21/17 [History] Albuterol Neb [AccuNeb] 0.63 mg IH Q6H PRN #100 inhsol 10/30/17 [Rx] Amoxicillin/Clavulanate [Augmentin] 875 mg PO BIDWM #8 tablet 10/30/17 [Rx] Apixaban [Eliquis] 5 mg PO BID tablet 10/30/17 [Rx] Furosemide [Lasix] 20 mg PO DAILY #30 tablet 10/30/17 [Rx] Metoprolol [Lopressor] 25 mg PO BID tablet 10/30/17 [Rx] predniSONE [PredniSONE] 40 mg PO DAILY #10 tablet 10/30/17 [Rx] 3 Allergy/AdvReac Type Severity Reaction Status Date / Time codeine Allergy unsure Verified 03/14/17 13:17 Sulfa (Sulfonamide Allergy Vomiting Verified 03/14/17 13:17 Antibiotics) ENT - ROS ROS unobtainable: due to endotracheal tube ENT Exam Initial Vital Signs Temp Pulse Resp BP Pulse Ox 97.5 F L 109 24 186/104 78 06/06/18 06:13 11/13/17 06:13 11/13/17 06:13 11/13/17 06:13 11/13/17 06:13 - General physical appearance other (intubated in ICU. Responsive to stimulus during exam. ) - ENT Other (bilateral rhinorocket packs. Right side soaked in blood, left side clean. Oral exam showed copiuous clot that was removed. No other source of bleeding noted from oropharynx or base of tongue area. No mass or tumor noted. ) - Neck other (no lymhadenopathy) - Respiratory other (intuabted in ICU) - Integumentary no rash - Neurologic other (responsive to stimulus with FROM of upper extremities. ) - Additional Findings Flexible laryngoscopy exam: A flexible scope was advanced orally. I was able to get to the supraglottic laryngeal structures which did not show any evidence of disease or bleeding source. OP and BOT exam was also normal. Unable to retroflex to exam the nasopharynx. Difficult exam due to thin blood and oral ET and OG tubes. Overall, no source of bleeding identified distal to the nose. Exam Initial Vital Signs Temp Pulse Resp BP Pulse Ox 97.5 F L 109 24 186/104 78 11/13/17 06:13 11/13/17 06:13 11/13/17 06:13 11/13/17 06:13 11/13/17 06:13 Results - Labs 11/13/17 06:28 11/13/17 06:28 Abnormal lab results WBC 16.1 K/mcL (4.3-11.1) H 11/13/17 06:28 RBC 3.69 M/mcL (3.82-4.97) L 11/13/17 06:28 Hgb 10.5 g/dL (11.5-15.4) L 11/13/17 06:28 Hct 32.1 % (35.3-44.9) L 11/13/17 06:28 RDW 15.8 % (11.5-14.5) H 11/13/17 06:28 Neutrophils # 11.0 K/mcL (1.6-8.9) H 11/13/17 06:28 PT 14.7 Seconds (9.4-12.1) H 06/06/18 06:28 Carbon Dioxide 30 mEq/L (23-29) H 11/13/17 06:28 BUN/Creatinine Ratio 29 (6-26) H 11/13/17 06:28 Glucose 139 mg/dL (70-105) H 11/13/17 06:28 Creatine Kinase 18 Units/L (30-223) L 11/13/17 06:28 B-Natriuretic Peptide 439 pg/mL (Less than 100) H 11/13/17 06:28 Serum Total Protein 6.0 g/dL (6.4-8.9) L 11/13/17 06:28 Globulin 2.3 g/dL (2.4-3.5) L 11/13/17 06:28 Diabetes panel 11/13/17 Range/Units 06:28 Sodium 136 (136-145) mEq/L Potassium 3.6 (3.5-5.1) mEq/L Chloride 100 (98-107) mEq/L Carbon Dioxide 30 H (23-29) mEq/L BUN 22 (8-23) mg/dL Creatinine 0.75 (0.60-1.20) mg/dL Glucose 139 H (70-105) mg/dL Calcium 9.1 (8.6-10.3) mg/dL AST 22 (13-39) Units/L ALT 32 (7-52) Units/L Alkaline Phosphatase 41 (34-104) Units/L Albumin 3.7 (3.5-5.7) g/dL Calcium panel 11/13/17 Range/Units 06:28 Calcium 9.1 (8.6-10.3) mg/dL Albumin 3.7 (3.5-5.7) g/dL Pituitary panel 11/13/17 Range/Units 06:28 Sodium 136 (136-145) mEq/L Potassium 3.6 (3.5-5.1) mEq/L Chloride 100 (98-107) mEq/L Carbon Dioxide 30 H (23-29) mEq/L BUN 22 (8-23) mg/dL Creatinine 0.75 (0.60-1.20) mg/dL Glucose 139 H (70-105) mg/dL Calcium 9.1 (8.6-10.3) mg/dL Adrenal panel 11/13/17 Range/Units 06:28 Sodium 136 (136-145) mEq/L Potassium 3.6 (3.5-5.1) mEq/L Chloride 100 (98-107) mEq/L Carbon Dioxide 30 H (23-29) mEq/L BUN 22 (8-23) mg/dL Creatinine 0.75 (0.60-1.20) mg/dL Glucose 139 H (70-105) mg/dL Calcium 9.1 (8.6-10.3) mg/dL Total Bilirubin 0.5 (0.3-1.0) mg/dL AST 22 (13-39) Units/L ALT 32 (7-52) Units/L Alkaline Phosphatase 41 (34-104) Units/L Albumin 3.7 (3.5-5.7) g/dL All other labs normal. Consult Discharge Plan - Plan Referrals: Danette Real, RESEARCH COMPUTING SPECIALIST [Primary Care Provider] -
[2017-11-13] MEDS ORDERED: Naloxone 0.4 MG/ML INJ IVP PRN (09:46)
[2017-11-13] MEDS ORDERED: Albuterol Neb 0.63 MG/3 ML VIAL IH PRN (09:51)
[2017-11-13 10:23] LABS: ABG Base Excess 6 mEq/L (-2 to 3); ABG HCO3 30 mEq/L (21-27); ABG Oxygen Saturation 100 % (95-98); ABG PCO2 38 mmHg (35-45); ABG PO2 341 mmHg (85-104); ABG TCO2 31 mEq/L (20-26); Blood Gas Modality ASSIST CONTROL; Blood Gas PEEP 5 cm H2O; Blood Gas Respiration Rate 14; Blood Gas VT 450 cc
[2017-11-13] MEDS ORDERED: Lacri-Lube 3.5 GM TUBE BOTH EYES PRN (10:34)
--- NOTE | 2017-11-13 12:05 | Emergency Department Note ---
Disposition Clinical Impression: Hemoptysis, Epistaxis Respiratory failure Qualifiers: Chronicity: acute Respiratory failure complication: hypoxia Qualified Code(s): J96.01 - Acute respiratory failure with hypoxia Disposition: Still a Patient Condition: Fair Referrals: Danette Real CNP [Primary Care Provider] - Forms: ED Satisfaction Letter General Adult HPI - General Chief complaint: ED Shortness of Breath/Dyspnea Stated complaint: nose bleed Time Seen by Provider: 11/13/17 06:18 Source: patient, EMS Limitations: no limitations - History of Present Illness Pain Scale: 0 - Related Data Home Medications Medication Instructions Recorded Confirmed Cholecalciferol (Vitamin D3) 1,000 unit PO DAILY 07/20/15 11/13/17 [Vitamin D3] Multivit-Min/FA/Lycopen/Lutein 1 each PO DAILY 07/20/15 11/13/17 [Centrum Silver Tablet] Trihexyphenidyl [Artane] 1 mg PO TID 07/20/15 11/13/17 Amitriptyline [Elavil] 25 mg PO BID 10/21/17 11/13/17 Aspirin [Lo-Dose Aspirin EC] 81 mg PO DAILY 10/21/17 11/13/17 Lactobacillus Acidophilus 1 mg PO DAILY 10/21/17 11/13/17 [Acidophilus Probiotic] Levothyroxine Sodium [Levoxyl] 75 mcg PO DAILY 10/21/17 11/13/17 Losartan [Cozaar] 50 mg PO QPM 10/21/17 11/13/17 Perphenazine 4 mg PO BID 10/21/17 11/13/17 Wheat Dextrin [Benefiber] 1 each PO DAILY 10/21/17 11/13/17 Calcium Carbonate/Vitamin D3 1 tab PO DAILY 11/13/17 11/13/17 [Calcium 600 + Vit D Tablet] Diltiazem HCl [Diltiazem 24Hr Cd] 240 mg PO QAM 11/13/17 11/13/17 Gabapentin [Neurontin] 600 mg PO HS 11/13/17 11/13/17 Levofloxacin [Levaquin] 500 mg PO DAILY 11/13/17 11/13/17 Omeprazole [PriLOSEC] 20 mg PO DAILY 11/13/17 11/13/17 Potassium Chloride [Klor-Con 10] 10 meq PO DAILY 11/13/17 11/13/17 Previous Rx's Medication Instructions Recorded Albuterol Neb [AccuNeb] 0.63 mg IH Q6H PRN #100 inhsol 10/30/17 Apixaban [Eliquis] 5 mg PO BID tablet 10/30/17 Furosemide [Lasix] 20 mg PO DAILY #30 tablet 10/30/17 Metoprolol [Lopressor] 25 mg PO BID tablet 10/30/17 Allergies Allergy/AdvReac Type Severity Reaction Status Date / Time codeine Allergy unsure Verified 03/14/17 13:17 Sulfa (Sulfonamide Allergy Vomiting Verified 03/14/17 13:17 Antibiotics) Constitutional: Denies: fever Cardiovascular: Reports: chest pain. Denies: syncope Respiratory: Reports: cough, dyspnea, hemoptysis Gastrointestinal: Reports: nausea. Denies: abdominal pain, vomiting, diarrhea, hematemesis Past Medical History - Past Medical History Medical history: Reports: arthritis, atrial fibrillation, DVT, hypertension, thyroid disease, other Surgical history: Reports: cataract, cholecystectomy, hysterectomy Psychiatric history: Reports: anxiety - Social History Smoking Status: Never smoker Smokeless Tobacco Status: No Alcohol use: Reports: none Drug use: Reports: none Physical Exam - General Limitations: no limitations General appearance: alert, in distress (Respiratory.) Course Course Narrative: Care was signed out from Dr. Matson, please see her documentation for history physical exam, briefly the patient had massive hemoptysis and is on Eliquis for atrial fibrillation newly started a week ago, her airway was secured due to concern for aspiration risk, CTA was obtained that demonstrated bilateral infiltrates possible large amount of clot, she did have a right mainstem intubation that was backed up and she is evaluated at bedside by pulmonology and ENT who felt that her bleeding was from epistaxis. She is sedated on propofol but did require vecuronium as well as Versed boluses and titration up on the propofol drip to maintain adequate sedation. The patient will be bronched in the ICU, plan is for ICU admission waiting for that at this time. Patient's been hemodynamically stable throughout her course in the emergency department. Vital Signs Temperature 97.5 F L 11/13/17 06:13 Pulse Rate 109 11/13/17 06:13 Respiratory Rate 24 11/13/17 06:13 Blood Pressure 186/104 11/13/17 06:13 O2 Sat by Pulse Oximetry 78 11/13/17 06:13 Temperature 97.5 F L 11/13/17 06:13 Pulse Rate 73 11/13/17 11:11 Respiratory Rate 14 11/13/17 11:11 Blood Pressure 151/99 11/13/17 11:11 O2 Sat by Pulse Oximetry 100 11/13/17 11:11 Oxygen Delivery Oxygen Delivery Ventilator Medical Decision Making - Medical Records Medical records reviewed: Yes I reviewed the patient's medical records. - Lab Data Lab results reviewed: Yes I reviewed the patient's lab results. Result diagrams: 11/13/17 06:28 11/13/17 06:28 Lab Results 11/13/17 11/13/17 11/13/17 Range/Units 06:28 06:28 06:28 WBC 16.1 H (4.3-11.1) K/mcL RBC 3.69 L (3.82-4.97) M/mcL Hgb 10.5 L (11.5-15.4) g/dL Hct 32.1 L (35.3-44.9) % MCV 87.0 (83.0-100.0) fL MCH 28.5 (28.0-33.3) pg MCHC 32.7 (31.6-35.5) g/dL RDW 15.8 H (11.5-14.5) % Plt Count 344 (140-400) K/mcL MPV 10.1 (9.4-12.4) fL Immature Gran % 0.5 (0-4) % Seg Neutrophils % 68.3 % Lymphocytes % 23.5 % Monocytes % 7.5 % Eosinophils % 0.1 % Basophils % 0.1 % Neutrophils # 11.0 H (1.6-8.9) K/mcL Lymphocytes # 3.8 (0.6-4.6) K/mcL Monocytes # 1.2 (0.0-1.3) K/mcL Eosinophils # 0.0 (0.0-0.6) K/mcL Basophils # 0.0 (0.0-0.2) K/mcL PT 14.7 H (9.4-12.1) Seconds INR 1.4 APTT 27.1 (26.0-36.0) Seconds D-Dimer 244 (0-500) ng/mLFEU ABG pH (7.32-7.45) pH Units ABG pCO2 (35-45) mmHg ABG pO2 (85-104) mmHg ABG HCO3 (21-27) mEq/L ABG Total CO2 (20-26) mEq/L ABG O2 Saturation (95-98) % ABG Base Excess (-2 to 3) mEq/L Eleuterio Test Respiration Rate O2 Delivery Device Blood Gas Modality Inspired O2 (1-15=lpm [id number]=%) Tidal Volume cc PEEP cm H2O Sodium 136 (136-145) mEq/L Potassium 3.6 (3.5-5.1) mEq/L Chloride 100 (98-107) mEq/L Carbon Dioxide 30 H (23-29) mEq/L BUN 22 (8-23) mg/dL Creatinine 0.75 (0.60-1.20) mg/dL Est GFR ( Amer) > 60 (> 60) Est GFR (Non-Af Amer) > 60 (> 60) BUN/Creatinine Ratio 29 H (6-26) Glucose 139 H (70-105) mg/dL Calculated Osmolality 288 (280-300) Lactic Acid (0.5-2.2) mmol/L Calcium 9.1 (8.6-10.3) mg/dL Total Bilirubin 0.5 (0.3-1.0) mg/dL Direct Bilirubin 0.0 (0.0-0.2) mg/dL Indirect Bilirubin 0.5 (0.0-1.2) mg/dL AST 22 (13-39) Units/L ALT 32 (7-52) Units/L Alkaline Phosphatase 41 (34-104) Units/L Creatine Kinase 18 L (30-223) Units/L Troponin I < 0.03 (< 0.04) ng/mL B-Natriuretic Peptide (Less than 100) pg/mL Serum Total Protein 6.0 L (6.4-8.9) g/dL Albumin 3.7 (3.5-5.7) g/dL Globulin 2.3 L (2.4-3.5) g/dL Albumin/Globulin Ratio 1.6 (1.1-2.2) Blood Type Antibody Screen 11/13/17 11/13/17 11/13/17 Range/Units 06:28 06:28 07:06 WBC (4.3-11.1) K/mcL RBC (3.82-4.97) M/mcL Hgb (11.5-15.4) g/dL Hct (35.3-44.9) % MCV (83.0-100.0) fL MCH (28.0-33.3) pg MCHC (31.6-35.5) g/dL RDW (11.5-14.5) % Plt Count (140-400) K/mcL MPV (9.4-12.4) fL Immature Gran % (0-4) % Seg Neutrophils % % Lymphocytes % % Monocytes % % Eosinophils % % Basophils % % Neutrophils # (1.6-8.9) K/mcL Lymphocytes # (0.6-4.6) K/mcL Monocytes # (0.0-1.3) K/mcL Eosinophils # (0.0-0.6) K/mcL Basophils # (0.0-0.2) K/mcL PT (9.4-12.1) Seconds INR APTT (26.0-36.0) Seconds D-Dimer (0-500) ng/mLFEU ABG pH (7.32-7.45) pH Units ABG pCO2 (35-45) mmHg ABG pO2 (85-104) mmHg ABG HCO3 (21-27) mEq/L ABG Total CO2 (20-26) mEq/L ABG O2 Saturation (95-98) % ABG Base Excess (-2 to 3) mEq/L Eleuterio Test Respiration Rate O2 Delivery Device Blood Gas Modality Inspired O2 (1-15=lpm eu63-101=%) Tidal Volume cc PEEP cm H2O Sodium (136-145) mEq/L Potassium (3.5-5.1) mEq/L Chloride (98-107) mEq/L Carbon Dioxide (23-29) mEq/L BUN (8-23) mg/dL Creatinine (0.60-1.20) mg/dL Est GFR ( Amer) (> 60) Est GFR (Non-Af Amer) (> 60) BUN/Creatinine Ratio (6-26) Glucose (70-105) mg/dL Calculated Osmolality (280-300) Lactic Acid 1.3 (0.5-2.2) mmol/L Calcium (8.6-10.3) mg/dL Total Bilirubin (0.3-1.0) mg/dL Direct Bilirubin (0.0-0.2) mg/dL Indirect Bilirubin (0.0-1.2) mg/dL AST (13-39) Units/L ALT (7-52) Units/L Alkaline Phosphatase (34-104) Units/L Creatine Kinase (30-223) Units/L Troponin I (< 0.04) ng/mL B-Natriuretic Peptide 439 H (Less than 100) pg/mL Serum Total Protein (6.4-8.9) g/dL Albumin (3.5-5.7) g/dL Globulin (2.4-3.5) g/dL Albumin/Globulin Ratio (1.1-2.2) Blood Type O POSITIVE Antibody Screen NEGATIVE 11/13/17 Range/Units 10:14 WBC (4.3-11.1) K/mcL RBC (3.82-4.97) M/mcL Hgb (11.5-15.4) g/dL Hct (35.3-44.9) % MCV (83.0-100.0) fL MCH (28.0-33.3) pg MCHC (31.6-35.5) g/dL RDW (11.5-14.5) % Plt Count (140-400) K/mcL MPV (9.4-12.4) fL Immature Gran % (0-4) % Seg Neutrophils % % Lymphocytes % % Monocytes % % Eosinophils % % Basophils % % Neutrophils # (1.6-8.9) K/mcL Lymphocytes # (0.6-4.6) K/mcL Monocytes # (0.0-1.3) K/mcL Eosinophils # (0.0-0.6) K/mcL Basophils # (0.0-0.2) K/mcL PT (9.4-12.1) Seconds INR APTT (26.0-36.0) Seconds D-Dimer (0-500) ng/mLFEU ABG pH 7.50 H (7.32-7.45) pH Units ABG pCO2 38 (35-45) mmHg ABG pO2 341 H (85-104) mmHg ABG HCO3 30 H (21-27) mEq/L ABG Total CO2 31 H (20-26) mEq/L ABG O2 Saturation 100 H (95-98) % ABG Base Excess 6 H (-2 to 3) mEq/L Eleuterio Test N/A Respiration Rate 14 O2 Delivery Device Adult Vent Blood Gas Modality ASSIST CONTROL Inspired O2 70.0 (1-15=lpm [id number]=%) Tidal Volume 450 cc PEEP 5 cm H2O Sodium (136-145) mEq/L Potassium (3.5-5.1) mEq/L Chloride (98-107) mEq/L Carbon Dioxide (23-29) mEq/L BUN (8-23) mg/dL Creatinine (0.60-1.20) mg/dL Est GFR ( Amer) (> 60) Est GFR (Non-Af Amer) (> 60) BUN/Creatinine Ratio (6-26) Glucose (70-105) mg/dL Calculated Osmolality (280-300) Lactic Acid (0.5-2.2) mmol/L Calcium (8.6-10.3) mg/dL Total Bilirubin (0.3-1.0) mg/dL Direct Bilirubin (0.0-0.2) mg/dL Indirect Bilirubin (0.0-1.2) mg/dL AST (13-39) Units/L ALT (7-52) Units/L Alkaline Phosphatase (34-104) Units/L Creatine Kinase (30-223) Units/L Troponin I (< 0.04) ng/mL B-Natriuretic Peptide (Less than 100) pg/mL Serum Total Protein (6.4-8.9) g/dL Albumin (3.5-5.7) g/dL Globulin (2.4-3.5) g/dL Albumin/Globulin Ratio (1.1-2.2) Blood Type Antibody Screen - Radiology Data Radiology results reviewed: Yes I reviewed the patient's radiology results. Chest CTA 11/13/17 06:19 IMPRESSION: 1. No evidence of pulmonary embolism or acute pulmonary abnormality. 2. Right main bronchus intubation retraction approximately 3.5-4 cm is suggested for more optimal positioning. 3. Multifocal consolidations and ground-glass and tree-in-bud densities throughout the lungs, as above, is concerning for multifocal pneumonitis, possibly aspiration type given the mucus plugs in the bilateral lower lobes. 4. Small right and trace left pleural effusions. 5. Critical results were called by Dr. Nils Cruz to Donald Whatley on 11/13/2017 at 08:08. D/ / Nils Cruz / Nils Cruz Interpreting Provider: Nils Cruz Chest X-Ray 11/13/17 07:54 IMPRESSION: 1. The endotracheal tube is within the proximal right mainstem bronchus. Retraction by approximately 2 cm and reimaging is recommended. 2. Small left pleural effusion with overlying atelectasis versus pneumonia. Results of this examination were verbally communicated to the patient's nurse, Gabrielle Sen, at 8:28 a.m. on 11/13/2017. D/ / Nils García MD / Nils García MD Interpreting Provider: Nils García MD
[2017-11-13 12:10] LABS: Basophils % 0.2 %; Eosinophils # 0.1 K/mcL (0.0-0.6); Eosinophils % 0.2 %; Hematocrit 28.9 % (35.3-44.9); Hemoglobin 9.5 g/dL (11.5-15.4); Immature Granulocytes % 0.7 % (0-4); Lymphocytes # 4.7 K/mcL (0.6-4.6); Lymphocytes % 19.2 %; Mean Corpuscular HGB Conc 32.9 g/dL (31.6-35.5); Mean Corpuscular Hemoglobin 28.7 pg (28.0-33.3); Mean Corpuscular Volume 87.3 fL (83.0-100.0); Mean Platelet Volume 10.2 fL (9.4-12.4); Monocytes # 1.9 K/mcL (0.0-1.3); Monocytes % 7.7 %; Platelet Count 267 K/mcL (140-400); Red Blood Count 3.31 M/mcL (3.82-4.97); Red Cell Distribution Width 15.9 % (11.5-14.5)
[2017-11-13 12:17] LABS: Basophils # 0.1 K/mcL (0.0-0.2); Neutrophils # 17.7 K/mcL (1.6-8.9)
[2017-11-13 12:32] LABS: BUN/Creatinine Ratio 35 (6-26); Blood Urea Nitrogen 26 mg/dL (8-23); Calcium 8.8 mg/dL (8.6-10.3); Carbon Dioxide 28 mEq/L (23-29); Chloride 104 mEq/L (98-107); Glucose 95 mg/dL (70-105); Osmolality,Calculated 289 (280-300); Potassium 3.9 mEq/L (3.5-5.1); Sodium 137 mEq/L (136-145); eGFR For African Americans > 60 (> 60); eGFR For Non-African Americans > 60 (> 60)
[2017-11-13] MEDS: Lacri-Lube 3.5 GM TUBE BOTH EYES SCH ×3 (14:07→22:15)
[2017-11-13] MEDS: Pantoprazole 40 MG VIAL IVP SCH (14:41)
[2017-11-13] MEDS: Dexmedetomidine HCl 400 MCG/100 ML MLS IVC SCH (14:41)
[2017-11-13] MEDS ORDERED: *HR* Rocuronium Bromide 100 MG/10 ML VIAL IVC ONE (14:42)
[2017-11-13] MEDS: FentaNYL (PF) 1,000 MCG in 0.9 % Sodium Chloride 80 ML IVC SCH (14:42)
[2017-11-13] MEDS ORDERED: *HR* Etomidate 20 MG/10 ML AMPUL IVP ONE (14:42)
[2017-11-13] MEDS ORDERED: *HR* Midazolam HCl 5 MG/5 ML VIAL IVP ONE (14:42)
[2017-11-13] MEDS: Piperacillin/Tazobactam 3.375 GM in 0.9 % Sodium Chloride Mini Bag 100 ML IVPB SCH (15:03)
[2017-11-13] MEDS: Ringers Solution, Lactated 1,000 ML IVC SCH (15:04)
[2017-11-13] MEDS ORDERED: 0.9 % Sodium Chloride 500 ML IVC ONE (16:06)
[2017-11-13 16:43] LABS: Hematocrit 25.7 % (35.3-44.9); Hemoglobin 8.4 g/dL (11.5-15.4)
--- NOTE | 2017-11-13 18:51 | Procedure Note ---
Addendum entered and electronically signed by Gurdeep Menjivar DO 11/13/17 19:01: written consent was obtained from the family prior to starting the procedure and was placed in the patient's physical chart in the ICU. Original Note: <Gurdeep Menjivar - Last Filed: 11/13/17 18:49> Date of procedure: 11/13/17 Pre-op diagnosis: hypotension, anemia Post-op diagnosis: same Procedure: Procedure Note Procedure: Central Line Physician(s): Gurdeep Menjivar D.O. Indication: hypotension/anemia Anesthesia: endotracheal intubation with fentanyl/precedex A time-out was completed, verifying correct patient, procedure, site, positioning, and implant(s) or special equipment if applicable. Patients right internal jugular area was prepped and draped in usual sterile fashion. She was placed in slight trendelenburg position and the head was turned 45 degrees to the patients left. Using sterile and continuous ultrasound guidance, a 16 cm triple lumen central venous catheter was introduced over a guidewire (also confirmed intra-venous with ultrasound) via the Seldinger technique (although the vein was not punctured through and through as in the traditional technique) , then sutured in place. Good dark venous blood flow was noted from all ports and then flushed with sterile saline without resistance. The patient tolerated the procedure well. Chest x-ray was ordered to assess for pneumothorax and catheter placement which showed it to be in good position and no pneumothorax. Complications: None Blood loss: Minimal Dr. Bianchi was present/immediately available during the entire procedure. Anesthesia: GETA Surgeon: Gurdeep Menjivar Was there an assistant chief train dispatcher present: Yes Recruiter: Grace Bianchi Estimated blood loss (cc): 0 Specimen: None Pathology: none sent Condition: stable Disposition: ICU <Grace Bianchi - Last Filed: 11/14/17 08:06> Procedure: This note was signed on 11/14/2017, but I personally was present. No immediate complications. I examined this patient and my medical decision-making was reviewed with the Resident Physician. I agree with the documented findings, disposition and treatment plan as described except to the extent set forth below.
[2017-11-13] MEDS: Norepinephrine 4 MG in D5% in Water 250 ML IVC SCH (19:00)
[2017-11-13 20:47] LABS: Source of Body Fluid RLL BAL
[2017-11-13] MEDS ORDERED: Perphenazine 2 MG TABLET PO SCH (21:00)
[2017-11-13 21:49] LABS: Hematocrit 23.6 % (35.3-44.9); Hemoglobin 7.5 g/dL (11.5-15.4)
[2017-11-13 21:57] LABS: INR 1.2; Prothrombin Time 13.4 Seconds (9.4-12.1)
[2017-11-13 21:59] LABS: Activated Partial Thrombo Time 28.1 Seconds (26.0-36.0)
[2017-11-13 22:10] LABS: Appearance of Body Fluid Hazy (Clear); Volume of Body Fluid 15 mL
[2017-11-13] MEDS: Chlorhexidine Rinse 15 ML MOUTHWASH MM SCH (22:14)
[2017-11-14] MEDS: Piperacillin/Tazobactam 3.375 GM in 0.9 % Sodium Chloride Mini Bag 100 ML IVPB SCH ×3 (00:07→15:48)
[2017-11-14] MEDS: Lacri-Lube 3.5 GM TUBE BOTH EYES SCH ×4 (00:10→11:53)
[2017-11-14] MEDS: Ringers Solution, Lactated 1,000 ML IVC SCH ×3 (03:44→18:59)
[2017-11-14 04:24] LABS: Basophils % 0.1 %; Eosinophils # 0.3 K/mcL (0.0-0.6); Eosinophils % 2.3 %; Hematocrit 24.4 % (35.3-44.9); Hemoglobin 7.7 g/dL (11.5-15.4); Immature Granulocytes % 0.6 % (0-4); Lymphocytes # 2.9 K/mcL (0.6-4.6); Lymphocytes % 23.3 %; Mean Corpuscular HGB Conc 31.6 g/dL (31.6-35.5); Mean Corpuscular Hemoglobin 27.4 pg (28.0-33.3); Mean Corpuscular Volume 86.8 fL (83.0-100.0); Mean Platelet Volume 9.9 fL (9.4-12.4); Monocytes # 0.7 K/mcL (0.0-1.3); Monocytes % 5.8 %; Neutrophils # 8.4 K/mcL (1.6-8.9); Nucleated Red Blood Cells 0.2 /100 WBC (0); Platelet Count 201 K/mcL (140-400); Red Blood Count 2.81 M/mcL (3.82-4.97); Red Cell Distribution Width 15.7 % (11.5-14.5); Segmented Neutrophils % 67.9 %
[2017-11-14 04:34] LABS: ABG Base Excess 4 mEq/L (-2 to 3); ABG HCO3 28 mEq/L (21-27); ABG Oxygen Saturation 99 % (95-98); ABG PCO2 40 mmHg (35-45); ABG PH 7.46 pH Units (7.32-7.45); ABG PO2 116 mmHg (85-104); ABG TCO2 30 mEq/L (20-26); Blood Gas Modality ASSIST CONTROL; Blood Gas PEEP 5 cm H2O; Blood Gas Respiration Rate 14; Blood Gas VT 450 cc
[2017-11-14 04:48] LABS: BUN/Creatinine Ratio 36 (6-26); Blood Urea Nitrogen 24 mg/dL (8-23); Carbon Dioxide 26 mEq/L (23-29); Chloride 106 mEq/L (98-107); Glucose 93 mg/dL (70-105); Osmolality,Calculated 292 (280-300); Potassium 3.5 mEq/L (3.5-5.1); Sodium 139 mEq/L (136-145); eGFR For African Americans > 60 (> 60); eGFR For Non-African Americans > 60 (> 60)
--- NOTE | 2017-11-14 07:58 | Pulmonology Progress Note ---
<IsaiahgarethGrace reardon M - Last Filed: 11/14/17 10:05> Date of Encounter: 11/14/17 Objective PUL Vital signs: Last Vital Signs Temp 100 F H 11/14/17 07:40 Pulse 92 11/14/17 09:00 Resp 15 11/14/17 09:00 BP 134/85 11/14/17 09:00 Pulse Ox 100 11/14/17 09:00 Ventilator Settings Ventilator Settings: Ventilator Settings, Last 8 Hours Ventilator Tidal Volume 450 Setting Ventilator Tidal Volume 450 Setting Ventilator Tidal Volume 450 Setting Ventilator Tidal Volume 450 Setting Ventilator Tidal Volume 450 Setting Ventilator Tidal Volume 450 Setting Ventilator Tidal Volume 450 Setting Ventilator Tidal Volume 450 Setting Ventilator Tidal Volume 450 Setting Ventilator Respiratory Rate 14 Setting Ventilator Respiratory Rate 14 Setting Ventilator Respiratory Rate 14 Setting Ventilator Respiratory Rate 14 Setting Ventilator Respiratory Rate 14 Setting Ventilator Respiratory Rate 14 Setting Ventilator Respiratory Rate 14 Setting Ventilator Respiratory Rate 14 Setting Ventilator Respiratory Rate 14 Setting Actual Respiratory Rate 15 Actual Respiratory Rate 13 Actual Respiratory Rate 14 Actual Respiratory Rate 14 Actual Respiratory Rate 14 Actual Respiratory Rate 14 Actual Respiratory Rate 14 Actual Respiratory Rate 14 Actual Respiratory Rate 14 Actual Respiratory Rate 14 Positive End Expiratory 5 Pressure Positive End Expiratory 5 Pressure Positive End Expiratory 5 Pressure Positive End Expiratory 5 Pressure Positive End Expiratory 5 Pressure Positive End Expiratory 5 Pressure Positive End Expiratory 5 Pressure Positive End Expiratory 5 Pressure Positive End Expiratory 5 Pressure Positive End Expiratory 5 Pressure Positive End Expiratory 5 Pressure Peak Inspiratory Airway 16 Pressure Peak Inspiratory Airway 16 Pressure Peak Inspiratory Airway 21 Pressure Peak Inspiratory Airway 21 Pressure Peak Inspiratory Airway 20 Pressure Peak Inspiratory Airway 20 Pressure Peak Inspiratory Airway 21 Pressure Peak Inspiratory Airway 24 Pressure Peak Inspiratory Airway 22 Pressure Peak Inspiratory Airway 21 Pressure Results - Laboratory Findings CBC and BMP: 11/14/17 04:10 11/14/17 04:10 ABG ABG pH 7.46 pH Units (7.32-7.45) H 11/14/17 04:30 ABG pCO2 40 mmHg (35-45) 11/14/17 04:30 ABG pO2 116 mmHg (85-104) H 11/14/17 04:30 ABG O2 Saturation 99 % (95-98) H 11/14/17 04:30 PT/INR, D-dimer PT 13.4 Seconds (9.4-12.1) H 11/13/17 21:00 D-Dimer 244 ng/mLFEU (0-500) 11/13/17 06:28 Abnormal lab findings: Abnormal lab results WBC 12.3 K/mcL (4.3-11.1) H 11/14/17 04:10 RBC 2.81 M/mcL (3.82-4.97) L 11/14/17 04:10 Hgb 7.7 g/dL (11.5-15.4) L 11/14/17 04:10 Hct 24.4 % (35.3-44.9) L 11/14/17 04:10 MCH 27.4 pg (28.0-33.3) L 11/14/17 04:10 RDW 15.7 % (11.5-14.5) H 11/14/17 04:10 Nucleated RBCs/100 WBC 0.2 /100 WBC (0) H 11/14/17 04:10 PT 13.4 Seconds (9.4-12.1) H 11/13/17 21:00 ABG pH 7.46 pH Units (7.32-7.45) H 11/14/17 04:30 ABG pO2 116 mmHg (85-104) H 11/14/17 04:30 ABG HCO3 28 mEq/L (21-27) H 11/14/17 04:30 ABG Total CO2 30 mEq/L (20-26) H 11/14/17 04:30 ABG O2 Saturation 99 % (95-98) H 11/14/17 04:30 ABG Base Excess 4 mEq/L (-2 to 3) H 11/14/17 04:30 BUN 24 mg/dL (8-23) H 11/14/17 04:10 BUN/Creatinine Ratio 36 (6-26) H 11/14/17 04:10 Calcium 8.0 mg/dL (8.6-10.3) L 11/14/17 04:10 Creatine Kinase 18 Units/L (30-223) L 11/13/17 06:28 B-Natriuretic Peptide 439 pg/mL (Less than 100) H 11/13/17 06:28 Serum Total Protein 6.0 g/dL (6.4-8.9) L 11/13/17 06:28 Globulin 2.3 g/dL (2.4-3.5) L 11/13/17 06:28 Fluid Appearance Hazy (Clear) A 11/13/17 14:35 - Microbiology Findings Microbiology Findings: Microbiology, Last 48 Hours 11/13/17 14:35 Gram Stain - Final Right Lower Lobe Lung - Clinical Findings Intake & Output: Intake & Output 11/13/17 11/14/17 11/14/17 23:59 07:59 15:59 Intake Total 607 / 607 1100 / 1100 Output Total 50 / 50 1850 / 1850 Balance 557 / 557 -750 / -750 Consult Discharge Plan - Plan Referrals: Danette Real, [employer] [Primary Care Provider] - - Attending Attestation I examined this patient and my medical decision-making was reviewed with the Resident Physician. I agree with the documented findings, disposition and treatment plan as described except to the extent set forth below. Patient seen and examined. Labs, radiology, chart personally reviewed. Agree with resident's history and physical, assessment, plan with following comments: GREASE MAN: Patient follows commands, She has weakness in the left uppe ext. ENT will follow up. MRI of brain. Pulmonary: Acceptable oxygenation and ventilation. Patient is extubated. Cardiovascular: BP is in the high side. GI: Nutrition per dietary and GI prophylaxis per routine Heme: DVT prophylaxis per routine. Stable hemoglobin. No heparin because of the bleeding. Patient will be on mechanical prophylaxis. ID: Continue antibiotics and plan to de-escalation. Stop Zosyn Renal; urine out put and renal funtion reviewed Endorcine: blood glucose is monitored Lines: all lines checked and no evidence of infections Skin: skin care to prevent pressure ulcers per nursing routine care If remain stable can be transferred <Gurdeep Menjivar - Last Filed: 11/14/17 11:06> Date of Encounter: 11/14/17 Time of Encounter: 07:00 Assessment and Plan (1) Epistaxis Current Visit: Yes Status: Acute ENT was consult that and agreed that the likely source of her hemoptysis was a right-sided epistaxis. 1. Plan to extubate today 2. She was intubated for airway protection. 3. Bronchoscopy did not show a pulmonary source. 4. Bleeding has slowed and the patient's HGB have remained stable. 5. ENT did recommend leaving the packing and for the next 4-5 days for the right side and possibly removing the L tomorrow. (2) Hemoptysis Current Visit: Yes Status: Acute 1. Unclear if this is from nose bleed or from lungs but bronchoscopy didn't show any pulmonary source. She has remained intubated but plan to extuabate today and see how she does. She was awake, following commands, having adequate tidal volumes. (3) Respiratory failure Current Visit: Yes Status: Acute 1. Secondary to epistaxis and hemoptysis. 2. Intubated for airway protection and is on ventilator support but plan to extubate this AM. Qualifiers: Chronicity: acute Respiratory failure complication: hypoxia Qualified Code(s): J96.01 - Acute respiratory failure with hypoxia Subjective Principal diagnosis: Epistaxis Interval history: Patient did well overnight. Bronchoscopy did not show any source of pulmonary bleeding. ENT did not see any mass, lacerations or other source of bleeding. Suspecting her bleeding was coming from her nose. She has had some coffee- ground emesis from her OG tube. She was awake today and following commands. There was some concern yesterday that she was not moving her left upper extremity and a head CT was ordered . That was read as normal. She is moving her left upper extremity, but less well than the right. Her hemoglobin has remained stable. She is been afebrile. Objective PUL Vital signs: Last Vital Signs Temp 99 F 11/14/17 04:00 Pulse 81 11/14/17 06:00 Resp 14 11/14/17 06:00 BP 126/72 11/14/17 06:00 Pulse Ox 100 11/14/17 06:00 General appearance: no acute distress, alert Eyes: nonicteric ENT: oropharynx dry, other (B/L nasal packing, clear on L and blood tinged on R but no active bleeding ) Neck: supple Effort: normal Auscultation: bilateral: diminished breath sounds Cardiovascular: regular rate and rhythm Gastrointestinal: normoactive bowel sounds, non-distended Integumentary: normal Extremities: no cyanosis, edema Musculoskeletal: no deformities pupils equal and round, other (L arm weakness but does move it) anxious Ventilator Settings Ventilator Settings: Ventilator Settings, Last 8 Hours Ventilator Tidal Volume 450 Setting Ventilator Tidal Volume 450 Setting Ventilator Tidal Volume 450 Setting Ventilator Tidal Volume 450 Setting Ventilator Tidal Volume 450 Setting Ventilator Tidal Volume 450 Setting Ventilator Tidal Volume 450 Setting Ventilator Tidal Volume 450 Setting Ventilator Tidal Volume 450 Setting Ventilator Tidal Volume 450 Setting Ventilator Tidal Volume 450 Setting Ventilator Respiratory Rate 14 Setting Ventilator Respiratory Rate 14 Setting Ventilator Respiratory Rate 14 Setting Ventilator Respiratory Rate 14 Setting Ventilator Respiratory Rate 14 Setting Ventilator Respiratory Rate 14 Setting Ventilator Respiratory Rate 14 Setting Ventilator Respiratory Rate 14 Setting Ventilator Respiratory Rate 14 Setting Ventilator Respiratory Rate 14 Setting Ventilator Respiratory Rate 14 Setting Actual Respiratory Rate 14 Actual Respiratory Rate 14 Actual Respiratory Rate 14 Actual Respiratory Rate 14 Actual Respiratory Rate 14 Actual Respiratory Rate 14 Actual Respiratory Rate 14 Actual Respiratory Rate 14 Actual Respiratory Rate 14 Actual Respiratory Rate 14 Positive End Expiratory 5 Pressure Positive End Expiratory 5 Pressure Positive End Expiratory 5 Pressure Positive End Expiratory 5 Pressure Positive End Expiratory 5 Pressure Positive End Expiratory 5 Pressure Positive End Expiratory 5 Pressure Positive End Expiratory 5 Pressure Positive End Expiratory 5 Pressure Positive End Expiratory 5 Pressure Positive End Expiratory 5 Pressure Peak Inspiratory Airway 21 Pressure Peak Inspiratory Airway 20 Pressure Peak Inspiratory Airway 20 Pressure Peak Inspiratory Airway 21 Pressure Peak Inspiratory Airway 24 Pressure Peak Inspiratory Airway 22 Pressure Peak Inspiratory Airway 21 Pressure Peak Inspiratory Airway 22 Pressure Peak Inspiratory Airway 22 Pressure Peak Inspiratory Airway 22 Pressure Results - Laboratory Findings CBC and BMP: 11/14/17 04:10 11/14/17 04:10 ABG ABG pH 7.46 pH Units (7.32-7.45) H 11/14/17 04:30 ABG pCO2 40 mmHg (35-45) 11/14/17 04:30 ABG pO2 116 mmHg (85-104) H 11/14/17 04:30 ABG O2 Saturation 99 % (95-98) H 11/14/17 04:30 PT/INR, D-dimer PT 13.4 Seconds (9.4-12.1) H 11/13/17 21:00 D-Dimer 244 ng/mLFEU (0-500) 11/13/17 06:28 Abnormal lab findings: Abnormal lab results WBC 12.3 K/mcL (4.3-11.1) H 11/14/17 04:10 RBC 2.81 M/mcL (3.82-4.97) L 11/14/17 04:10 Hgb 7.7 g/dL (11.5-15.4) L 11/14/17 04:10 Hct 24.4 % (35.3-44.9) L 11/14/17 04:10 MCH 27.4 pg (28.0-33.3) L 11/14/17 04:10 RDW 15.7 % (11.5-14.5) H 11/14/17 04:10 Nucleated RBCs/100 WBC 0.2 /100 WBC (0) H 11/14/17 04:10 PT 13.4 Seconds (9.4-12.1) H 11/13/17 21:00 ABG pH 7.46 pH Units (7.32-7.45) H 11/14/17 04:30 ABG pO2 116 mmHg (85-104) H 11/14/17 04:30 ABG HCO3 28 mEq/L (21-27) H 11/14/17 04:30 ABG Total CO2 30 mEq/L (20-26) H 11/14/17 04:30 ABG O2 Saturation 99 % (95-98) H 11/14/17 04:30 ABG Base Excess 4 mEq/L (-2 to 3) H 11/14/17 04:30 BUN 24 mg/dL (8-23) H 11/14/17 04:10 BUN/Creatinine Ratio 36 (6-26) H 11/14/17 04:10 Calcium 8.0 mg/dL (8.6-10.3) L 11/14/17 04:10 Creatine Kinase 18 Units/L (30-223) L 11/13/17 06:28 B-Natriuretic Peptide 439 pg/mL (Less than 100) H 11/13/17 06:28 Serum Total Protein 6.0 g/dL (6.4-8.9) L 11/13/17 06:28 Globulin 2.3 g/dL (2.4-3.5) L 11/13/17 06:28 Fluid Appearance Hazy (Clear) A 11/13/17 14:35 - Microbiology Findings Microbiology Findings: Microbiology, Last 48 Hours 11/13/17 14:35 Gram Stain - Final Right Lower Lobe Lung - Clinical Findings Intake & Output: Intake & Output 11/13/17 11/13/17 11/14/17 15:59 23:59 07:59 Intake Total 63.4 / 63.4 607 / 607 1000 / 1000 Output Total 650 / 650 50 / 50 1350 / 1350 Balance -586.6 / -586.6 557 / 557 -350 / -350 Weight 68.3 kg
[2017-11-14] MEDS: Pantoprazole 40 MG VIAL IVP SCH (08:40)
[2017-11-14] MEDS: Chlorhexidine Rinse 15 ML MOUTHWASH MM SCH (08:40)
[2017-11-14] MEDS ORDERED: Levofloxacin 500 MG/100 ML 500 MG/100 ML BAG IVPB ONE (09:00)
[2017-11-14] MEDS ORDERED: Diltiazem CD (24hr) 240 MG CAPSULE PO SCH (09:00)
[2017-11-14] MEDS ORDERED: levoFLOXacin 500 MG TABLET PO SCH (09:00)
[2017-11-14] MEDS ORDERED: Furosemide 20 MG TABLET PO SCH (09:00)
[2017-11-14] MEDS: *HR* Metoprolol 5 MG/5 ML VIAL IVP PRN ×2 (09:53→15:46)
[2017-11-14] MEDS ORDERED: Ondansetron 4 MG/2 ML VIAL ONE (11:34)
[2017-11-14] MEDS: Ondansetron 4 MG/2 ML VIAL IVP PRN (11:35)
[2017-11-14] MEDS: FentaNYL (PF) 1,000 MCG in 0.9 % Sodium Chloride 80 ML IVC SCH (12:01)
--- NOTE | 2017-11-14 13:42 | ENT - Progress Note ---
Date of Encounter: 11/14/17 Time of Encounter: 13:39 - Assessment and Plan (1) Epistaxis Current Visit: Yes Status: Acute Likely source of bleeding based on right rhinorocket soaked in blood and lack of other source identified on my exam. s/p extubation this morning with concern for stroke due to upper extremity motor deficits. She is conversive and alert. -I recommend to keep nasal packs in place for 4-5 days due to Eliquis use which is currently being held. - Will pull left pack first then right. - Maintain staph abx coverage while packs are in place - no other intervention needed currently. -may need to weigh risks benefits of blood thinner use in the future. (2) Hemoptysis Current Visit: Yes Status: Acute (3) Respiratory failure Current Visit: Yes Status: Acute s/p extubation this am Qualifiers: Chronicity: acute Respiratory failure complication: hypoxia Qualified Code(s): J96.01 - Acute respiratory failure with hypoxia (4) A-fib Current Visit: No Status: Acute Qualifiers: Atrial fibrillation type: unspecified Qualified Code(s): I48.91 - Unspecified atrial fibrillation Subjective Patient reports: no new complaints, other (Extubated this am, she is awake alert and conversive. Denies nasal pain. She is unable to move her left upper extremity currently. ) Objective Initial Vital Signs Temp Pulse Resp BP Pulse Ox 97.5 F L 109 24 186/104 78 11/13/17 06:13 11/13/17 06:13 11/13/17 06:13 11/13/17 06:13 11/13/17 06:13 - Labs 11/14/17 04:10 11/14/17 04:10 Diabetes panel 11/14/17 Range/Units 04:10 Sodium 139 (136-145) mEq/L Potassium 3.5 (3.5-5.1) mEq/L Chloride 106 (98-107) mEq/L Carbon Dioxide 26 (23-29) mEq/L BUN 24 H (8-23) mg/dL Creatinine 0.67 (0.60-1.20) mg/dL Glucose 93 (70-105) mg/dL Calcium 8.0 L (8.6-10.3) mg/dL Calcium panel 11/14/17 Range/Units 04:10 Calcium 8.0 L (8.6-10.3) mg/dL Pituitary panel 11/14/17 Range/Units 04:10 Sodium 139 (136-145) mEq/L Potassium 3.5 (3.5-5.1) mEq/L Chloride 106 (98-107) mEq/L Carbon Dioxide 26 (23-29) mEq/L BUN 24 H (8-23) mg/dL Creatinine 0.67 (0.60-1.20) mg/dL Glucose 93 (70-105) mg/dL Calcium 8.0 L (8.6-10.3) mg/dL Adrenal panel 11/14/17 Range/Units 04:10 Sodium 139 (136-145) mEq/L Potassium 3.5 (3.5-5.1) mEq/L Chloride 106 (98-107) mEq/L Carbon Dioxide 26 (23-29) mEq/L BUN 24 H (8-23) mg/dL Creatinine 0.67 (0.60-1.20) mg/dL Glucose 93 (70-105) mg/dL Calcium 8.0 L (8.6-10.3) mg/dL Consult Discharge Plan - Plan Referrals: Danette Real, [employer] [Primary Care Provider] -
[2017-11-14] MEDS: Dexmedetomidine HCl 400 MCG/100 ML MLS IVC SCH (15:54)
[2017-11-14] MEDS: Norepinephrine 4 MG in D5% in Water 250 ML IVC SCH (15:55)
--- NOTE | 2017-11-14 19:02 | Neurology - Consult Note ---
Date of Encounter: 11/14/17 Time of Encounter: 18:52 Assessment and Plan (1) Right hemisphere, cerebral infarction Current Visit: Yes Status: Acute At this point the etiology of this infarct is unknown. It does however involve a branch of the right middle cerebral artery. Therefore etiologies to consider might the cardioembolic, thromboembolic, or intracranial thrombosis. Anticoagulation was abruptly stopped upon admission due to severe hemoptysis. Given her history of atrial fibrillation anticoagulation is the treatment of choice. She did have an echocardiogram completed during her admission this past October which did not reveal a cardioembolic source at that time. For now I will obtain a carotid Doppler study. Stroke protocol orders should be implemented. I would recommend resuming antiplatelet therapy when appropriate with regard to her epistaxis. Even antiplatelet therapy would be better than nothing until anticoagulation is safe to resume. If the patient becomes somnolent overnight repeat CT imaging should be initiated immediately. I will reevaluate her tomorrow. Critical care time spent with this patient reviewing the chart, reviewing the images, counseling and coordinating care was greater than 60 minutes. History of Present Illness HPI: The chart was reviewed, the patient was seen and examined. Ms. Robbins is a 87 year old female admitted to [facility] secondary to hemoptysis. Apparently she was hospitalized about 2 weeks or so ago after having been diagnosed with atrial fibrillation and her primary care provider's office. Apparently she was sent here for further assessment. Ultimately she was started Eliquis for treatment of her atrial fibrillation. There were copious amounts of blood in the oropharynx and she was intubated in order to protect her airway. Ultimately ENT determined that the bleeding was likely due to a lesion on the right nasal cavity. Pulmonary was involved to rule out a pulmonary etiology for the bleeding. She was since extubated. The Eliquis was stopped upon admission. Apparently an acute cerebral vascular accident occurred sometime between 5:30 yesterday evening and 8:00 in the evening which was when it was first noticed. More specific history is scant. CT scan of the brain was ordered last night which was interpreted by radiology as no acute intracranial abnormality. An MRI scan of the brain was ordered this morning which revealed an acute infarct in the right frontal lobe. MRI scan also reveals diffuse cortical atrophy and some scattered deep white matter changes. The patient however for the most part has been awake and alert. Past Med Surg Social Fam HX - Past Medical History Medical history: arthritis, atrial fibrillation, DVT, hypertension, thyroid disease, other Psychiatric history: anxiety - Past Surgical History Surgical History: cataract, cholecystectomy, hysterectomy Additional surgical history: cholecystectomy - Social History Smoking Status: Never smoker Smokeless Tobacco Status: No Alcohol use: none Drug use: none - Family History Mother Adopted: No Living Status: Hx Family Endocrine Disorder: Yes (DIABETES MELLITUS.) Medications and Allergies Cholecalciferol (Vitamin D3) [Vitamin D3] 1,000 unit PO DAILY 07/20/15 [History] Multivit-Min/FA/Lycopen/Lutein [Centrum Silver Tablet] 1 each PO DAILY 07/20/15 [History] Trihexyphenidyl [Artane] 1 mg PO TID 07/20/15 [History] Amitriptyline [Elavil] 25 mg PO BID 10/21/17 [History] Aspirin [Lo-Dose Aspirin EC] 81 mg PO DAILY 10/21/17 [History] Lactobacillus Acidophilus [Acidophilus Probiotic] 1 mg PO DAILY 10/21/17 [ History] Levothyroxine Sodium [Levoxyl] 75 mcg PO DAILY 10/21/17 [History] Losartan [Cozaar] 50 mg PO QPM 10/21/17 [History] Perphenazine 4 mg PO BID 10/21/17 [History] Wheat Dextrin [Benefiber] 1 each PO DAILY 10/21/17 [History] Albuterol Neb [AccuNeb] 0.63 mg IH Q6H PRN #100 inhsol 10/30/17 [Rx] Apixaban [Eliquis] 5 mg PO BID tablet 10/30/17 [Rx] Furosemide [Lasix] 20 mg PO DAILY #30 tablet 10/30/17 [Rx] Metoprolol [Lopressor] 25 mg PO BID tablet 10/30/17 [Rx] Calcium Carbonate/Vitamin D3 [Calcium 600 + Vit D Tablet] 1 tab PO DAILY [History] Diltiazem HCl [Diltiazem 24Hr Cd] 240 mg PO QAM 11/13/17 [History] Gabapentin [Neurontin] 600 mg PO HS 11/13/17 [History] Levofloxacin [Levaquin] 500 mg PO DAILY 11/13/17 [History] Omeprazole [PriLOSEC] 20 mg PO DAILY 11/13/17 [History] Potassium Chloride [Klor-Con 10] 10 meq PO DAILY 11/13/17 [History] 3 Allergy/AdvReac Type Severity Reaction Status Date / Time codeine Allergy unsure Verified 03/14/17 13:17 Sulfa (Sulfonamide Allergy Vomiting Verified 03/14/17 13:17 Antibiotics) All Systems: The remainder of the systems were reviewed and are negative Review of Systems: The balance of the systems review is negative. Physical Examination - Vital Signs Vital Signs: Initial Vital Signs Temp Pulse Resp BP Pulse Ox 97.5 F L 109 24 186/104 78 11/13/17 06:13 11/13/17 06:13 11/13/17 06:13 11/13/17 06:13 11/13/17 06:13 - Neurologic Detailed motor examination: other (There is flaccid weakness of the left upper extremity. I am not able to identify any flicker of movement of the entire left arm. Strength in the left lower extremity is fairly good.) Motor examination - right side: 5/5: deltoids, biceps, triceps, mycologist, hip flexors, tibialis Anterior, quadriceps, toe extension (EHL), plantarflexion Motor examination - left side: 4/5: quadriceps, tibialis Anterior, toe extension (EHL), plantarflexion Detailed sensory examination: other (The patient denies any sensory asymmetries at this time.) Reflex and gait examination: other (Deep tendon reflexes are 1 symmetrically of the biceps, triceps, and brachial radialis. Patellar reflexes are absent symmetrically. Achilles reflexes are absent symmetrically.) Mental Status Examination: She currently she is awake and alert. She is fully aware of her circumstances at the time. She is oriented 3. She does have a tad bit of motor impersistence. She does make eye contact and is engaging. She is not somnolent at this time. Results - Laboratory Findings CBC and BMP: 11/14/17 04:10 11/14/17 04:10 Abnormal lab findings: Abnormal lab results WBC 12.3 K/mcL (4.3-11.1) H 11/14/17 04:10 RBC 2.81 M/mcL (3.82-4.97) L 11/14/17 04:10 Hgb 7.7 g/dL (11.5-15.4) L 11/14/17 04:10 Hct 24.4 % (35.3-44.9) L 11/14/17 04:10 MCH 27.4 pg (28.0-33.3) L 11/14/17 04:10 RDW 15.7 % (11.5-14.5) H 11/14/17 04:10 Nucleated RBCs/100 WBC 0.2 /100 WBC (0) H 11/14/17 04:10 PT 13.4 Seconds (9.4-12.1) H 11/13/17 21:00 ABG pH 7.46 pH Units (7.32-7.45) H 11/14/17 04:30 ABG pO2 116 mmHg (85-104) H 11/14/17 04:30 ABG HCO3 28 mEq/L (21-27) H 11/14/17 04:30 ABG Total CO2 30 mEq/L (20-26) H 11/14/17 04:30 ABG O2 Saturation 99 % (95-98) H 11/14/17 04:30 ABG Base Excess 4 mEq/L (-2 to 3) H 11/14/17 04:30 BUN 24 mg/dL (8-23) H 11/14/17 04:10 BUN/Creatinine Ratio 36 (6-26) H 11/14/17 04:10 POC Glucose 103 mg/dL (70-99) H 11/14/17 11:18 Calcium 8.0 mg/dL (8.6-10.3) L 11/14/17 04:10 Creatine Kinase 18 Units/L (30-223) L 11/13/17 06:28 B-Natriuretic Peptide 439 pg/mL (Less than 100) H 11/13/17 06:28 Serum Total Protein 6.0 g/dL (6.4-8.9) L 11/13/17 06:28 Globulin 2.3 g/dL (2.4-3.5) L 11/13/17 06:28 Fluid Appearance Hazy (Clear) A 11/13/17 14:35 Consult Discharge Plan - Plan Referrals: Danette Real, [employer] [Primary Care Provider] -
[2017-11-14] MEDS ORDERED: *HR* Metoprolol 5 MG/5 ML VIAL IVP ONE (19:54)
[2017-11-15] MEDS: *HR* Metoprolol 5 MG/5 ML VIAL IVP PRN ×2 (02:11→07:20)
[2017-11-15 04:42] LABS: Basophils % 0.2 %; Eosinophils # 0.3 K/mcL (0.0-0.6); Eosinophils % 2.5 %; Hematocrit 26.3 % (35.3-44.9); Hemoglobin 8.5 g/dL (11.5-15.4); Immature Granulocytes % 0.5 % (0-4); Lymphocytes # 1.9 K/mcL (0.6-4.6); Lymphocytes % 14.8 %; Mean Corpuscular HGB Conc 32.3 g/dL (31.6-35.5); Mean Corpuscular Hemoglobin 27.5 pg (28.0-33.3); Mean Corpuscular Volume 85.1 fL (83.0-100.0); Monocytes # 0.7 K/mcL (0.0-1.3); Monocytes % 5.2 %; Neutrophils # 9.9 K/mcL (1.6-8.9); Platelet Count 218 K/mcL (140-400); Red Blood Count 3.09 M/mcL (3.82-4.97); Red Cell Distribution Width 15.1 % (11.5-14.5); Segmented Neutrophils % 76.8 %
[2017-11-15 04:56] LABS: BUN/Creatinine Ratio 20 (6-26); Blood Urea Nitrogen 11 mg/dL (8-23); Calcium 8.5 mg/dL (8.6-10.3); Carbon Dioxide 29 mEq/L (23-29); Chloride 98 mEq/L (98-107); Glucose 99 mg/dL (70-105); Osmolality,Calculated 277 (280-300); Sodium 134 mEq/L (136-145); eGFR For African Americans > 60 (> 60); eGFR For Non-African Americans > 60 (> 60)
[2017-11-15] MEDS ORDERED: Potassium Phosphate 44 MEQ in 0.9 % Sodium Chloride 250 ML IVPB PRN (07:13)
[2017-11-15 07:32] LABS: Magnesium 1.6 mg/dL (1.6-2.6); Phosphorous 3.3 mg/dL (2.7-4.5)
--- NOTE | 2017-11-15 07:43 | Pulmonology Progress Note ---
<TashGrace M - Last Filed: 11/15/17 09:32> Date of Encounter: 11/15/17 Objective PUL Vital signs: Last Vital Signs Temp 97.9 F 11/15/17 07:27 Pulse 101 11/15/17 09:00 Resp 14 11/15/17 09:00 BP 173/102 11/15/17 09:00 Pulse Ox 93 11/15/17 09:00 Results - Laboratory Findings CBC and BMP: 11/15/17 04:20 11/15/17 04:20 ABG ABG pH 7.46 pH Units (7.32-7.45) H 11/14/17 04:30 ABG pCO2 40 mmHg (35-45) 11/14/17 04:30 ABG pO2 116 mmHg (85-104) H 11/14/17 04:30 ABG O2 Saturation 99 % (95-98) H 11/14/17 04:30 PT/INR, D-dimer PT 13.4 Seconds (9.4-12.1) H 11/13/17 21:00 D-Dimer 244 ng/mLFEU (0-500) 11/13/17 06:28 Abnormal lab findings: Abnormal lab results WBC 12.9 K/mcL (4.3-11.1) H 11/15/17 04:20 RBC 3.09 M/mcL (3.82-4.97) L 11/15/17 04:20 Hgb 8.5 g/dL (11.5-15.4) L 11/15/17 04:20 Hct 26.3 % (35.3-44.9) L 11/15/17 04:20 MCH 27.5 pg (28.0-33.3) L 11/15/17 04:20 RDW 15.1 % (11.5-14.5) H 11/15/17 04:20 Neutrophils # 9.9 K/mcL (1.6-8.9) H 11/15/17 04:20 Nucleated RBCs/100 WBC 0.2 /100 WBC (0) H 11/14/17 04:10 PT 13.4 Seconds (9.4-12.1) H 11/13/17 21:00 ABG pH 7.46 pH Units (7.32-7.45) H 11/14/17 04:30 ABG pO2 116 mmHg (85-104) H 11/14/17 04:30 ABG HCO3 28 mEq/L (21-27) H 11/14/17 04:30 ABG Total CO2 30 mEq/L (20-26) H 11/14/17 04:30 ABG O2 Saturation 99 % (95-98) H 11/14/17 04:30 ABG Base Excess 4 mEq/L (-2 to 3) H 11/14/17 04:30 Sodium 134 mEq/L (136-145) L 11/15/17 04:20 Potassium 3.0 mEq/L (3.5-5.1) L 11/15/17 04:20 Creatinine 0.56 mg/dL (0.60-1.20) L 11/15/17 04:20 POC Glucose 110 mg/dL (70-99) H 11/14/17 23:22 Calculated Osmolality 277 (280-300) L 11/15/17 04:20 Calcium 8.5 mg/dL (8.6-10.3) L 11/15/17 04:20 Creatine Kinase 18 Units/L (30-223) L 11/13/17 06:28 B-Natriuretic Peptide 439 pg/mL (Less than 100) H 11/13/17 06:28 Serum Total Protein 6.0 g/dL (6.4-8.9) L 11/13/17 06:28 Globulin 2.3 g/dL (2.4-3.5) L 11/13/17 06:28 Fluid Appearance Hazy (Clear) A 11/13/17 14:35 - Microbiology Findings Microbiology Findings: Microbiology, Last 48 Hours 11/13/17 14:35 Gram Stain - Final Right Lower Lobe Lung Respiratory Culture - Preliminary No growth. - Clinical Findings Intake & Output: Intake & Output 11/14/17 11/15/17 11/15/17 23:59 07:59 15:59 Intake Total 1000 / 1000 1000 / 1000 Output Total 900 / 900 2200 / 2200 Balance 100 / 100 -2200 / -2200 1000 / 1000 Weight 64.4 kg Consult Discharge Plan - Plan Referrals: Danette Real, FINANCIAL ACCOUNTANT [Primary Care Provider] - - Attending Attestation I examined this patient and my medical decision-making was reviewed with the Resident Physician. I agree with the documented findings, disposition and treatment plan as described except to the extent set forth below. Patient seen and examined. Labs, radiology, chart personally reviewed. 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 Cadet neurology input. Pulmonary: Acceptable oxygenation and ventilation. ENT follow-up regarding epistaxis and removal of nasal packing. Cardiovascular: Blood pressure needs to be on the higher side and would suspect aspirin would be reasonable. GI: Nutrition per dietary and GI prophylaxis per routine. Swallowing evaluation Heme: DVT prophylaxis per routine Renal; urine out put and renal funtion reviewed Endorcine: blood glucose is monitored Lines: all lines checked and no evidence of infections Skin: skin care to prevent pressure ulcers per nursing routine care If remained stable we will transfer patient out of ICU. She will need physical and occupational therapy. <Gurdeep Menjivar - Last Filed: 11/15/17 11:55> Date of Encounter: 11/15/17 Time of Encounter: 07:43 Assessment and Plan (1) Epistaxis Current Visit: Yes Status: Acute ENT was consulted and agreed that the likely source of her hemoptysis was a right-sided epistaxis. 1. Doing well after extubation 2. Bronchoscopy did not show a pulmonary source. 3. HGB have remained stable 4. ENT plan to remove L packing today and R in another 2-3 days 5. Will plan to restart anti-platelet medication today and will discuss when to restart anti-coagulation 6. Plan to transfer out of ICU this afternoon (2) Respiratory failure Current Visit: Yes Status: Acute 1. Secondary to epistaxis 2. Intubated for airway protection and since extubated and doing well 3. Continued supportive care 4. Remove olvera today 5. BAL and BCX are NGTD but will continue ABX that she was on previously for PNA and should also cover for her nasal packing Qualifiers: Chronicity: acute Respiratory failure complication: hypoxia Qualified Code(s): J96.01 - Acute respiratory failure with hypoxia (3) Right hemisphere, cerebral infarction Current Visit: Yes Status: Acute 1. Consistent with clinical exam that developed overnight on 11/13. MRI showed infarct on 11/14 but unclear etiology at this time. 2. Continued L arm weakness 3. Neurology consulted and following, will start medical optimization today now that patient has passed her swallow evaluation 4. Will need PT consulted as well 5. Need to discuss when to restart anti-coagulation 6. Carotid US ordered and pending, will remove R IJ CVC today prior to imaging. Subjective Principal diagnosis: Epistaxis Interval history: Patient's MRI came back yesterday showing acute infarct. Neurology was consulted and did recommend medical management. Will be adding back her anti- platelet medications today. She has had continued L arm weakness and can move it but is significantly weaker than before. Plan to get carotid US today. Denies any CP/SOB at this time. No abdominal pain. She has had some nausea which would be expected due to the irritation of blood in her stomach. Moving lower extremities well. Objective PUL Vital signs: Last Vital Signs Temp 97.9 F 11/15/17 07:27 Pulse 96 11/15/17 07:00 Resp 16 11/15/17 07:00 BP 193/102 11/15/17 07:00 Pulse Ox 93 11/15/17 07:00 General appearance: no acute distress, alert Eyes: nonicteric ENT: oropharynx dry Neck: supple Effort: normal Auscultation: bilateral: diminished breath sounds Cardiovascular: regular rate and rhythm Gastrointestinal: normoactive bowel sounds Integumentary: normal Extremities: no cyanosis, edema Musculoskeletal: no deformities normal mental status, pupils equal and round, other (L arm weakness, normal strength elsewhere ) mood appropriate, affect normal Results - Laboratory Findings CBC and BMP: 11/15/17 04:20 11/15/17 04:20 ABG ABG pH 7.46 pH Units (7.32-7.45) H 11/14/17 04:30 ABG pCO2 40 mmHg (35-45) 11/14/17 04:30 ABG pO2 116 mmHg (85-104) H 11/14/17 04:30 ABG O2 Saturation 99 % (95-98) H 11/14/17 04:30 PT/INR, D-dimer PT 13.4 Seconds (9.4-12.1) H 11/13/17 21:00 D-Dimer 244 ng/mLFEU (0-500) 11/13/17 06:28 Abnormal lab findings: Abnormal lab results WBC 12.9 K/mcL (4.3-11.1) H 11/15/17 04:20 RBC 3.09 M/mcL (3.82-4.97) L 11/15/17 04:20 Hgb 8.5 g/dL (11.5-15.4) L 11/15/17 04:20 Hct 26.3 % (35.3-44.9) L 11/15/17 04:20 MCH 27.5 pg (28.0-33.3) L 11/15/17 04:20 RDW 15.1 % (11.5-14.5) H 11/15/17 04:20 Neutrophils # 9.9 K/mcL (1.6-8.9) H 11/15/17 04:20 Nucleated RBCs/100 WBC 0.2 /100 WBC (0) H 11/14/17 04:10 PT 13.4 Seconds (9.4-12.1) H 11/13/17 21:00 ABG pH 7.46 pH Units (7.32-7.45) H 11/14/17 04:30 ABG pO2 116 mmHg (85-104) H 11/14/17 04:30 ABG HCO3 28 mEq/L (21-27) H 11/14/17 04:30 ABG Total CO2 30 mEq/L (20-26) H 11/14/17 04:30 ABG O2 Saturation 99 % (95-98) H 11/14/17 04:30 ABG Base Excess 4 mEq/L (-2 to 3) H 11/14/17 04:30 Sodium 134 mEq/L (136-145) L 11/15/17 04:20 Potassium 3.0 mEq/L (3.5-5.1) L 11/15/17 04:20 Creatinine 0.56 mg/dL (0.60-1.20) L 11/15/17 04:20 POC Glucose 110 mg/dL (70-99) H 11/14/17 23:22 Calculated Osmolality 277 (280-300) L 11/15/17 04:20 Calcium 8.5 mg/dL (8.6-10.3) L 11/15/17 04:20 Creatine Kinase 18 Units/L (30-223) L 11/13/17 06:28 B-Natriuretic Peptide 439 pg/mL (Less than 100) H 11/13/17 06:28 Serum Total Protein 6.0 g/dL (6.4-8.9) L 11/13/17 06:28 Globulin 2.3 g/dL (2.4-3.5) L 11/13/17 06:28 Fluid Appearance Hazy (Clear) A 11/13/17 14:35 - Microbiology Findings Microbiology Findings: Microbiology, Last 48 Hours 11/13/17 14:35 Gram Stain - Final Right Lower Lobe Lung Respiratory Culture - Preliminary No growth. - Clinical Findings Intake & Output: Intake & Output 11/14/17 11/14/17 11/15/17 15:59 23:59 07:59 Intake Total 348 / 348 1000 / 1000 Output Total 1800 / 1800 900 / 900 2200 / 2200 Balance -1452 / -1452 100 / 100 -2200 / -2200 Weight 64.4 kg - VTE Documentation of Mechanical Device: Intermittent pneumatic compression device
[2017-11-15 08:32] LABS: VBG Ionized Calcium 1.15 mmol/L (1.15-1.35)
[2017-11-15] MEDS: Ringers Solution, Lactated 1,000 ML IVC SCH (09:00)
[2017-11-15] MEDS ORDERED: Aspirin Enteric Coated 81 MG Tablet PO SCH (09:00)
[2017-11-15] MEDS ORDERED: Levofloxacin 250 MG/50 ML 250 MG/50 ML BAG IVPB SCH (09:00)
[2017-11-15] MEDS ORDERED: *HR* Heparin 5,000 UNIT/ML VIAL SQ SCH (09:00)
[2017-11-15] MEDS: Ondansetron 4 MG/2 ML VIAL IVP PRN (09:03)
[2017-11-15] MEDS: Pantoprazole 40 MG VIAL IVP SCH (09:03)
--- NOTE | 2017-11-15 10:30 | ENT - Progress Note ---
Date of Encounter: 11/15/17 Time of Encounter: 10:25 - Assessment and Plan (1) Epistaxis Current Visit: Yes Status: Acute Likely source of bleeding that caused aspiration and need for intubation. Now extubated, doing well with exception of new neurologic deficits including left upper extremity. -From epistaxis standpoint, she is hemostatic. -Left pack removed today during exam. -Right pack to remain in place for 5 days, until Saturday, especially in light of re-starting antiplatelet and anticoagulation medications. I am ok with restarting any of these meds with the understood risk that bleeding could re- occur with need for new packs and potential OR for control. -Recommend staph coverage with abx while packs are in place. -Will plan to pull right pack on Saturday -Please call with any questions or concerns over the weekend. (2) Hemoptysis Current Visit: Yes Status: Acute (3) Respiratory failure Current Visit: Yes Status: Acute s/p extubation this am Qualifiers: Chronicity: acute Respiratory failure complication: hypoxia Qualified Code(s): J96.01 - Acute respiratory failure with hypoxia (4) A-fib Current Visit: No Status: Acute Qualifiers: Atrial fibrillation type: unspecified Qualified Code(s): I48.91 - Unspecified atrial fibrillation Subjective Patient reports: other (no bleeding from nose or mouth overnight. Still with left arm motor deficit.) Objective Initial Vital Signs Temp Pulse Resp BP Pulse Ox 97.5 F L 109 24 186/104 78 11/13/17 06:13 11/13/17 06:13 11/13/17 06:13 11/13/17 06:13 11/13/17 06:13 - General physical appearance well developed, well nourished, no distress - ENT normal pinna, Other (left rhinorocket removed during exam. Right rhinorocket still in place with blood around pack. No active nasal bleeding after pack removal. Oropharynx completely free of blood after pack removal. She has very dry oral mucosa.) - Labs 11/15/17 04:20 11/15/17 04:20 Diabetes panel 11/15/17 Range/Units 04:20 Sodium 134 L (136-145) mEq/L Potassium 3.0 L (3.5-5.1) mEq/L Chloride 98 (98-107) mEq/L Carbon Dioxide 29 (23-29) mEq/L BUN 11 (8-23) mg/dL Creatinine 0.56 L (0.60-1.20) mg/dL Glucose 99 (70-105) mg/dL Calcium 8.5 L (8.6-10.3) mg/dL Calcium panel 11/15/17 Range/Units 04:20 Calcium 8.5 L (8.6-10.3) mg/dL Phosphorus 3.3 (2.7-4.5) mg/dL Pituitary panel 11/15/17 Range/Units 04:20 Sodium 134 L (136-145) mEq/L Potassium 3.0 L (3.5-5.1) mEq/L Chloride 98 (98-107) mEq/L Carbon Dioxide 29 (23-29) mEq/L BUN 11 (8-23) mg/dL Creatinine 0.56 L (0.60-1.20) mg/dL Glucose 99 (70-105) mg/dL Calcium 8.5 L (8.6-10.3) mg/dL Adrenal panel 11/15/17 Range/Units 04:20 Sodium 134 L (136-145) mEq/L Potassium 3.0 L (3.5-5.1) mEq/L Chloride 98 (98-107) mEq/L Carbon Dioxide 29 (23-29) mEq/L BUN 11 (8-23) mg/dL Creatinine 0.56 L (0.60-1.20) mg/dL Glucose 99 (70-105) mg/dL Calcium 8.5 L (8.6-10.3) mg/dL - VTE Documentation of Mechanical Device: Intermittent pneumatic compression device Consult Discharge Plan - Plan Referrals: Danette Real, SPUDDER [Primary Care Provider] -
[2017-11-15] MEDS: Dexmedetomidine HCl 400 MCG/100 ML MLS IVC SCH (13:30)
--- NOTE | 2017-11-15 14:48 | Neurology Progress Note ---
Date of Encounter: 11/15/17 Time of Encounter: 08:00 Assessment and Plan (1) Right hemisphere, cerebral infarction Current Visit: Yes Status: Acute Acute right cerebral hemispheric infarct etiology unknown suspect perhaps cardioembolic, versus thromboembolic, versus intracranial thrombosis. Ultimately ideally anticoagulation should be resumed whenever deemed appropriate by ENT. The carotid Doppler study is yet pending. If the right carotid artery reveals any degree of stenosis which would be considered significant or irregular plaque then vascular should be consulted. Otherwise I would recommend having the patient engage in physical therapy as soon as possible. She will likely also need occupational therapy. I will reevaluate her at your request. Subjective Principal diagnosis: Epistaxis Interval history: The chart was reviewed, the patient was seen and examined. Apparently she had an uneventful night. Carotid duplex Doppler study is still pending. On my entering the room she awakened briskly to voice, she denies any new problems. Speech is fluent. She still has significant weakness of the left upper extremity however she is not able to raise the arm ever so slightly against gravity. Objective - Constitutional Vitals: Temp Pulse Resp BP Pulse Ox 98.2 F 99 16 183/90 93 11/15/17 11:40 11/15/17 13:00 11/15/17 13:00 11/15/17 13:00 11/15/17 13:00 - Neurological Exam Motor Examination: Present: other (There is flaccid weakness of the left upper extremity. I am not able to identify any flicker of movement of the entire left arm. Strength in the left lower extremity is fairly good.) Motor examination - right side: 5/5: deltoids, biceps, triceps, quality intern, hip flexors, tibialis Anterior, quadriceps, toe extension (EHL), plantarflexion Motor examination - left side: 4/5: quadriceps, tibialis Anterior, toe extension (EHL), plantarflexion Sensation intact: Present: other (The patient denies any sensory asymmetries at this time.) Reflex and gait examination: other (Deep tendon reflexes are 1 symmetrically of the biceps, triceps, and brachial radialis. Patellar reflexes are absent symmetrically. Achilles reflexes are absent symmetrically.) Mental Status Examination: Present: awake, alert, oriented to person, oriented to place, oriented to time, follows commands appropriately, answers questions appropriately Cranial nerve examination: Present: PERRL, EOMI, visual garcia intact, sensory to face intact, mastication intact, no facial asymmetry is present, no dysarthria, hearing is intact symmetrically - VTE Documentation of Mechanical Device: Intermittent pneumatic compression device Results - Laboratory Findings CBC and BMP: 11/15/17 04:20 11/15/17 04:20 Abnormal lab findings: Abnormal lab results WBC 12.9 K/mcL (4.3-11.1) H 11/15/17 04:20 RBC 3.09 M/mcL (3.82-4.97) L 11/15/17 04:20 Hgb 8.5 g/dL (11.5-15.4) L 11/15/17 04:20 Hct 26.3 % (35.3-44.9) L 11/15/17 04:20 MCH 27.5 pg (28.0-33.3) L 11/15/17 04:20 RDW 15.1 % (11.5-14.5) H 11/15/17 04:20 Neutrophils # 9.9 K/mcL (1.6-8.9) H 11/15/17 04:20 Nucleated RBCs/100 WBC 0.2 /100 WBC (0) H 11/14/17 04:10 PT 13.4 Seconds (9.4-12.1) H 11/13/17 21:00 ABG pH 7.46 pH Units (7.32-7.45) H 11/14/17 04:30 ABG pO2 116 mmHg (85-104) H 11/14/17 04:30 ABG HCO3 28 mEq/L (21-27) H 11/14/17 04:30 ABG Total CO2 30 mEq/L (20-26) H 11/14/17 04:30 ABG O2 Saturation 99 % (95-98) H 11/14/17 04:30 ABG Base Excess 4 mEq/L (-2 to 3) H 11/14/17 04:30 Sodium 134 mEq/L (136-145) L 11/15/17 04:20 Potassium 3.0 mEq/L (3.5-5.1) L 11/15/17 04:20 Creatinine 0.56 mg/dL (0.60-1.20) L 11/15/17 04:20 POC Glucose 113 mg/dL (70-99) H 11/15/17 11:32 Calculated Osmolality 277 (280-300) L 11/15/17 04:20 Calcium 8.5 mg/dL (8.6-10.3) L 11/15/17 04:20 Creatine Kinase 18 Units/L (30-223) L 11/13/17 06:28 B-Natriuretic Peptide 439 pg/mL (Less than 100) H 11/13/17 06:28 Serum Total Protein 6.0 g/dL (6.4-8.9) L 11/13/17 06:28 Globulin 2.3 g/dL (2.4-3.5) L 11/13/17 06:28 Fluid Appearance Hazy (Clear) A 11/13/17 14:35 Consult Discharge Plan - Plan Referrals: Danette Real, PAROLE HEARING OFFICER [Primary Care Provider] -
[2017-11-15] MEDS ORDERED: Albuterol Neb 0.63 MG/3 ML VIAL IH PRN (16:39)
[2017-11-15] MEDS ORDERED: Naloxone 0.4 MG/ML INJ IVP PRN (16:39)
[2017-11-15] MEDS ORDERED: Ondansetron 4 MG/2 ML VIAL IVP PRN (16:39)
[2017-11-15] MEDS: *HR* Heparin 5,000 UNIT/ML VIAL SQ SCH (18:12)
[2017-11-16 04:01] LABS: Basophils % 0.3 %; Eosinophils # 0.6 K/mcL (0.0-0.6); Eosinophils % 5.9 %; Hematocrit 24.7 % (35.3-44.9); Immature Granulocytes % 0.4 % (0-4); Lymphocytes # 2.1 K/mcL (0.6-4.6); Lymphocytes % 22.1 %; Mean Corpuscular HGB Conc 32.4 g/dL (31.6-35.5); Mean Corpuscular Hemoglobin 27.7 pg (28.0-33.3); Mean Corpuscular Volume 85.5 fL (83.0-100.0); Mean Platelet Volume 9.8 fL (9.4-12.4); Monocytes # 0.6 K/mcL (0.0-1.3); Neutrophils # 6.3 K/mcL (1.6-8.9); Platelet Count 195 K/mcL (140-400); Red Blood Count 2.89 M/mcL (3.82-4.97); Red Cell Distribution Width 14.9 % (11.5-14.5); Segmented Neutrophils % 65.3 %
[2017-11-16 04:17] LABS: BUN/Creatinine Ratio 16 (6-26); Blood Urea Nitrogen 11 mg/dL (8-23); Calcium 8.3 mg/dL (8.6-10.3); Carbon Dioxide 30 mEq/L (23-29); Chloride 99 mEq/L (98-107); Glucose 116 mg/dL (70-105); Osmolality,Calculated 276 (280-300); Potassium 3.3 mEq/L (3.5-5.1); Sodium 133 mEq/L (136-145); eGFR For African Americans > 60 (> 60); eGFR For Non-African Americans > 60 (> 60)
[2017-11-16] MEDS: *HR* Heparin 5,000 UNIT/ML VIAL SQ SCH (05:49)
[2017-11-16] MEDS: Levofloxacin 250 MG/50 ML 250 MG/50 ML BAG IVPB SCH (07:59)
[2017-11-16] MEDS: Pantoprazole 40 MG VIAL IVP SCH (07:59)
[2017-11-16] MEDS: Aspirin Enteric Coated 81 MG Tablet PO SCH (07:59)
[2017-11-16] MEDS: Multivit/Ca/Min/Fe/FA 1 TAB TABLET PO SCH (09:14)
[2017-11-16] MEDS: Lactobacillus 1 EACH CAP.SPRINK PO SCH (09:14)
[2017-11-16] MEDS: Apixaban 2.5 MG TABLET PO SCH ×2 (09:14→20:19)
[2017-11-16] MEDS: Cholecalciferol (D-3) 1,000 UNIT TABLET PO SCH (09:14)
--- NOTE | 2017-11-16 09:21 | Event Note ---
<Gurdeep Menjivar - Last Filed: 11/16/17 09:18> Date of Encounter: 11/16/17 Time of Encounter: 09:18 Patient is transferred to hospitalist service as she has been doing well. Pharmacy came by yesterday to let us know that the patient was given IV TXA ( not topical for epistaxis) and was also given FEIBA. This certainly could be a source of her stroke if the rest of her workup is unremarkable. Main decision point at this time is if/when/what to restart anti-coagulation. <Grace Bianchi - Last Filed: 11/16/17 13:33> Date of Encounter: 11/16/17 I examined this patient and my medical decision-making was reviewed with the Resident Physician. I agree with the documented findings, disposition and treatment plan as described except to the extent set forth below. Patient seen and examined. Labs, radiology, chart personally reviewed. Agree with resident's history and physical, assessment, plan with following comments: [employer]PENTER [employer] TANK ERECTING: Patient follows commands, she still have some confusion. Pulmonary: Acceptable oxygenation and ventilation, however has some mild respiratory distress and may benefit from diuresis Patient will be seen in follow-up by hospitalist.
--- NOTE | 2017-11-16 09:32 | Internal Med Progress Note ---
Date of Encounter: 11/16/17 Time of Encounter: 09:32 - Assessment and plan (1) A-fib Current Visit: Yes Status: Chronic Assessment and plan: resume home dose of diltiazem 240mg daily Continue to monitor Resume eliqui, monitor Hb Qualifiers: Atrial fibrillation type: chronic Qualified Code(s): I48.2 - Chronic atrial fibrillation (2) Diabetes mellitus type 2 in nonobese Current Visit: Yes Status: Chronic Assessment and plan: FSACHS Sliding scale insulin ADA diet (3) DVT prophylaxis Current Visit: Yes Status: Acute Assessment and plan: on eliquis, d/c heparin (4) Epistaxis Current Visit: Yes Status: Acute Assessment and plan: Resolved s/p TPA, Packing by ENT ENT following R nasal pack in-situ For removal by ENT 11/18 Continue to monitor (5) GERD (gastroesophageal reflux disease) Current Visit: Yes Status: Chronic Assessment and plan: continue home meds Qualifiers: Esophagitis presence: without esophagitis Qualified Code(s): K21.9 - Gastro -esophageal reflux disease without esophagitis (6) Respiratory failure Current Visit: Yes Status: Acute Assessment and plan: Secondary to epistaxis Intubated for airway protection and since extubated and doing well Continued supportive care BAL and BCX are NGTD but will continue ABX that she was on previously for PNA and should also cover for her nasal packing Qualifiers: Chronicity: acute Respiratory failure complication: hypoxia Qualified Code(s): J96.01 - Acute respiratory failure with hypoxia (7) Right hemisphere, cerebral infarction Current Visit: Yes Status: Acute Assessment and plan: PTOT eval For SNF Fall precautions carotid Doppler US with no significant plaques bilaterally Continue aspirin Add lipitor (8) Anemia Current Visit: Yes Status: Chronic Assessment and plan: Hb at baseline, continue to monitor Qualifiers: Anemia type: unspecified type Qualified Code(s): D64.9 - Anemia, unspecified - Time Spent With Patient Total time spent is greater than 50% in coordination of care (as documented) at patient's floor/unit and/or counseling patient: - Subjective Interval history: Seen and evaluated at the bedside 87 F with HTN, Afib, HLD She was admitted to the ICU folowing acute hypoxic resp failure , intubated for airway protection due to epistaxis Hosp course significant for development of Acute R ischemic CVA with residual LUE weakness She is extbated 11/15, no new events, stable on room air We will resume anticoagulation as recommended by neuro/ENT Per ENT R nasal pack will be discontinued 11/18 - Constitutional Vitals: Temp Pulse Resp BP Pulse Ox 98.1 F 101 16 148/80 93 11/16/17 04:29 11/16/17 07:00 11/16/17 06:00 11/16/17 06:00 11/16/17 06:00 General appearance: Present: A&O X 3, pleasant, no acute distress - Head Head exam: Present: atraumatic, normocephalic - Eye Eye exam: Present: PERRL, conjuntiva pink, sclera anicteric Pupils: Present: PERRL - Neck Neck exam general surgery: Present: supple, trachea midline. Absent: lymphadenopathy - Respiratory Respiratory exam: Present: CTAB. Absent: accessory muscle use, rales, rhonchi, wheezes - Cardiovascular Cardiovascular exam: Present: RRR, +S1, +S2. Absent: diastolic murmur, gallop, rubs, systolic murmur - GI/Abdominal GI/Abdominal exam: Present: normal bowel sounds, soft, no peritoneal signs. Absent: distended, tenderness - Extremities Exam Extremities exam: Present: warm, radial pulses palpable and symmetrical. Absent : calf tenderness, cyanotic, pedal edema - Neurological Exam Neurological exam: Present: alert, motor sensory deficit (LUE weakness), oriented X3, pronater drift. Absent: facial droop, speech deficit - Skin Skin exam: Present: dry, intact Internal Medicine: Result - Labs CBC & Chem 7: 11/16/17 03:45 11/16/17 03:45 Labs: Short CBC 11/16/17 Range/Units 03:45 WBC 9.7 (4.3-11.1) K/mcL Hgb 8.0 L (11.5-15.4) g/dL Hct 24.7 L (35.3-44.9) % Plt Count 195 (140-400) K/mcL Neutrophils # 6.3 (1.6-8.9) K/mcL BMP 11/16/17 03:45 Sodium 133 L Potassium 3.3 L Chloride 99 Carbon Dioxide 30 H BUN 11 Creatinine 0.67 Glucose 116 H Calcium 8.3 L - ABG Interpretation ABG results: ABG ABG pH 7.46 pH Units (7.32-7.45) H 11/14/17 04:30 ABG pCO2 40 mmHg (35-45) 11/14/17 04:30 ABG pO2 116 mmHg (85-104) H 11/14/17 04:30 ABG O2 Saturation 99 % (95-98) H 11/14/17 04:30 PT/INR, D-dimer PT 13.4 Seconds (9.4-12.1) H 11/13/17 21:00 D-Dimer 244 ng/mLFEU (0-500) 11/13/17 06:28 - Impressions Impressions Chest X-Ray 11/14/17 04:00 IMPRESSION: Stable life-support devices. Stable patchy lower lobe consolidation with no acute abnormality. D/ / 11/15/2017 07:00:45 Juan David Foreman MD / deisi Interpreting Provider: Juan David Foreman MD - VTE Documentation of Mechanical Device: Intermittent pneumatic compression device Consult Discharge Plan - Plan Referrals: Danette Real, TEST AND BALANCE ENGINEER [Primary Care Provider] -
[2017-11-16] MEDS ORDERED: Dextrose Gel 15 GM/37.5 ML TUBE PO PRN ×2 (10:55)
[2017-11-16] MEDS ORDERED: D5% in Water 1,000 ML IVC PRN (10:55)
[2017-11-16] MEDS ORDERED: *HR* Dextrose 50 % in Water (Syg) 50 ML SYRINGE IVP PRN (10:55)
[2017-11-16] MEDS: Diltiazem CD (24hr) 240 MG CAPSULE PO SCH (11:34)
[2017-11-16] MEDS: Insulin LISPRO 300 UNITS/3 ML VIAL SQ SCH ×3 (12:33→23:55)
[2017-11-16] MEDS: Gabapentin 300 MG CAPSULE PO SCH (20:18)
[2017-11-17 07:05] LABS: Basophils % 0.4 %; Eosinophils # 0.5 K/mcL (0.0-0.6); Eosinophils % 4.9 %; Hematocrit 23.8 % (35.3-44.9); Hemoglobin 7.6 g/dL (11.5-15.4); Immature Granulocytes % 0.6 % (0-4); Lymphocytes % 18.6 %; Mean Corpuscular HGB Conc 31.9 g/dL (31.6-35.5); Mean Corpuscular Hemoglobin 27.9 pg (28.0-33.3); Mean Corpuscular Volume 87.5 fL (83.0-100.0); Mean Platelet Volume 9.8 fL (9.4-12.4); Monocytes # 0.7 K/mcL (0.0-1.3); Monocytes % 6.7 %; Neutrophils # 7.3 K/mcL (1.6-8.9); Platelet Count 195 K/mcL (140-400); Red Blood Count 2.72 M/mcL (3.82-4.97); Red Cell Distribution Width 15.8 % (11.5-14.5); Segmented Neutrophils % 68.8 %
[2017-11-17 07:16] LABS: BUN/Creatinine Ratio 21 (6-26); Blood Urea Nitrogen 14 mg/dL (8-23); Calcium 8.3 mg/dL (8.6-10.3); Carbon Dioxide 29 mEq/L (23-29); Chloride 102 mEq/L (98-107); Glucose 130 mg/dL (70-105); Osmolality,Calculated 282 (280-300); Potassium 3.6 mEq/L (3.5-5.1); Sodium 135 mEq/L (136-145); eGFR For African Americans > 60 (> 60); eGFR For Non-African Americans > 60 (> 60)
[2017-11-17] MEDS: Cholecalciferol (D-3) 1,000 UNIT TABLET PO SCH (08:56)
[2017-11-17] MEDS: Insulin LISPRO 300 UNITS/3 ML VIAL SQ SCH ×4 (08:56→21:02)
[2017-11-17] MEDS: Aspirin Enteric Coated 81 MG Tablet PO SCH (08:57)
[2017-11-17] MEDS: Diltiazem CD (24hr) 240 MG CAPSULE PO SCH (08:57)
[2017-11-17] MEDS: Multivit/Ca/Min/Fe/FA 1 TAB TABLET PO SCH (08:57)
[2017-11-17] MEDS: Pantoprazole 40 MG VIAL IVP SCH (08:57)
[2017-11-17] MEDS: Lactobacillus 1 EACH CAP.SPRINK PO SCH (08:57)
[2017-11-17] MEDS: Apixaban 2.5 MG TABLET PO SCH ×2 (08:57→21:02)
[2017-11-17] MEDS: Levofloxacin 250 MG/50 ML 250 MG/50 ML BAG IVPB SCH (08:58)
--- NOTE | 2017-11-17 17:17 | Internal Med Progress Note ---
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 Due to the bleeding she developed aspiration and acute respiratory failure. She was on ventilator for some time. See notes from ENT service. See notes from intensive care service. She has underlying atrial fibrillation. We couldn't use anticoagulation when she was bleeding from her nose. She developed stroke in the territory of right middle cerebral artery. See neurologic consultation. She is on apixaban. Her heart rate is under control. Will continue Diltiazem. She needs long-term physical therapy. She needs a referral to senior care facility. (2) A-fib Current Visit: Yes Status: Chronic Assessment and plan: Her heart rate is under control. Will continue diltiazem. Will continue apixaban. Qualifiers: Atrial fibrillation type: chronic Qualified Code(s): I48.2 - Chronic atrial fibrillation (3) T2DM (type 2 diabetes mellitus) Current Visit: Yes Status: Acute Assessment and plan: It is under fair control. Will continue diabetic diet and Humalog. Qualifiers: Diabetes mellitus dial marker insulin use: without correction use Diabetes mellitus complication status: without complication Qualified Code(s): E11.9 - Type 2 diabetes mellitus without complications (4) Hypothyroidism Current Visit: Yes Status: Acute Assessment and plan: Clinically under control. Will continue synthroid. Qualifiers: Hypothyroidism type: acquired Qualified Code(s): E03.9 - Hypothyroidism, unspecified - Time Spent With Patient Total time spent is greater than 50% in coordination of care (as documented) at patient's floor/unit and/or counseling patient: 25 - 35 minutes - Subjective Interval history: The patient feels good. However, she continues to have no movements in her left upper extremity. She spent a couple hours sitting next to her bed today. She has normal speech and swallowing. She doesn't have any weakness in left lower extremity. - Constitutional Vitals: Temp Pulse Resp BP Pulse Ox 97.9 F 84 18 142/63 97 11/17/17 16:57 11/17/17 16:57 11/17/17 16:57 11/17/17 16:57 11/17/17 16:57 General appearance: Present: A&O X 3, pleasant, no acute distress - Respiratory Respiratory exam: Present: CTAB. Absent: accessory muscle use, rales, rhonchi, wheezes - Cardiovascular Cardiovascular exam: Present: irregular rhythm, +S1, +S2. Absent: diastolic murmur, gallop, rubs, systolic murmur - GI/Abdominal GI/Abdominal exam: Present: normal bowel sounds, soft, no peritoneal signs. Absent: distended, tenderness - Skin Skin exam: Present: dry, intact Internal Medicine: Result - Labs CBC & Chem 7: 11/17/17 04:00 11/17/17 04:00 Labs: Short CBC 11/17/17 Range/Units 04:00 WBC 10.6 (4.3-11.1) K/mcL Hgb 7.6 L (11.5-15.4) g/dL Hct 23.8 L (35.3-44.9) % Plt Count 195 (140-400) K/mcL Neutrophils # 7.3 (1.6-8.9) K/mcL BMP 11/17/17 04:00 Sodium 135 L Potassium 3.6 Chloride 102 Carbon Dioxide 29 BUN 14 Creatinine 0.67 Glucose 130 H Calcium 8.3 L - ABG Interpretation ABG results: ABG ABG pH 7.46 pH Units (7.32-7.45) H 11/14/17 04:30 ABG pCO2 40 mmHg (35-45) 11/14/17 04:30 ABG pO2 116 mmHg (85-104) H 11/14/17 04:30 ABG O2 Saturation 99 % (95-98) H 11/14/17 04:30 PT/INR, D-dimer PT 13.4 Seconds (9.4-12.1) H 11/13/17 21:00 D-Dimer 244 ng/mLFEU (0-500) 11/13/17 06:28 - VTE Documentation of Mechanical Device: Intermittent pneumatic compression device Consult Discharge Plan - Plan Referrals: Danette Real, ELECTROCARDIOGRAPHIC TECHNICIAN [Primary Care Provider] -
[2017-11-17] MEDS: Gabapentin 300 MG CAPSULE PO SCH (21:02)
[2017-11-18] MEDS: Pantoprazole 40 MG VIAL IVP SCH (08:27)
[2017-11-18] MEDS: Aspirin Enteric Coated 81 MG Tablet PO SCH (08:27)
[2017-11-18] MEDS: Lactobacillus 1 EACH CAP.SPRINK PO SCH (08:27)
[2017-11-18] MEDS: Multivit/Ca/Min/Fe/FA 1 TAB TABLET PO SCH (08:27)
[2017-11-18] MEDS: Cholecalciferol (D-3) 1,000 UNIT TABLET PO SCH (08:28)
[2017-11-18] MEDS: Levofloxacin 250 MG/50 ML 250 MG/50 ML BAG IVPB SCH (08:28)
[2017-11-18] MEDS: Insulin LISPRO 300 UNITS/3 ML VIAL SQ SCH ×2 (08:28→12:04)
[2017-11-18] MEDS: Apixaban 2.5 MG TABLET PO SCH ×2 (08:28→22:03)
[2017-11-18] MEDS: Diltiazem CD (24hr) 240 MG CAPSULE PO SCH (08:28)
--- NOTE | 2017-11-18 10:34 | ENT - Progress Note ---
Date of Encounter: 11/18/17 Time of Encounter: 07:30 - Assessment and Plan (1) Epistaxis Current Visit: Yes Status: Acute No nasal bleeding or blood/clot in the oropharynx on exam today. Pt is on Eliquis and ASA. Having right hemisphere CVA currently worked up by primary team. Today is day 5 for right rhinorocket. I deflated the balloon this morning on rounds and will plan to remove pack around noon pending no bleeding this morning. Once pack removed, recommend light nasal saline sprays 2-3 times daily. No nose blowing for another 7 days. (2) Hemoptysis Current Visit: Yes Status: Acute (3) Respiratory failure Current Visit: Yes Status: Acute Resolved Qualifiers: Chronicity: acute Respiratory failure complication: hypoxia Qualified Code(s): J96.01 - Acute respiratory failure with hypoxia (4) A-fib Current Visit: Yes Status: Chronic Qualifiers: Atrial fibrillation type: chronic Qualified Code(s): I48.2 - Chronic atrial fibrillation (5) Right hemisphere, cerebral infarction Current Visit: Yes Status: Acute management pre primary. Subjective Patient reports: other (Pt still unable to move left arm and now having left arm pain. Denies any nasal or oral bleeding over the weekend.) Objective Initial Vital Signs Temp Pulse Resp BP Pulse Ox 97.5 F L 109 24 186/104 78 11/13/17 06:13 11/13/17 06:13 11/13/17 06:13 11/13/17 06:13 11/13/17 06:13 - General physical appearance well developed, well nourished, no distress - ENT Other (Right nare rhinorocket without bleeding around pack or within the oropharynx. I deflated the balloon on morning rounds. Will plan to remove the pack this afternoon. ) - Labs 11/17/17 04:00 11/17/17 04:00 - VTE Documentation of Mechanical Device: Intermittent pneumatic compression device Consult Discharge Plan - Plan Referrals: Danette Real, HOME ATTENDANT [Primary Care Provider] -
[2017-11-18] MEDS ORDERED: Isovue-370 500 ML INFUS..BTL IV ONE (14:42)
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
[2017-11-18] MEDS: *HR* HYDROcodone/Acet 5/325 mg TABLET PO PRN (18:02)
--- NOTE | 2017-11-18 21:11 | Internal Med Progress Note ---
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 Both are in the territory of right middle cerebral artery. See notes from Dr. Bennett, neurology. See CT of the brain. MRI of brain is pending. The patient has underlying atrial fibrillation. Carotid duplex shows normal findings. Her echocardiogram from October 22 showed ejection fraction of 55-60% with indeterminant diastolic function. We will continue Elliquis. We will continue physical therapy. She [facility] a [facility] facility. It will happen, as soon as she is stable. (2) A-fib Current Visit: Yes Status: Chronic Assessment and plan: It is rate controlled. We will continue Elliquis. Qualifiers: Atrial fibrillation type: chronic Qualified Code(s): I48.2 - Chronic atrial fibrillation (3) Hypothyroidism Current Visit: Yes Status: Acute Assessment and plan: Clinical under control. We will continue Synthroid. Qualifiers: Hypothyroidism type: acquired Qualified Code(s): E03.9 - Hypothyroidism, unspecified - Time Spent With Patient Total time spent is greater than 50% in coordination of care (as documented) at patient's floor/unit and/or counseling patient: - Subjective Interval history: It was today morning, when we noticed left eye ptosis. She continues to have plegia in left upper extremity. It is associated with mild swelling/pain. Denies chest pain. Denies difficulty breathing. Denies abdominal pain, nausea and vomiting. She has normal urination. - Constitutional Vitals: Temp Pulse Resp BP Pulse Ox 98.3 F 80 18 130/55 96 11/18/17 20:05 11/18/17 20:05 11/18/17 20:05 11/18/17 20:05 11/18/17 20:05 General appearance: Present: A&O X 3, pleasant, no acute distress - Respiratory Respiratory exam: Present: CTAB. Absent: accessory muscle use, rales, rhonchi, wheezes - Cardiovascular Cardiovascular exam: Present: RRR, +S1, +S2. Absent: diastolic murmur, gallop, rubs, systolic murmur - GI/Abdominal GI/Abdominal exam: Present: normal bowel sounds, soft, no peritoneal signs. Absent: distended, tenderness - Skin Skin exam: Present: dry, intact Internal Medicine: Result - Labs CBC & Chem 7: 11/17/17 04:00 11/17/17 04:00 - ABG Interpretation ABG results: ABG ABG pH 7.46 pH Units (7.32-7.45) H 11/14/17 04:30 ABG pCO2 40 mmHg (35-45) 11/14/17 04:30 ABG pO2 116 mmHg (85-104) H 11/14/17 04:30 ABG O2 Saturation 99 % (95-98) H 11/14/17 04:30 PT/INR, D-dimer PT 13.4 Seconds (9.4-12.1) H 11/13/17 21:00 D-Dimer 244 ng/mLFEU (0-500) 11/13/17 06:28 - Impressions Impressions Head CT 11/13/17 20:57 IMPRESSION: No acute intracranial abnormality. Subtle area of nonspecific low attenuation/loss of hernandez-white differentiation in the right posterior frontal lobe, possibly representing small area of age-indeterminate ischemia. No other evidence of large territory infarction. No acute intracranial hemorrhage. Redemonstration of moderate atrophy and periventricular/subcortical white matter low attenuation, likely representing sequela of chronic small vessel ischemic disease. D/ / 11/13/2017 23:12:50 Xavi Rosas MD / arnulfo Interpreting Provider: Xavi Rosas MD Chest X-Ray 11/18/17 09:45 IMPRESSION: Removal of ET tube, NG tube and central line since prior examination. Persistent patchy airspace consolidation in both lungs with bilateral qanu-tahbrpc-neio-right pleural effusions. Findings suggest persistent pneumonia. D/ / Sean Goddard MD / Sean Goddard MD Interpreting Provider: Sean Goddard MD Brain MRI 11/18/17 15:14 IMPRESSION: Acute-subacute superior right frontal lobe infarct not significantly changed in extent. No new, acute infarct is demonstrated. D/ / Jerson Lebron MD / eJrson Lebron MD Interpreting Provider: Jerson Lebron MD Head CT 11/18/17 16:46 IMPRESSION: Interval appearance of a cortically based infarct in the right parietal lobe high convexity since prior study. The patient has senescent changes including chronic microvascular change. Moderate sinus inflammation in the right maxillary and sphenoid sinuses. Other findings as above. D/ / 11/18/2017 17:46:23 Marcia Zapien MD / deisi Interpreting Provider: Marcia Zapien MD - VTE Documentation of Mechanical Device: Intermittent pneumatic compression device Consult Discharge Plan - Plan Referrals: Danette Real, FORM WORKER [Primary Care Provider] -
[2017-11-18] MEDS: Gabapentin 300 MG CAPSULE PO SCH (22:03)
[2017-11-19] MEDS: Levofloxacin 250 MG/50 ML 250 MG/50 ML BAG IVPB SCH (08:36)
[2017-11-19] MEDS: Aspirin Enteric Coated 81 MG Tablet PO SCH (08:37)
[2017-11-19] MEDS: Cholecalciferol (D-3) 1,000 UNIT TABLET PO SCH (08:37)
[2017-11-19] MEDS: Multivit/Ca/Min/Fe/FA 1 TAB TABLET PO SCH (08:37)
[2017-11-19] MEDS: Apixaban 2.5 MG TABLET PO SCH (08:37)
[2017-11-19] MEDS: Saline Nasal Spray 44 ML BOTTLE NS SCH ×3 (08:38→16:14)
[2017-11-19] MEDS: Diltiazem CD (24hr) 240 MG CAPSULE PO SCH (08:38)
[2017-11-19] MEDS: Lactobacillus 1 EACH CAP.SPRINK PO SCH (08:38)
[2017-11-19] MEDS: *HR* HYDROcodone/Acet 5/325 mg TABLET PO PRN (09:48)
--- NOTE | 2017-11-19 10:24 | Neurology Progress Note ---
Date of Encounter: 11/19/17 Time of Encounter: 10:22 Assessment and Plan (1) CVA (cerebral vascular accident) Current Visit: Yes Status: Acute Repeat MRI of brain showed no evidence of extension from previous CVA involving the right frontal region and the left facial droop and left arm weakness certainly are considered part of single CVA event. She is on Apixaban and neurological status is stable. She may benefit from PT. No further testing will be recommended at this time. Please continue medical and supportive care. Will sign off and please call if any questions Qualifiers: CVA mechanism: embolism Precerebral and cerebral artery: middle cerebral artery Laterality of affected vessel: right Qualified Code(s): I63.411 - Cerebral infarction due to embolism of right middle cerebral artery Subjective Principal diagnosis: CVA Interval history: Patient seen and examined. She is doing well and no new neurological compliants. MRI of brain showed no changes from previous with the right MCA territory infarct. CT of head showed no evidence of hemorrhage. She is currently on Apixaban. Has mild left facial droop and left arm weakness. Objective - Constitutional Vitals: Temp Pulse Resp BP Pulse Ox 98.7 F 87 18 130/63 97 11/19/17 06:59 11/19/17 06:59 11/19/17 06:59 11/19/17 06:59 11/19/17 06:59 - Neurological Exam Sensorimotor examination: Present: intact (Grossly intact) Motor Examination: Present: other (There is flaccid weakness of the left upper extremity. I am not able to identify any flicker of movement of the entire left arm. Strength in the left lower extremity is fairly good.) Motor examination - right side: 5/5: deltoids, biceps, triceps, wrist flexion, wrist extension, messenger copy, hip flexors, tibialis Anterior, quadriceps, toe extension (EHL), plantarflexion Motor examination - left side: 4/5: deltoids, biceps, triceps, wrist flexion, wrist extension, hip flexors, messenger copy, quadriceps, tibialis Anterior, toe extension (EHL), plantarflexion Sensation intact: Present: intact (Grossly intact) Posture: Present: other (Nne) Reflex and gait examination: other (Deep tendon reflexes are 1 symmetrically of the biceps, triceps, and brachial radialis. Patellar reflexes are absent symmetrically. Achilles reflexes are absent symmetrically.) Reflexes: Biceps: 1+, Triceps: 1+, Brachioradialis: 1+, Patella: 1+, Achilles: 1 + Mental Status Examination: Present: awake, alert, oriented to person, oriented to place, oriented to time, follows commands appropriately, answers questions appropriately, no agnosia, no aphasia, no aproxia Cranial nerve examination: Present: PERRL, EOMI, visual garcia intact, corneal reflexes brisk symmetrically, sensory to face intact, mastication intact, no facial asymmetry is present (left facial drooping noted, including the left eyelid), no dysarthria, hearing is intact symmetrically, soft palate elevates bilaterally upon phonation, gag reflex intact, flexes SCM and trapezius muscles symmetrically with full power, tongue protrudes midline, no atrophy or facial fasiculations present - VTE Documentation of Mechanical Device: Intermittent pneumatic compression device Results - Laboratory Findings CBC and BMP: 11/17/17 04:00 11/17/17 04:00 Abnormal lab findings: Abnormal lab results RBC 2.72 M/mcL (3.82-4.97) L 11/17/17 04:00 Hgb 7.6 g/dL (11.5-15.4) L 11/17/17 04:00 Hct 23.8 % (35.3-44.9) L 11/17/17 04:00 MCH 27.9 pg (28.0-33.3) L 11/17/17 04:00 RDW 15.8 % (11.5-14.5) H 11/17/17 04:00 Nucleated RBCs/100 WBC 0.2 /100 WBC (0) H 11/14/17 04:10 PT 13.4 Seconds (9.4-12.1) H 11/13/17 21:00 ABG pH 7.46 pH Units (7.32-7.45) H 11/14/17 04:30 ABG pO2 116 mmHg (85-104) H 11/14/17 04:30 ABG HCO3 28 mEq/L (21-27) H 11/14/17 04:30 ABG Total CO2 30 mEq/L (20-26) H 11/14/17 04:30 ABG O2 Saturation 99 % (95-98) H 11/14/17 04:30 ABG Base Excess 4 mEq/L (-2 to 3) H 11/14/17 04:30 Sodium 135 mEq/L (136-145) L 11/17/17 04:00 Glucose 130 mg/dL (70-105) H 11/17/17 04:00 POC Glucose 101 mg/dL (70-99) H 11/18/17 10:44 Calcium 8.3 mg/dL (8.6-10.3) L 11/17/17 04:00 Creatine Kinase 18 Units/L (30-223) L 11/13/17 06:28 B-Natriuretic Peptide 439 pg/mL (Less than 100) H 11/13/17 06:28 Serum Total Protein 6.0 g/dL (6.4-8.9) L 11/13/17 06:28 Globulin 2.3 g/dL (2.4-3.5) L 11/13/17 06:28 Fluid Appearance Hazy (Clear) A 11/13/17 14:35 Consult Discharge Plan - Plan Referrals: Danette Rael, CLASSIFIED AD TAKER [Primary Care Provider] -
[2017-11-19 11:13] VITALS: BP 133/67
--- NOTE | 2017-11-19 11:33 | Physician Discharge Referral ---
ExtendedCare Referral Info Transfer To: [facility] Provider in Charge: Carla Brice Provider in Charge after Transfer: PCP Institutional Level of Care: Skilled - Diagnosis (1) A-fib Priority: Secondary Status: Chronic (2) Diabetes mellitus type 2 in nonobese Priority: Secondary Status: Chronic (3) DVT prophylaxis Priority: Secondary Status: Acute (4) Epistaxis Priority: Primary Status: Resolved (5) GERD (gastroesophageal reflux disease) Priority: Secondary Status: Chronic (6) Respiratory failure Priority: Primary Status: Resolved (7) Right hemisphere, cerebral infarction Priority: Primary Status: Acute (8) Anemia Priority: Secondary Status: Chronic Prognosis: Fair Aware of Diagnosis: Patient, Family Aware of Prognosis: Patient, Family - Transfer Medications Home Medications: Cholecalciferol (Vitamin D3) [Vitamin D3] 1,000 unit PO DAILY 07/20/15 [History] Multivit-Min/FA/Lycopen/Lutein [Centrum Silver Tablet] 1 each PO DAILY 07/20/15 [History] Trihexyphenidyl [Artane] 1 mg PO TID 07/20/15 [History] Amitriptyline [Elavil] 25 mg PO BID 10/21/17 [History] Aspirin [Lo-Dose Aspirin EC] 81 mg PO DAILY 10/21/17 [History] Lactobacillus Acidophilus [Acidophilus Probiotic] 1 mg PO DAILY 10/21/17 [ History] Levothyroxine Sodium [Levoxyl] 75 mcg PO DAILY 10/21/17 [History] Losartan [Cozaar] 50 mg PO QPM 10/21/17 [History] Perphenazine 4 mg PO BID 10/21/17 [History] Wheat Dextrin [Benefiber] 1 each PO DAILY 10/21/17 [History] Albuterol Neb [AccuNeb] 0.63 mg IH Q6H PRN #100 inhsol 10/30/17 [Rx] Apixaban [Eliquis] 5 mg PO BID tablet 10/30/17 [Rx] Furosemide [Lasix] 20 mg PO DAILY #30 tablet 10/30/17 [Rx] Metoprolol [Lopressor] 25 mg PO BID tablet 10/30/17 [Rx] Calcium Carbonate/Vitamin D3 [Calcium 600 + Vit D Tablet] 1 tab PO DAILY [History] Diltiazem HCl [Diltiazem 24Hr Cd] 240 mg PO QAM 11/13/17 [History] Gabapentin [Neurontin] 600 mg PO HS 11/13/17 [History] Omeprazole [PriLOSEC] 20 mg PO DAILY 11/13/17 [History] Potassium Chloride [Klor-Con 10] 10 meq PO DAILY 11/13/17 [History] Atorvastatin [Lipitor] 20 mg PO HS tablet 11/19/17 [Rx] HYDROcodone/Acet 5/325 mg [[place] 5-325 mg] 1 tab PO Q6HR PRN 5 Days #15 tablet 11/19/17 [Rx] Saline Nasal [place] [Burt Nasal Mallard] 2 spray NS Q4H bottle 11/19/17 [Rx] levoFLOXacin [Levaquin] 250 mg PO DAILY tablet 11/19/17 [Rx] Allergies/Adverse Reactions: 3 Allergy/AdvReac Type Severity Reaction Status Date / Time codeine Allergy unsure Verified 03/14/17 13:17 Sulfa (Sulfonamide Allergy Vomiting Verified 03/14/17 13:17 Antibiotics) - Respiratory Orders Smoking Cessation: Smoking cessation has been advised. For more information, call the [employer] Tobacco Quit Line at 2-116-KVSW-NOW. - Advance Directives Code Status: DNR-Arrest/Don't Intubate - Mobility Orders Ambulate - Rehabiliation Orders Rehab Potential: Fair Rehab Orders: Evaluation for Physical Therapy, Evaluation for Occupational Therapy - Diet Orders No Concentrated Sweets, Cardiac CERTIFICATION: I certify that the transfer of the above named patient to an Extended Care Facility is necessary for the continuing treatment of the diagnosis listed. The above information is true and accurate reflection of patient's current condition. Confidential - Redisclosure prohibited without a patient's written consent.
--- NOTE | 2017-11-19 11:36 | Discharge Summary ---
- NOTES TO OUTPATIENT PROVIDER Notes to Outpatient Provider: Patient was admitted for severe epistaxis requiring nasal packing by inand throat physician, acute respiratory failure intubated for airway protection, incidental development of right ischemic CVA inpatient. She is discharged to [facility] facility for [facility]. Neurology recommends continuation of anticoagulation which has since been resumed. Date of Encounter: 11/19/17 Time of Encounter: 10:55 - Discharge Diagnosis (1) A-fib Priority: Secondary Status: Chronic Qualifiers: Atrial fibrillation type: chronic Qualified Code(s): I48.2 - Chronic atrial fibrillation (2) Diabetes mellitus type 2 in nonobese Priority: Secondary Status: Chronic (3) DVT prophylaxis Priority: Primary Status: Acute (4) Epistaxis Priority: Primary Status: Resolved (5) GERD (gastroesophageal reflux disease) Priority: Secondary Status: Chronic Qualifiers: Esophagitis presence: without esophagitis Qualified Code(s): K21.9 - Gastro -esophageal reflux disease without esophagitis (6) Respiratory failure Priority: Primary Status: Resolved Qualifiers: Chronicity: acute Respiratory failure complication: hypoxia Qualified Code(s): J96.01 - Acute respiratory failure with hypoxia (7) Right hemisphere, cerebral infarction Priority: Primary Status: Acute (8) Anemia Priority: Secondary Status: Chronic Qualifiers: Anemia type: unspecified type Qualified Code(s): D64.9 - Anemia, unspecified Hospital course: 87 F with HTN, Afib, HLD She was admitted to the ICU folowing acute hypoxic resp failure , intubated for airway protection due to epistaxis Hosp course significant for development of Acute R embolic CVA with residual LUE weakness She was extubated 11/15, no new events, stable on room air Acute hypoxic respiratory failure and epistaxis has resolved. ENT has removed both nasal packs. The patient also has left upper extremity swelling, tobacco thrombosis ruled out. She has superficial venous thrombosis. Anticoagulation with Eliquis and aspirin has been resumed since 11/15, hemodynamically stable. Neurology was reconsulted due to new left facial droop, which is in the same fashion as the initial CVA. Carotid Doppler ultrasound was negative for stenosis or plaques. Assessment and evaluated at the bedside this morning with family members, she has no new complaints, she is medically stable to resume rehabilitation at skilled facility. Bronchioloalveolar lavage and cultures are negative, blood cultures are negative , however, she should continue Levaquin for MRSA coverage for the nasal packing for 4 more days. Follow up with PCP upon discharge from SNF Patient is DNR-DNI Discharge discussed with: patient, family, nurse, case management, desktop support consultant - Time Spent with Patient Total time spent providing and/or coordinating discharge services: Greater than 30 minutes - Discharge Medications Prescriptions: HYDROcodone/Acet 5/325 mg [[place] 5-325 mg] 1 tab PO Q6HR PRN 5 Days #15 tablet PRN Reason: Moderate to severe pain Home Medications: Cholecalciferol (Vitamin D3) [Vitamin D3] 1,000 unit PO DAILY 07/20/15 [History] Multivit-Min/FA/Lycopen/Lutein [Centrum Silver Tablet] 1 each PO DAILY 07/20/15 [History] Trihexyphenidyl [Artane] 1 mg PO TID 07/20/15 [History] Amitriptyline [Elavil] 25 mg PO BID 10/21/17 [History] Aspirin [Lo-Dose Aspirin EC] 81 mg PO DAILY 10/21/17 [History] Lactobacillus Acidophilus [Acidophilus Probiotic] 1 mg PO DAILY 10/21/17 [ History] Levothyroxine Sodium [Levoxyl] 75 mcg PO DAILY 10/21/17 [History] Losartan [Cozaar] 50 mg PO QPM 10/21/17 [History] Perphenazine 4 mg PO BID 10/21/17 [History] Wheat Dextrin [Benefiber] 1 each PO DAILY 10/21/17 [History] Albuterol Neb [AccuNeb] 0.63 mg IH Q6H PRN #100 inhsol 10/30/17 [Rx] Apixaban [Eliquis] 5 mg PO BID tablet 10/30/17 [Rx] Furosemide [Lasix] 20 mg PO DAILY #30 tablet 10/30/17 [Rx] Metoprolol [Lopressor] 25 mg PO BID tablet 10/30/17 [Rx] Calcium Carbonate/Vitamin D3 [Calcium 600 + Vit D Tablet] 1 tab PO DAILY [History] Diltiazem HCl [Diltiazem 24Hr Cd] 240 mg PO QAM 11/13/17 [History] Gabapentin [Neurontin] 600 mg PO HS 11/13/17 [History] Omeprazole [PriLOSEC] 20 mg PO DAILY 11/13/17 [History] Potassium Chloride [Klor-Con 10] 10 meq PO DAILY 11/13/17 [History] Atorvastatin [Lipitor] 20 mg PO HS tablet 11/19/17 [Rx] HYDROcodone/Acet 5/325 mg [[place] 5-325 mg] 1 tab PO Q6HR PRN 5 Days #15 tablet 11/19/17 [Rx] Saline Nasal [place] [[place] Nasal [place]] 2 spray NS Q4H bottle 11/19/17 [Rx] levoFLOXacin [Levaquin] 250 mg PO DAILY tablet 11/19/17 [Rx] Allergies/Adverse Reactions: 3 Allergy/AdvReac Type Severity Reaction Status Date / Time codeine Allergy unsure Verified 03/14/17 13:17 Sulfa (Sulfonamide Allergy Vomiting Verified 03/14/17 13:17 Antibiotics) Date of admission: 11/13/17 12:59 Primary care physician: Danette Real CNP Consults: 11/14/17 14:35 Consult to Neurology [CONS] Stat Consulting Provider: Neurology [facility] Reason for Consult: stroke Time Notified: 14:35 Call Completed: Yes 11/14/17 15:56 Consult to Polishing Wheel Repairer [CONS] Routine Reason for SW Consult: discharge planning, wishes for placement at [facility] 11/15/17 11:56 Consult to Invasive Line Access Team [CONS] Routine Reason for Consult: poor access, remove cvc Line Type: EPIV 11/15/17 14:21 Consult to Physical Therapy [CONS] Routine Comment: Evaluate, develop and implement POC Reason for Consult: stroke, l arm weakness Does patient have active BEDREST order?: No Is patient medically & hemodynamically stable?: Yes 11/16/17 08:11 Consult to Occupational Therapy [CONS] Routine Comment: Evaluate, develop and implement POC Reason for Consult: LUE weakness, CVA Does patient have active BEDREST order?: No Is patient medically & hemodynamically stable?: Yes 11/18/17 15:38 Consult to Neurology [CONS] Routine Consulting Provider: Neurology [facility] Reason for Consult: NEW L EYE PTOSIS Time Notified: 15:40 Call Completed: Yes Discharging clinician: Yuniel Aguirre Anticipated date of discharge: 11/19/17 - Constitutional Vitals: Temp Pulse Resp BP Pulse Ox 98.3 F 82 18 133/67 95 11/19/17 11:06 11/19/17 11:06 11/19/17 11:06 11/19/17 11:06 11/19/17 11:06 General appearance: Present: A&O X 3, pleasant, no acute distress - Head Head exam: Present: atraumatic, normocephalic - Eye Eye exam: Present: PERRL, conjuntiva pink, sclera anicteric Pupils: Present: PERRL - Neck Neck exam general surgery: Present: supple, trachea midline. Absent: lymphadenopathy - Respiratory Respiratory exam: Present: CTAB. Absent: accessory muscle use, rales, rhonchi, wheezes - Cardiovascular Cardiovascular exam: Present: RRR, +S1, +S2. Absent: diastolic murmur, gallop, rubs, systolic murmur - GI/Abdominal GI/Abdominal exam: Present: normal bowel sounds, soft, no peritoneal signs. Absent: distended, tenderness - Extremities Exam Additional comments: LUE swelling, no tenderness, LUE weaknes, power 1/5 - Neurological Exam Neurological exam: Present: alert, CN II-XII intact, oriented X3, facial droop. Absent: pronater drift, speech deficit Additional comments: LUE paralysis - Skin Skin exam: Present: dry, intact - Patient Status Disposition: Transfer SNF Condition: Fair Functional capacity at discharge: bed bound Overall status at discharge: patient is progressing back to baseline - Discharge Instructions Follow Up With: Danette Real, COMBATANT DIVER QUALIFIED [Primary Care Provider] - - Diet and Activity Activity: as per physical therapy, resume usual activities as tolerated Diet: low fat, low cholesterol, low salt diet - VTE Documentation of Mechanical Device: Intermittent pneumatic compression device
--- NOTE | 2017-11-19 21:03 | Event Note ---
Date of Encounter: 11/18/17 Time of Encounter: 19:00 The patient was admitted with epistaxis. Subsequently, she has developed acute blood loss anemia. Her anemia seems to be stable at this time. I am adding that problem to her problems list.
[2017-11-20] MEDS ORDERED: levoFLOXacin 250 MG TABLET PO SCH (09:00)
== END 2017-11-19 18:18 | DRG 166 ==
LOC: EMEROO 06:10 → ICNU 12:59 → SUATTDRO 12:59 → ICNU 13:16 → 2NENU 11-16 11:54
PROVIDERS: ADMIT Internal Medicine Pulmonary Disease; ATTEND Internal Medicine